=== PATIENT | male | born 2000 | race Caucasian/White ===

== ENCOUNTER 2024-05-23 09:43 | Inpatient (IN) | payer BC, MEDICAID, SELFPAY ==
--- NOTE | 2024-05-23 | ECG_ITS ---
Test Reason : prolonged qt? Blood Pressure : / mmHG Vent. Rate : 095 BPM Atrial Rate : 095 BPM P-R Int : 156 ms QRS Dur : 098 ms QT Int : 338 ms P-R-T Axes : 069 070 060 degrees QTc Int : 424 ms Normal sinus rhythm Normal ECG No previous ECGs available Referred By: Generic ED Physician Electronically Signed By:LISA GARRIDO
--- NOTE | ~2024-05-23 | MR_ITS ---
EXAMINATION: MR BRAIN WITHOUT AND WITH CONTRAST CLINICAL INFORMATION: neur Sx and psychosis COMPARISON: None TECHNIQUE: Multiplanar multisequence MR imaging of the brain was obtained without and following the administration of 9 mL Gadavist intravenous contrast. FINDINGS: There is no acute infarct on diffusion-weighted imaging. There is no intracranial hemorrhage on iron-sensitive imaging. No extra-axial collection or mass effect/herniation. Normal parenchymal signal characteristics. No hydrocephalus. The ventricles are normal in morphology and size. No abnormal parenchymal or extra-axial enhancement. The major flow voids at the skull base are preserved. The midline structures are normal. The cerebellar tonsils are normally positioned. The craniocervical junction is normal. Marrow signal is within normal limits. The visualized soft tissues are without significant abnormality. Mild paranasal sinus mucosal thickening. Small retention cysts in the right frontal and posterior right ethmoid sinuses. MR/MR head/brain wo/w con IMPRESSION: Unremarkable contrast enhanced MRI of the brain. Electronically signed by: Misha Spears MD 05/29/2024 12:43 PM EDT
--- NOTE | ~2024-05-23 | XR_ITS ---
EXAMINATION: CHEST 2 VIEWS CLINICAL INFORMATION: SOB. COMPARISON: No recent pertinent prior studies are available for comparison. TECHNIQUE: PA and lateral views of the chest obtained. FINDINGS: The lungs are well expanded. No focal infiltrate, effusion, edema, or pneumothorax. Cardiac and mediastinal silhouettes are within normal limits for technique. No acute bony abnormality seen XR/XR chest 2V IMPRESSION: No evidence of acute disease Electronically signed by: Cholo Lopez MD 05/24/2024 04:32 PM EDT
[2024-05-23 09:52] VITALS: BP 149/95; PULSE 94; RESP 16; TEMP 36; O2SAT 99; BMI 25.6
[2024-05-23 10:12] LABS: MANUAL DIFF FLAG NO
[2024-05-23 10:16] LABS: Appearance Urine Clear; Basophils Percent Auto 0.2 % (0-2); Color Urine Yellow; Eosinophils Percent Auto 0.3 % (0-4); Glucose Urine UA Negative (Negative); Hematocrit 47.1 % (42.0-52.0); Imm Gran Abs Auto 0.04 X10*3/uL (0.00-0.03); Imm Gran Pct Auto 0.4 % (0.0-0.4); Leukocyte Esterase Urine Negative (Negative); Lymphocytes Absolute Auto 0.9 X10*3/uL (1.2-4.9); Lymphocytes Percent Auto 9.3 % (20-40); Mean Corpuscular Hemoglobin 28.5 pg (27.0-33.0); Mean Platelet Volume 8.2 fL (9.4-12.4); Monocytes Absolute Auto 0.6 X10*3/uL (0.1-1.2); Monocytes Percent Auto 6.6 % (2-11); Neutrophils Absolute Auto 7.7 x10*3/uL (2.0-8.3); Neutrophils Percent Auto 83.2 % (45-73); Nitrite Urine Negative (Negative); Platelet Count 258 X10*3/uL (160-400); Red Blood Count 5.61 X10*6/uL (4.60-5.80); Red Cell Distribution Width 13.2 % (11.0-16.0); Specific Gravity - Urine >= 1.030 (1.005-1.025); Urine Blood Negative (Negative); Urine Ketones Negative (Negative); Urine Protein Negative (Neg-Trace); White Blood Count 9.3 X10*3/uL (4.8-10.8)
[2024-05-23 10:25] LABS: Amphetamine Screen Urine Not Detected (Not Detect); Barbiturates, Urine Not Detected (Not Detect); Benzodiazepines Screen Urine Not Detected (Not Detect); Buprenorphine Scr Not Detected (Not Detect); Cannabinoid Screen Urine Not Detected (Not Detect); Cocaine Screen Urine Not Detected (Not Detect); Fentanyl, urine Not Detected (Not Detect); Methadone Screen, Urine Not Detected (Not Detect); Opiate Screen Urine Not Detected (Not Detect); Oxycodone Screen Urine Not Detected (Not Detect); Phencyclidine Screen Urine Not Detected (Not Detect)
[2024-05-23 10:26] LABS: Alanine Aminotransferase 26 U/L (0-40); Albumin Level 4.8 g/dL (3.5-5.0); Alkaline Phosphatase 39 U/L (39-117); Anion Gap 14 (12-20); Aspartate Amino Transferase 20 U/L (5-37); Bilirubin Total 0.8 mg/dL (0.0-1.0); Blood Urea Nitrogen 15 mg/dL (9-16); Calcium 10.1 mg/dL (8.4-10.2); Carbon Dioxide 24 mmol/L (22-29); Chloride 106 mmol/L (96-108); Creatinine Clr Calc Pharmacy 128.2; Estimated Glomerular Filt Rate > 60; Glucose Random 126 mg/dL (60-115); Sodium 140 mmol/L (135-145); Total Protein 8.4 g/dL (6.5-8.0)
[2024-05-23 10:32] VITALS: RESP 16
--- NOTE | 2024-05-23 10:41 | PC.NURSE ---
Pt is calm and cooperative, endorsing HI thoughts without a specific plan. He reports that he has been having these intrusive HI thoughts for a few months now. Was recently admitted to [facility] but felt his stay there was not helpful. he states that he spent the majority of his stay in his room, not benefitting from treatment, mom is at the bedside and agrees the stay there was non-beneficial. per mom, patient was recently homeless and they got him back home about 1 month ago where he went to respite but left early. Patient denies SI at this time, is calm and cooperative, alert and oriented x4, no apparent distress at this time
--- NOTE | 2024-05-23 11:12 | ED.GENADULT ---
HPI - General Adult General Chief complaint: Psychiatric Symptoms Stated complaint: behavioral and medical issues Time Seen by Provider: 05/23/24 11:12 Source: patient Mode of arrival: ambulatory Limitations: no limitations History of Present Illness ED Provider: Berna Godinez PA-C HPI narrative: Patient is a 23 year old assigned male at with a history of headaches presenting to the emergency department today with a right sided headache and intrusive thoughts to hurt people. Patient states that these thoughts have been going on for months and he has tried multiple medications and multiple facilities but has not been able to get them under control. Patient states that he was also recently seen for these right sided headaches, had a CT / CTA done, that did not show anything acute. States that he has an appointment scheduled with a neurologist this upcoming Saturday for these headaches. Patient denies any dizziness, lightheadedness, abdominal pain, nausea, vomiting, fever, chills, blurry vision, double vision, loss of vision, chest pain, difficulty breathing, shortness of breath, back pain, night sweats, pain with urination, increased urinary frequency, increased urinary urgency, blood in his urine or stool, syncope or a near syncopal episode, recent trauma or falls, bowel incontinence, bladder incontinence, or any other complaints at this time. Relieving factors: none Exacerbating factors: none Associated symptoms: denies other symptoms Related Data Home Medications ?Medication ?Instructions ?Recorded ?Confirmed clonidine HCl 0.1 mg tablet 0.1 mg PO QID 05/23/24 05/23/24 escitalopram oxalate 5 mg tablet 5 mg PO DAILY 05/23/24 05/23/24 nicotine 21 mg/24 hr daily 1 patch topical DAILY 05/23/24 05/23/24 transdermal patch olanzapine 20 mg tablet 20 mg PO BEDTIME 05/23/24 05/23/24 Allergies Allergy/AdvReac Type Severity Reaction Status Date / Time morphine Allergy Rash Verified 05/23/24 09:54 oxycodone Allergy Rash Verified 05/23/24 09:54 Review of Systems Constitutional: Constitutional: Reports no additional constitutional complaints, Denies chills, Denies fever(s), Reports headache(s) and Denies night sweats Eyes: Eyes: Reports no additional eye complaints, Denies blurry vision, Denies change in vision, Denies diplopia, Denies eye discharge, Denies loss of vision and Denies eye pain ENT: Denies dizziness and Reports headache(s) Cardiovascular: Cardiovascular: Reports no additional cardiovascular complaints, Denies chest pain, Denies lightheadedness, Denies Loss of Consciousness and Denies dyspnea Respiratory: Respiratory: Reports no additional respiratory complaints and Denies dyspnea Gastrointestinal: Gastrointestinal: Reports no additional gastrointestinal complaints, Denies abdominal pain, Denies melena, Denies hematochezia, Denies change in bowel habits and Denies change in stool character Genitourinary: Genitourinary: Reports no additional male genitourinary complaints, Denies hematuria, Denies oliguria, Denies difficulty urinating, Denies dysuria, Denies urinary frequency, Denies urinary hesitancy, Denies urinary incontinence and Denies urinary urgency Musculoskeletal: Musculoskeletal: Reports no additional musculoskeletal complaints, Denies numbness and Denies tingling Neurologic: Denies dizziness, Reports headache(s), Denies loss of vision, Denies numbness and Denies tingling Psychiatric: Psychiatric: Reports homicidal ideation Endocrine: Endocrine: Reports no additional endocrine complaints Hematologic/Lymphatic: Hematologic/Lymphatic: Reports no additional hematologic/lymphatic complaints Allergic/Immunologic: Allergic/Immunologic: Reports no additional allergic/immunologic complaints PMFSH Past Medical History Attestation statement: The following information was validated with the patient. Source: old records reviewed and nursing notes reviewed Social History Social History Smoked in Last 30 Days: Yes Use of substances other than those prescribed or required for medical reasons: No Advance Directives: No Do you have a plan to hurt others: No Plan Physical Exam ED Vital Signs: Vital Signs - 24 hr 05/23/24 09:52 05/23/24 10:32 05/23/24 13:34 Temperature 96.8 F Pulse Rate 94 Respiratory Rate 16 16 14 Blood Pressure 149/95 H Pulse Oximetry 99 Oxygen Delivery Method Room Air 05/23/24 19:49 05/23/24 19:53 05/24/24 06:18 Temperature 98.2 F 98.2 F Pulse Rate 110 H 82 Respiratory Rate 18 17 Blood Pressure 125/74 125/74 112/67 Pulse Oximetry 96 99 Oxygen Delivery Method Room Air Room Air BMI result Body Mass Index 25.6 Const General: cooperative, no acute distress, alert and awake Nutritional Appearance: well nourished Orientation/consciousness: patient oriented x3 Limitations: no limitations HENMT Head: Yes normal to inspection and Yes atraumatic Ears: hearing grossly normal bilaterally and external ears normal General nose exam: Normal external nose present, no nasal discharge noted and no epistaxis Face and sinus: Yes normal facial exam, No abrasion and No laceration Mouth: Normal oral and palatal mucosa present, no drooling and no muffled voice Eyes General: appearance normal, both eyes and all related structures Periorbital: periorbital findings normal Eyelids: Yes eyelids normal Conjunctivae: conjunctivae normal Pupils: Equal, round and reactive pupils present EOM: EOMs intact bilaterally Neck Neck: Yes normal visual inspection, Yes full ROM and Yes no lymphadenopathy Chest Chest palpation & inspection: normal inspection of the chest Resp Effort & Inspection: normal respiratory effort and able to speak in complete sentences GI Inspection: Yes normal to inspection Neuro General: patient oriented x3 and moves all extremities Cranial nerves: Yes Equal, round and reactive pupils present Cognition (Neuro): normal cognition Extrem General: Yes normal to inspection, Yes full ROM and Yes capillary refill normal Psych Appearance: grossly normal Mental Status: mental status grossly normal Affect: normal affect Attitude: cooperative Thought process: Normal thought process present Thought content: Normal thought content present Insight: Good insight present (Psych) Medications Administered Generic Name Dose Route Start Last Admin Trade Name Freq PRN Reason Stop Dose Admin Clonidine HCl 0.1 mg 05/23/24 21:00 05/23/24 19:53 Clonidine Hcl 0.1 Mg Tablet PO 0.1 mg QID RAVEN Administration Protocol Olanzapine 20 mg 05/23/24 21:00 05/23/24 19:53 Olanzapine 10 Mg Tablet PO 20 mg BEDTIME RAVEN Administration Discontinued Medications Generic Name Dose Route Start Last Admin Trade Name Freq PRN Reason Stop Dose Admin Acetaminophen/Butalbital/Caffeine 1 tab 05/23/24 12:49 05/23/24 13:19 Butalb/Acetamin/Caff 50/325/40 Tablet PO 05/23/24 12:50 1 tab ONCE ONE Administration Lorazepam 2 mg 05/23/24 11:15 05/23/24 11:30 Lorazepam 1 Mg Tablet PO 05/23/24 11:16 2 mg ONCE ONE Administration Medical Decision Making Medical Decision Making MDM Narrative: Patient is a 23 year old assigned male at with a history of headaches presenting to the emergency department today with a headache and intrusive thoughts to hurt others. Patient's physical exam was unremarkable. Patient's blood work was unremarkable. Patient's urine showed no acute process. I explained my physical exam findings as well as all test results to the patient. I answered all questions asked by the patient. Patient's disposition will be determined after CARE team evaluation. 05/24/2024 at 06:52 hours, insert name's note Continue physician observation Patient was been in the emergency department for 21 hours and 8 minutes. Patient has been evaluated by the care team and is a section 12 and is in in-patient bed search for passive homicidal ideation. There were no reported incidents on this patient by the overnight nursing staff.Patient will remain in the emergency department Behavioral Health Unit until disposition can be determined or until patient's symptoms improve over time. Differential Diagnosis Differential Diagnoses: The differential diagnosis associated with the presentation includes Intrusive thoughts Tension headaches Cluster headaches Trigeminal neuralgia Migraine Admission/Observation Consideration of admission/observation: Escalation of care including admission/observation considered Patient's disposition will be determined after CARE team evaluation. Lab Data [facility] Lab Attestation statement: I reviewed the patient's lab results. My interpretation of these results are in the MDM Rationale portion of this note. 05/23/24 10:07 05/23/24 10:07 Labs: Lab Results 05/23/24 05/23/24 Range/Units 10:07 13:10 WBC 9.3 (4.8-10.8) X10*3/uL RBC 5.61 (4.60-5.80) X10*6/uL Hgb 16.0 (14.0-18.0) g/dl Hct 47.1 (42.0-52.0) % MCV 84.0 (80.0-98.0) fL MCH 28.5 (27.0-33.0) pg MCHC 34.0 (31.0-36.0) g/dl RDW 13.2 (11.0-16.0) % Plt Count 258 (160-400) X10*3/uL MPV 8.2 L (9.4-12.4) fL Immature Gran % (Auto) 0.4 (0.0-0.4) % Neut % (Auto) 83.2 H (45-73) % Lymph % (Auto) 9.3 L (20-40) % Villalba % (Auto) 6.6 (2-11) % Eos % (Auto) 0.3 (0-4) % Baso % (Auto) 0.2 (0-2) % Lymph # (Auto) 0.9 L (1.2-4.9) X10*3/uL Villalba # (Auto) 0.6 (0.1-1.2) X10*3/uL Eos # (Auto) 0.0 (0.0-0.4) X10*3/uL Baso # (Auto) 0.0 (0.0-0.2) X10*3/uL Abs Immat Gran (auto) 0.04 H (0.00-0.03) X10*3/uL Absolute Neuts (auto) 7.7 (2.0-8.3) x10*3/uL Absolute Nucleated RBC 0.000 (0.0-0.012) X10*3/uL Nucleated RBC % (auto) 0.0 (0.0-0.2) /100WBC Sodium 140 (135-145) mmol/L Potassium 4.0 (3.3-5.1) mmol/L Chloride 106 (96-108) mmol/L Carbon Dioxide 24 (22-29) mmol/L Anion Gap 14 (12-20) BUN 15 (9-16) mg/dL Creatinine 1.03 (0.5-1.4) mg/dL Estim Creat Clear Calc 128.2 Estimated GFR > 60 Random Glucose 126 H (60-115) mg/dL Calcium 10.1 (8.4-10.2) mg/dL Total Bilirubin 0.8 (0.0-1.0) mg/dL AST 20 (5-37) U/L ALT 26 (0-40) U/L Alkaline Phosphatase 39 (39-117) U/L Total Protein 8.4 H (6.5-8.0) g/dL Albumin 4.8 (3.5-5.0) g/dL Urine Color Yellow Urine Appearance Clear Urine pH 7.0 (5.0-9.0) Ur Specific Ulmer >= 1.030 H (1.005-1.025) Urine Protein Negative (Neg-Trace) mg/dL Urine Glucose (UA) Negative (Negative) mg/dL Urine Ketones Negative (Negative) mg/dL Urine Blood Negative (Negative) Urine Nitrite Negative (Negative) Ur Leukocyte Esterase Negative (Negative) Urine Opiates Screen Not Detected (Not Detect) Ur Buprenorphine Scrn Not Detected (Not Detect) ng/mL Ur Oxycodone Screen Not Detected (Not Detect) ng/mL Urine Methadone Screen Not Detected (Not Detect) ng/mL Urine Fentanyl Screen Not Detected (Not Detect) Ur Barbiturates Screen Not Detected (Not Detect) Ur Phencyclidine Scrn Not Detected (Not Detect) Ur Amphetamines Screen Not Detected (Not Detect) U Benzodiazepines Scrn Not Detected (Not Detect) Urine Cocaine Screen Not Detected (Not Detect) U Marijuana (THC) Screen Not Detected (Not Detect) T.pallidum Ab (EIA) Nonreactive (Nonreactive) Critical Care Time Critical Care Time Critical Care Time: Yes Total Critical Care Time: 42 Attestation: I spent 42 minutes of Critical Care Time with this patient. This does not include time spent on separately reported billable procedures. Discharge Plan Discharge Clinical Impression: Homicidal ideation, Headache Patient Disposition: Still a Patient Prescriptions: No Action clonidine HCl 0.1 mg tablet 0.1 mg PO QID nicotine 21 mg/24 hr patch 24 hour 1 patch topical DAILY olanzapine 20 mg tablet 20 mg PO BEDTIME escitalopram oxalate 5 mg tablet 5 mg PO DAILY Interventions: Finley-Suicide Risk Severity Scale Last Done: 05/23/24 10:31 Print Language: [place]ese
[2024-05-23] MEDS: LORazepam 1 MG TABLET 2 MG PO (11:30)
--- NOTE | 2024-05-23 13:07 | PC.NURSE ---
pt reports feeling like his head is burning (approximately 30 minutes after taking Ativan PO). RAJEEV stephenson, saw patient at bedside
[2024-05-23] MEDS: Butalb/Acetamin/Caff 50/325/40 TABLET 1 TAB PO (13:19)
[2024-05-23 13:34] VITALS: RESP 14
[2024-05-23 13:51] LABS: Syphilis Screen Nonreactive (Nonreactive)
--- NOTE | 2024-05-23 17:02 | PHA.MEDREC ---
Pharmacy Consult ? Medication Reconciliation Pharmacy has reviewed the medication reconciliation.
--- NOTE | 2024-05-23 19:18 | PC.NURSE ---
patient appears to remain at rest presently respirations are even and unlabored patient appears in no distress.
[2024-05-23 19:49] VITALS: BP 125/74; PULSE 110; RESP 18; TEMP 36.8; O2SAT 96
[2024-05-23 19:53] VITALS: BP 125/74
[2024-05-23] MEDS: cloNIDine HCL 0.1 MG TABLET PO (19:53)
[2024-05-23] MEDS: OLANZapine 10 MG TABLET 20 MG PO (19:53)
[2024-05-24 06:18] VITALS: BP 112/67; PULSE 82; RESP 17; TEMP 36.8; O2SAT 99
--- NOTE | 2024-05-24 06:58 | PC.NURSE ---
Assumed care of patient at 0645, patient appears to be sleeping, respirations even and unlabored, no apparent distress noted. Continue plan of care for inpatient bedsearch on section 12a
[2024-05-24] MEDS: Nicotine 21 MG PATCH.TD24 TRANSDERMA (08:38)
[2024-05-24] MEDS: Escitalopram Oxalate 5 MG TABLET PO (08:38)
[2024-05-24] MEDS: Butalb/Acetamin/Caff 50/325/40 TABLET 1 TAB PO (11:19)
--- NOTE | 2024-05-24 11:52 | PC.NURSE ---
Pts aunt stopped by, left phone number so patient can call if he wants someone to talk to or hang out with. Lise (Aunt): [phone]
[2024-05-24 14:00] VITALS: PULSE 97; RESP 16; TEMP 36.6; O2SAT 97
[2024-05-24] MEDS: LORazepam 1 MG TABLET PO (15:02)
--- NOTE | 2024-05-24 15:07 | PC.NURSE ---
Pt reporting some mild dif breathing with inspiration. All lung sounds clear at this time. He is also reporting feeling run down an feverish, pt found to have low grade temp of 100.1. Plan for covid swab, Dr. Srikanth modi texted to determine next steps at this time
[2024-05-24 15:08] VITALS: TEMP 37.8
[2024-05-24 16:04] LABS: Influenza A PCR NEGATIVE (Negative); Influenza B PCR NEGATIVE (Negative); Resp Syncy Virus RNA Qual PCR NEGATIVE (Negative); SARS COV2 PCR INHOUSE NEGATIVE (Negative)
--- NOTE | 2024-05-24 19:02 | PC.NURSE ---
patient appears to remain at rest presently respirations are even and unlabored patient appears in no distress
[2024-05-24] MEDS: cloNIDine HCL 0.1 MG TABLET PO (22:02)
[2024-05-24] MEDS: OLANZapine 10 MG TABLET 20 MG PO (23:09)
[2024-05-24 23:12] VITALS: BP 112/66; PULSE 125; RESP 16; TEMP 36.7; O2SAT 96
--- NOTE | 2024-05-25 | ECG_ITS ---
Test Reason : CHEST PAIN Blood Pressure : / mmHG Vent. Rate : 090 BPM Atrial Rate : 090 BPM P-R Int : 148 ms QRS Dur : 096 ms QT Int : 336 ms P-R-T Axes : 064 075 062 degrees QTc Int : 411 ms Normal sinus rhythm Normal ECG When compared with ECG of 23-MAY-2024 09:56, No significant change was found Referred By: Generic ED Physician Electronically Signed By:LISA GARRIDO
[2024-05-25 06:03] VITALS: BP 130/78; PULSE 67; RESP 16; TEMP 36.3; O2SAT 97
[2024-05-25] MEDS: Nicotine 21 MG PATCH.TD24 TRANSDERMA (08:20)
[2024-05-25 10:10] VITALS: BP 142/83; PULSE 98; RESP 18; TEMP 36.5; O2SAT 99
[2024-05-25 10:16] LABS: Glucose, Whole Blood 110 mg/dL (60-115)
[2024-05-25] MEDS: LORazepam 1 MG TABLET PO (11:36)
[2024-05-25 18:04] LABS: Lyme Abs Screen <0.90 index
[2024-05-25 18:19] LABS: A. Phagocytphilium DNA,RT-PCR NOT DETECTED (NOT DETECTED); Babesia Microti DNA, RT-PCR NOT DETECTED (NOT DETECTED); Borrelia Miyamotoi,DNA RT-PCR NOT DETECTED (NOT DETECTED); E.Chaffeensis DNA RT-PCR NOT DETECTED (NOT DETECTED); Lyme(Borrelia ssp)DNA RT-PCR NOT DETECTED (NOT DETECTED)
--- NOTE | 2024-05-25 20:48 | PC.NURSE ---
patient appears to continue to remain at rest, respirations are even and unlabored patient appears in no distress.
[2024-05-25] MEDS: OLANZapine 10 MG TABLET 20 MG PO (21:15)
[2024-05-25 21:16] VITALS: BP 135/75; PULSE 105; RESP 18; TEMP 36.3; O2SAT 97
[2024-05-26] MEDS: Nicotine 21 MG PATCH.TD24 TRANSDERMA (08:06)
--- NOTE | 2024-05-26 14:08 | PC.NURSE ---
Patient is eating a pudding at this time.
[2024-05-26] MEDS: Acetaminophen 325 MG TABLET 650 MG PO (14:18)
[2024-05-26 15:40] VITALS: BP 137/85; PULSE 109; RESP 22; TEMP 36.7; O2SAT 98
[2024-05-26] MEDS: LORazepam 1 MG TABLET 2 MG PO (16:20)
[2024-05-26 17:42] VITALS: PULSE 98; RESP 18; O2SAT 99
[2024-05-26 17:43] VITALS: BMI 25.7
--- NOTE | 2024-05-26 19:04 | PC.ADMIT ---
Gail is a 23 y/o male that was admitted to at 1535 from? the pod on CV for treatment of psychosis and HI. Pt presented to the ED after his mother encouraged him d/t increasing intrusive thoughts and command AH telling him to harm others. Pt was recently d/c?d on 05/21/24 from [facility]. Pt has been refusing to take his Lexapro because he ?doesn't like the way it makes me feel?. Recently pt has stopped attending to his ADLs. Pt reported ?I just don?t feel right. I feel like my head is not clear. There is something wrong with me.? Pt was cooperative with some of the admission process then showered and slept.? Pt was slightly slow to respond and offered limited responses. A&O x4. Mood is anxious. Affect is flat. Speech clear, tone was flat.? Pt reported having AH that are command in nature. The AH are telling him to harm others. Mother reported that he has a hx of trauma but did not elaborate. Pt recently impulsively moved to [place] where he rented a car and refused to return in, then moved to [place] where he was homeless and has recently moved back home.? Pt denied SI at this time but did endorse intrusive HI thoughts. Thoughts include killing his dog and harming his grandmother. Pt is paranoid and believes that people are reading and hearing his thoughts. Pt reported poor appetite and sleep. Pt eye contact was intense. Tox Screen was negative. Hx of medication non compliance.? Pt reported that he uses a vape frequently and occasionally smokes marijuana and drinks alcohol. Pt is unemployed and currently lives with his grandmother. Pt was compliant with skin check, acne scarring throughout back. Pt was placed on 15 min checks for safety. Tox screen was negative.?
[2024-05-26] MEDS: OLANZapine 10 MG TABLET 30 MG PO (19:53)
[2024-05-26 20:00] VITALS: BP 127/74; PULSE 95; RESP 18; TEMP 36.4; O2SAT 97
[2024-05-26] MEDS: cloNIDine HCL 0.1 MG TABLET PO (20:07)
[2024-05-27 07:48] VITALS: BP 112/57; PULSE 81; RESP 20; TEMP 37; O2SAT 98
[2024-05-27] MEDS: Nicotine 21 MG PATCH.TD24 TRANSDERMA (08:38)
--- NOTE | 2024-05-27 10:30 | P.HPPS_ITS ---
HPI Date of Service: 05/27/24 Chief Complaint: HI/psychosis Sources of Information: patient interviewed, chart reviewed and crisis/core team assessment reviewed HPI Subjective Notes: Craft Warning and Conditional Voluntary Narrative: 23 yo male, to ER with mother due to increasing sx of intrusive thoughts to kill his dog, CAH telling him to harm others, HI toward grandmother whom he lives with, difficulty with ADL's (mom reports no shower~3 days), paranoia, decrease in focus, and feeling others are watching him, listening to him and reading his thoughts. Reports CAH telling him to act on intrusive homicidal thoughts. Reports poor sleep, appetite. Pt tells team he wants help. Mother reports pt went to [place] impulsively to live with a friend, returning 1.5 months ago. While there, he rented a vehicle, refused to return it, tinted the windows and attempted to keep it. He was asked to leave friends apartment, so he went to [place] and lived on the streets. Met with pt today who reports he does think that others are watching him, listening to him, saying critical things about him and he is having intrusive thoughts to harm his family. Reports these sx have been present for a few months, and the intrusive thoughts have just started. Reports symptoms of memory loss, concentration decrease, decrease in social skills, I feel like I am losing myself to psychosis. I think I will need to stay a long while. Past Psychiatric History: IP: 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 Next appt 06/08/24 Fuad Estrada [phone] EMDR- scheduled for 05/27/24 to begin PHP: Hx Trials: Lexapro- makes me feel wierd , causes pressure headache, Sertraline, Lamictal, Vyvanse, Olanzapine- I think it should increase Medical Evaluation Reviewed: Yes [facility] Medical History (Updated 05/27/24 @ 15:45 by Balbina Martínez, EQUITY RESEARCH ANALYST) Psychosis Narrative: Neuro appt scheduled 05/27/24 for pressure,pain in his head --CAT Scan x 2 with [facility] Denies seizure, denies migraine hx SOB- it can be hard to breathe when I talk Family History: Denies Social History: Born in [place] Raised by his mother No siblings Graduated high school, did one semester of college Lives with grandmother and her partner 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 Enjoys driving, but my car broke down Denies Legal issues Substance History: hx of attempts to manage sx with alcohol cannabis nicotine vaping Trauma History: Affirms Diagnostics Vital Signs (24Hr): Vital Signs - 24 hr 05/26/24 15:40 05/26/24 17:42 05/26/24 20:00 Temperature 98.1 F 97.6 F Pulse Rate 109 H 98 95 Respiratory Rate 22 H 18 18 Blood Pressure 137/85 127/74 Pulse Oximetry 98 99 97 Oxygen Delivery Method Room Air Room Air Room Air 05/27/24 07:48 Temperature 98.6 F Pulse Rate 81 Respiratory Rate 20 Blood Pressure 112/57 L Pulse Oximetry 98 Oxygen Delivery Method Room Air BMI result Body Mass Index 25.7 Labs 05/23/24 10:07 05/23/24 10:07 Labs: Laboratory Results - last 48 hr 05/23/24 13:10 A.phagocytophil DNA PCR NOT DETECTED Babesia microti DNA PCR NOT DETECTED Borrelia sp DNA (PCR) NOT DETECTED Lyme Screen IgG & IgM <0.90 Lyme Progressive Test TNP Borrelia miyamotoi (PCR) NOT DETECTED E.chaffeensis DNA (PCR) NOT DETECTED Tick-borne Disease PCR SEE NOTE EKG EKG Comment: Rate 90, QTc 411, NSR Imaging Radiology Impressions: ITS Impressions Chest X-Ray 05/24/24 16:15 IMPRESSION: No evidence of acute disease Electronically signed by: Cholo Lopez MD 05/24/2024 04:32 PM EDT Meds/Allergies Meds Home Medications ?Medication ?Instructions ?Recorded ?Confirmed ?Type clonidine HCl 0.1 mg tablet 0.1 mg PO QID 05/23/24 05/23/24 History escitalopram oxalate 5 mg tablet 5 mg PO DAILY 09/07/24 09/07/24 History nicotine 21 mg/24 hr daily 1 patch topical DAILY 05/23/24 05/23/24 History transdermal patch olanzapine 20 mg tablet 20 mg PO BEDTIME 05/23/24 05/23/24 History fluticasone propionate 50 2 spray intranasal BID 05/24/24 05/24/24 History mcg/actuation nasal spray,suspension Allergies Allergies Allergy/AdvReac Type Severity Reaction Status Date / Time morphine Allergy Rash Verified 05/23/24 09:54 oxycodone Allergy Rash Verified 05/23/24 09:54 Mental Status Exam Mental Status Exam Patient Appearance: Appropriate Patient Orientation: Person, Place, Time and Situation Level of Consciousness: Restless and Alert Patient Behavior: Talkative, Suspicious, Anxious, Distractible and Good Eye Contact Mood Description: Anxious and Apprehensive Affect Description: Anxious and Apprehensive Patient Cognition Impaired: No Ability to Follow Directions: Good Speech Pattern: Spontaneous Speech Memory Description: Intact Hallucinations: Auditory Delusions: Paranoid Ideation and Present Perceptual Disturbances: Depersonalization and Derealization Thought Process: Distracted and Goal Oriented Thought Content: positive for Circumstantial, positive for Goal Oriented, positive for Perseveration, positive for Preoccupation and positive for Homicidal Ideation (CAH) Depressive Symptoms: Increased Anxiety, Insomnia, Difficulty Sleeping, Changes in Appetite and Difficulty Concentrating Judgement: Poor Assessment & Plan Assessment & Plan (1) Psychosis: Status: Acute Code(s): F29 - Unspecified psychosis not due to a substance or known physiological condition Plan Psychosis. Plan: Admit to M3, conditional voluntary, 15 minute checks TSH, B12, Folate, A1C, Lipid Panel Continue Clonidine, Lorazepam prn, Trazodone prn, recent Olanzapine increase Haldol 5 mg bid to target psychotic thought process Patient educated on: medication risk/benefits and therapeutic strategies Reason for continued inpatient stay Substantial Risk for: rapid decompensation Statement Statement: I have reviewed the history and physical and performed a pertinent examination on my patient. No changes have occurred unless specified. If the History and Physical was not performed prior to admission, the Hospitalist's service will be consulted for completing the admission physical. Time Spent With Patient Time: Total time managing care of this patient today ____ minutes.
[2024-05-27 16:40] VITALS: BP 142/80; PULSE 70
[2024-05-27 20:00] VITALS: BP 121/67; PULSE 99; RESP 16; TEMP 36.8; O2SAT 98
[2024-05-27] MEDS: Benztropine Mesylate 0.5 MG TABLET PO (20:18)
[2024-05-27] MEDS: HaloperidoL 1 MG TABLET 2 MG PO (20:18)
[2024-05-27] MEDS: OLANZapine 10 MG TABLET 30 MG PO (20:18)
[2024-05-27] MEDS: cloNIDine HCL 0.1 MG TABLET PO (20:19)
[2024-05-28 08:00] VITALS: BP 142/77; PULSE 83; RESP 16; TEMP 36.8; O2SAT 98
[2024-05-28] MEDS: Nicotine 21 MG PATCH.TD24 TRANSDERMA (08:58)
[2024-05-28 09:30] VITALS: BP 138/74; PULSE 63; RESP 18; TEMP 37.3; O2SAT 99
[2024-05-28] MEDS: Divalproex Sodium 500 MG TABLET.DR PO (12:32)
--- NOTE | 2024-05-28 13:47 | P.CNNE_ITS ---
History of Present Illness Data of Consult Service Date: 05/28/24 Primary Care Provider: Randall Hicks DNP HPI Reason for consult: Headache and psychosis 23 years old man who was admitted in hospital apparently for 1st episode of psychosis. He also reported that for last 5-6 months he was having right-sided head pressure and pain. He also said that he had been to emergency room and head CT scan done that was okay. He was going to see a neurologist as an outpatient and was considering having an MRI. There was no history of any seizure disorder. He did not volunteer any problem of weakness but stated that walking was difficult. Head pressure pain was going on every day all day. Review of Systems 2 Review of Systems: No recent trauma or seizure-like episode PMFSH Past Medical History Medical History (Updated 05/28/24 @ 13:50 by Senait Garcia MD) Psychosis Social History Social History Household Members: Family Housing: House Do you presently have visiting nurse or other home services: No Patient Tobacco Use Status: Current everyday Tobacco user Smoked in Last 30 Days: Yes e-Cigarette/Vaping Use: Currently Using Frequency of e-Cigarette/Vaping Use: everyday Patient Interested in Nicotine Replacement: Yes Patient Given Instructions on How to Stop Smoking: Yes Date Education Initiated: 05/26/24 Second Hand Smoke Exposure: No Use of substances other than those prescribed or required for medical reasons: Yes Substance Use Type: Marijuana Substance Use Frequency: Occasionally Last Used Substance: Unknown Currently Displaying Signs/Symptoms of Drug Intoxication Withdrawal: No Any prior treatment program specific to substance use: No Have you been hit, kicked, punched, or otherwise hurt by someone within the past year? If so, by whom?: No Do you feel safe in your current relationship?: No Current Relationship Is there a partner from a previous relationship who is making you feel unsafe now?: No Are you made to feel afraid or neglected: No Advance Directives: No Advance Directives Information Provided: No (Declined) Do you have thoughts of harming others: None Do you have a plan to hurt others: No Plan Recently lost weight without trying: No How much weight loss: Not applicable Eating poorly because of decreased appetite: No Nutrition screen score: 0 Nutrition Risks: No Nutritional Risk Poor oral hygiene: Yes (recently has stopped tending to ADLs) service: No Sexual orientation: Don't Know Meds Allergies Allergy/AdvReac Type Severity Reaction Status Date / Time morphine Allergy Rash Verified 05/23/24 09:54 oxycodone Allergy Rash Verified 05/23/24 09:54 Active Medications: Current Medications Acetaminophen (Acetaminophen 325 Mg Tablet) 650 mg PO Q6H PRN PRN Reason: Headache/Pain Mild Scale (1-3) Al Hydroxide/Mg Hydroxide (Magnesium Hydrox/Alum Hydrox 30 Ml Oral.Susp) 30 ml PO Q6H PRN PRN Reason: Heartburn/Nausea Benztropine Mesylate (Benztropine Mesylate 0.5 Mg Tablet) 0.5 mg PO BID [facility] Last Admin: 05/28/24 09:04 Dose: Not Given Clonidine HCl (Clonidine Hcl 0.1 Mg Tablet) 0.1 mg PO QID [facility]; Protocol Last Admin: 05/28/24 12:46 Dose: Not Given Divalproex Sodium (Divalproex Sodium Er 500 Mg Tab.Er.24h) 1,000 mg PO ONCE ONE Stop: 05/28/24 21:01 Divalproex Sodium (Divalproex Sodium Er 500 Mg Tab.Er.24h) 1,500 mg PO BEDTIME [facility] Hydroxyzine HCl (Hydroxyzine Hcl 25 Mg Tablet) 25 mg PO Q6H PRN PRN Reason: Anxiety Lorazepam (Lorazepam 1 Mg Tablet) 1 mg PO Q6H PRN PRN Reason: severe anxiety Magnesium Hydroxide (Milk Of Magnesia 30 Ml Oral.Susp) 30 ml PO DAILY PRN PRN Reason: Constipation Nicotine (Nicotine 21 Mg Patch.Td24) 21 mg TRANSDERMA DAILY [facility] Last Admin: 05/28/24 08:58 Dose: 21 mg Nicotine Polacrilex (Nicotine Polacrilex 2 Mg Gum) 4 mg BUCCAL Q2H PRN PRN Reason: Nicotine Cravings Olanzapine (Olanzapine 10 Mg Tablet) 30 mg PO BEDTIME [facility] Last Admin: 05/27/24 20:18 Dose: 30 mg Olanzapine (Olanzapine 5 Mg Tablet) 5 mg PO Q6H PRN PRN Reason: severe anxiety Trazodone HCl (Trazodone Hcl 50 Mg Tablet) 50 mg PO BEDTIME MRX1 PRN PRN Reason: Insomnia Home Medications ?Medication ?Instructions ?Recorded ?Confirmed ?Last Taken ?Type clonidine HCl 0.1 mg tablet 0.1 mg PO QID 05/23/24 05/23/24 Unknown History escitalopram oxalate 5 mg tablet 5 mg PO DAILY 05/23/24 05/23/24 Unknown History nicotine 21 mg/24 hr daily 1 patch topical DAILY 05/23/24 05/23/24 Unknown History transdermal patch olanzapine 20 mg tablet 20 mg PO BEDTIME 05/23/24 05/23/24 Unknown History fluticasone propionate 50 2 spray intranasal BID 05/24/24 05/24/24 05/22/24 History mcg/actuation nasal spray,suspension Physical Exam 2 Vital Signs: Vital Signs: Last Vital Signs Temp 98.3 F 05/28/24 08:00 Pulse 83 05/28/24 08:00 Resp 16 05/28/24 08:00 BP 142/77 H 05/28/24 08:00 Pulse Ox 98 05/28/24 08:00 O2 Del Method Room Air 05/28/24 08:00 BMI result Body Mass Index 25.7 Neuro: Other: He is alert and awake with normal spontaneity of speech fluency comprehension and anxious affect. Face is symmetrical. Visual spain are full. There is minimal right-sided pronator drift. Deep tendon reflexes are trace to 1+ in arms brisker in legs with equivocal plantars. He is able to get up and walk around without difficulty. Speech is normal. Results Labs 05/23/24 10:07 05/23/24 10:07 Assessment and Plan (1) Encephalopathy: Qualifiers: Encephalopathy type: unspecified encephalopathy Qualified Code(s): G 93.40 - Encephalopathy, unspecified Status: Acute 23 years old man who reported right-sided headache for last few months. He was admitted with 1st episode of psychosis but he also reported that he had been to emergency room and had CT scan of brain done. Apparently that did not reveal any significant abnormality. If his history is correct, an MRI of brain with and without contrast is warranted. Procedures Date of Service Date of Service: 05/28/24
--- NOTE | 2024-05-28 15:46 | P.PNPSI_ITS ---
Subjective Subjective Date of Service: 05/28/24 Reason For Visit: HI/psychosis Interim History: appears calm. cooperative. c/o severe anxiety. c/o right-sided head pressure, FERRIS, burning sensation. also c/o dizziness. fell over on his bed twice today, per his report. also c/o chest tightness, like an asthma or panic attack. reports anti-psychotics do not seem to be helping him. agreeable to trial of mood stabilizer VPA. per staff, +RIS. refusing clonidine days. head is all cloudy. isolative. taking meds aside from this morning. slept 8 hours. Mental Status Exam Mental Status Exam Narrative: adequately dressed and groomed. cooperative. no PMA/PMR. speech nml rate, amount, loudness, latency. flattened tone. thoughts linear and logical. affect flat. mood anxious. no SI/HI/AVH expressed. Diagnostics Vital Signs (24Hr): Vital Signs - 24 hr 05/27/24 16:40 05/27/24 20:00 05/28/24 08:00 Temperature 98.2 F 98.3 F Pulse Rate 70 99 83 Respiratory Rate 16 16 Blood Pressure 142/80 H 121/67 142/77 H Pulse Oximetry 98 98 Oxygen Delivery Method Room Air Room Air BMI result Body Mass Index 25.7 Labs 05/23/24 10:07 05/23/24 10:07 Imaging Radiology Impressions: ITS Impressions Chest X-Ray 05/24/24 16:15 IMPRESSION: No evidence of acute disease Electronically signed by: Cholo Lopez MD 05/24/2024 04:32 PM EDT Medications Medications Current Medications Acetaminophen (Acetaminophen 325 Mg Tablet) 650 mg PO Q6H PRN PRN Reason: Headache/Pain Mild Scale (1-3) Al Hydroxide/Mg Hydroxide (Magnesium Hydrox/Alum Hydrox 30 Ml Oral.Susp) 30 ml PO Q6H PRN PRN Reason: Heartburn/Nausea Benztropine Mesylate (Benztropine Mesylate 0.5 Mg Tablet) 0.5 mg PO BID [facility] Last Admin: 05/28/24 09:04 Dose: Not Given Clonidine HCl (Clonidine Hcl 0.1 Mg Tablet) 0.1 mg PO QID [facility]; Protocol Last Admin: 05/28/24 12:46 Dose: Not Given Divalproex Sodium (Divalproex Sodium Er 500 Mg Tab.Er.24h) 1,000 mg PO ONCE ONE Stop: 05/28/24 21:01 Divalproex Sodium (Divalproex Sodium Er 500 Mg Tab.Er.24h) 1,500 mg PO BEDTIME [facility] Hydroxyzine HCl (Hydroxyzine Hcl 25 Mg Tablet) 25 mg PO Q6H PRN PRN Reason: Anxiety Lorazepam (Lorazepam 1 Mg Tablet) 1 mg PO Q6H PRN PRN Reason: severe anxiety Magnesium Hydroxide (Milk Of Magnesia 30 Ml Oral.Susp) 30 ml PO DAILY PRN PRN Reason: Constipation Nicotine (Nicotine 21 Mg Patch.Td24) 21 mg TRANSDERMA DAILY [facility] Last Admin: 05/28/24 08:58 Dose: 21 mg Nicotine Polacrilex (Nicotine Polacrilex 2 Mg Gum) 4 mg BUCCAL Q2H PRN PRN Reason: Nicotine Cravings Olanzapine (Olanzapine 10 Mg Tablet) 30 mg PO BEDTIME [facility] Last Admin: 05/27/24 20:18 Dose: 30 mg Olanzapine (Olanzapine 5 Mg Tablet) 5 mg PO Q6H PRN PRN Reason: severe anxiety Trazodone HCl (Trazodone Hcl 50 Mg Tablet) 50 mg PO BEDTIME MRX1 PRN PRN Reason: Insomnia Allergies Allergies Allergy/AdvReac Type Severity Reaction Status Date / Time morphine Allergy Rash Verified 05/23/24 09:54 oxycodone Allergy Rash Verified 05/23/24 09:54 Assessment & Plan Assessment & Plan (1) Encephalopathy: Qualifiers: Encephalopathy type: unspecified encephalopathy Qualified Code(s): G 93.40 - Encephalopathy, unspecified Status: Acute Code(s): G93.40 - Encephalopathy, unspecified Assessment and Plan: 23 years old man who reported right-sided headache for last few months. He was admitted with 1st episode of psychosis but he also reported that he had been to emergency room and had CT scan of brain done. Apparently that did not reveal any significant abnormality. If his history is correct, an MRI of brain with and without contrast is warranted. (2) Psychosis: Status: Acute Code(s): F29 - Unspecified psychosis not due to a substance or known physiological condition Plan Admit to M3, conditional voluntary, 15 minute checks TSH, B12, Folate, A1C, Lipid Panel Continue Clonidine, Lorazepam prn, Trazodone prn, recent Olanzapine increase Haldol 5 mg bid to target psychotic thought process 05/28: pt refusing haldol. order DCed. reports only feels worse with zyprexa dosing increase. very anxious and tense. agrees to mood stabilizer trial, VPA. also c/o right FERRIS/burning sensation for months, seen by neuro, who recommended MRI. so ordered. Reason for continued inpatient stay Substantial Risk for: harm to self, harm to others and inability to function Time Spent With Patient Time: Total time managing care of this patient today __35__ minutes.
[2024-05-28] MEDS: LORazepam 1 MG TABLET PO (16:30)
[2024-05-28 20:38] VITALS: BP 116/63; PULSE 67; RESP 14; TEMP 36.7; O2SAT 97
[2024-05-28] MEDS: Divalproex Sodium ER 500 MG TAB.ER.24H 1000 MG PO (20:46)
[2024-05-28] MEDS: Benztropine Mesylate 0.5 MG TABLET PO (20:47)
[2024-05-28] MEDS: OLANZapine 10 MG TABLET 30 MG PO (20:47)
[2024-05-28] MEDS: cloNIDine HCL 0.1 MG TABLET PO (20:47)
[2024-05-29 07:41] VITALS: BP 114/63; PULSE 72; RESP 16; TEMP 37.1; O2SAT 98
[2024-05-29] MEDS: Nicotine 21 MG PATCH.TD24 TRANSDERMA ×2 (08:52→12:53)
[2024-05-29 09:56] VITALS: BP 146/82; PULSE 77; RESP 18; O2SAT 98
[2024-05-29] MEDS: gadobutroL 10 ML VIAL IVPUSH (11:45)
--- NOTE | 2024-05-29 16:45 | HO.PSYCHPN ---
Subjective Subjective Date of Service: 05/29/24 Reason For Visit: HI/psychosis Interim History: calm, but appearing very stiff. c/o severe anxiety and unease. reports some improvement this morning, however. continues vague, unable to explain himself. agreeable to continue present mgmt of VPA over the weekend. spoke with pt's mother for 30 minutes re Dx, Tx plan. per staff, feeling out of it. energy up and down. c/o panic attack. taking meds. no FERRSI eves. slept 8 hours. Mental Status Exam Mental Status Exam Narrative: adequately dressed and groomed. cooperative. no PMA/PMR. speech nml rate, amount, loudness, latency. flattened tone. thoughts linear and logical. affect flat. mood anxious. no SI/HI/AVH expressed. Diagnostics Vital Signs (24Hr): Vital Signs - 24 hr 05/28/24 20:38 05/29/24 07:41 05/29/24 09:56 Temperature 98.1 F 98.8 F Pulse Rate 67 72 77 Respiratory Rate 14 16 18 Blood Pressure 116/63 114/63 146/82 H Pulse Oximetry 97 98 98 Oxygen Delivery Method Room Air Room Air Room Air BMI result Body Mass Index 25.7 Labs 05/23/24 10:07 05/23/24 10:07 Imaging Radiology Impressions: ITS Impressions Chest X-Ray 05/24/24 16:15 IMPRESSION: No evidence of acute disease Electronically signed by: Cholo Lopez MD 05/24/2024 04:32 PM EDT Brain MRI 05/29/24 11:29 IMPRESSION: Unremarkable contrast enhanced MRI of the brain. Electronically signed by: Misha Spears MD 05/29/2024 12:43 PM EDT RP Medications Medications Current Medications Acetaminophen (Acetaminophen 325 Mg Tablet) 650 mg PO Q6H PRN PRN Reason: Headache/Pain Mild Scale (1-3) Al Hydroxide/Mg Hydroxide (Magnesium Hydrox/Alum Hydrox 30 Ml Oral.Susp) 30 ml PO Q6H PRN PRN Reason: Heartburn/Nausea Benztropine Mesylate (Benztropine Mesylate 0.5 Mg Tablet) 0.5 mg PO BID [facility] Last Admin: 05/29/24 08:54 Dose: Not Given Clonidine HCl (Clonidine Hcl 0.1 Mg Tablet) 0.1 mg PO QID [facility]; Protocol Last Admin: 05/29/24 12:54 Dose: Not Given Divalproex Sodium (Divalproex Sodium Er 500 Mg Tab.Er.24h) 1,500 mg PO BEDTIME [facility] Hydroxyzine HCl (Hydroxyzine Hcl 25 Mg Tablet) 25 mg PO Q6H PRN PRN Reason: Anxiety Lorazepam (Lorazepam 1 Mg Tablet) 1 mg PO Q4H PRN PRN Reason: severe anxiety Magnesium Hydroxide (Milk Of Magnesia 30 Ml Oral.Susp) 30 ml PO DAILY PRN PRN Reason: Constipation Nicotine (Nicotine 21 Mg Patch.Td24) 21 mg TRANSDERMA DAILY [facility] Last Admin: 05/29/24 08:52 Dose: 21 mg Nicotine Polacrilex (Nicotine Polacrilex 2 Mg Gum) 4 mg BUCCAL Q2H PRN PRN Reason: Nicotine Cravings Olanzapine (Olanzapine 10 Mg Tablet) 30 mg PO BEDTIME [facility] Last Admin: 05/28/24 20:47 Dose: 30 mg Olanzapine (Olanzapine 5 Mg Tablet) 5 mg PO Q6H PRN PRN Reason: severe anxiety Trazodone HCl (Trazodone Hcl 50 Mg Tablet) 50 mg PO BEDTIME MRX1 PRN PRN Reason: Insomnia Allergies Allergies Allergy/AdvReac Type Severity Reaction Status Date / Time morphine Allergy Rash Verified 05/23/24 09:54 oxycodone Allergy Rash Verified 05/23/24 09:54 Assessment & Plan Assessment & Plan (1) Encephalopathy: Qualifiers: Encephalopathy type: unspecified encephalopathy Qualified Code(s): G93.40 - Encephalopathy, unspecified Status: Acute Code(s): G93.40 - Encephalopathy, unspecified Assessment and Plan: 23 years old man who reported right-sided headache for last few months. He was admitted with 1st episode of psychosis but he also reported that he had been to emergency room and had CT scan of brain done. Apparently that did not reveal any significant abnormality. If his history is correct, an MRI of brain with and without contrast is warranted. (2) Psychosis: Status: Acute Code(s): F29 - Unspecified psychosis not due to a substance or known physiological condition Plan Admit to M3, conditional voluntary, 15 minute checks TSH, B12, Folate, A1C, Lipid Panel Continue Clonidine, Lorazepam prn, Trazodone prn, recent Olanzapine increase Haldol 5 mg bid to target psychotic thought process 05/28: pt refusing haldol. order DCed. reports only feels worse with zyprexa dosing increase. very anxious and tense. agrees to mood stabilizer trial, VPA. also c/o right FERRIS/burning sensation for months, seen by neuro, who recommended MRI. so ordered. 05/29: MRI WNL. slight improvement in anxiety this morning. continue VPA trial. discussed mgmt with pt's mother. Reason for continued inpatient stay Substantial Risk for: harm to self, harm to others and inability to function Time Spent With Patient Time: Total time managing care of this patient today _45___ minutes.
[2024-05-29 20:15] VITALS: BP 120/63; PULSE 75; TEMP 36.4; O2SAT 97
[2024-05-29] MEDS: OLANZapine 10 MG TABLET 30 MG PO (21:09)
[2024-05-29] MEDS: Divalproex Sodium ER 500 MG TAB.ER.24H 1500 MG PO (21:10)
[2024-05-30 07:44] VITALS: BP 130/68; PULSE 74; RESP 14; TEMP 36.8; O2SAT 98
[2024-05-30] MEDS: Nicotine 21 MG PATCH.TD24 TRANSDERMA (08:33)
--- NOTE | 2024-05-30 10:06 | P.PNPSI_ITS ---
Subjective Subjective Date of Service: 05/30/24 Reason For Visit: HI/psychosis Subjective Notes: Conditional Voluntary Interim History: Pt reports congestion and chest tightness. He was started on antihistamine and flonase. He later reported chest pain- ekg normal. He appears somewhat somatically preoccupied. O2sat>98% on room air, no signs of respiratory distress. He denies SI/HI. No behavioral concerns. Review of Systems Review of Systems No recent trauma or seizure-like episode Constitutional: Reports no additional constitutional complaints, Denies chills, Denies fever(s), Reports headache(s) and Denies night sweats Eyes: Reports no additional eye complaints, Denies blurry vision, Denies change in vision, Denies diplopia, Denies eye discharge, Denies loss of vision and Denies eye pain Denies dizziness and Reports headache(s) Cardiovascular: Reports no additional cardiovascular complaints, Denies chest pain, Denies lightheadedness, Denies Loss of Consciousness and Denies dyspnea Respiratory: Reports no additional respiratory complaints and Denies dyspnea Gastrointestinal: Reports no additional gastrointestinal complaints, Denies abdominal pain, Denies melena, Denies hematochezia, Denies change in bowel habits and Denies change in stool character Genitourinary: Reports no additional male genitourinary complaints, Denies hematuria, Denies oliguria, Denies difficulty urinating, Denies dysuria, Denies urinary frequency, Denies urinary hesitancy, Denies urinary incontinence and Denies urinary urgency Musculoskeletal: Reports no additional musculoskeletal complaints, Denies numbness and Denies tingling Denies dizziness, Reports headache(s), Denies loss of vision, Denies numbness and Denies tingling Psychiatric: Reports homicidal ideation Endocrine: Reports no additional endocrine complaints Hematologic/Lymphatic: Reports no additional hematologic/lymphatic complaints Allergic/Immunologic: Reports no additional allergic/immunologic complaints Mental Status Exam Mental Status Exam Patient Appearance: Appropriate Patient Orientation: Person, Place, Time and Situation Level of Consciousness: Restless and Alert Patient Behavior: Talkative, Suspicious, Anxious, Distractible and Good Eye Contact Mood Description: Anxious and Apprehensive Affect Description: Anxious and Apprehensive Patient Cognition Impaired: No Ability to Follow Directions: Good Speech Pattern: Spontaneous Speech Memory Description: Intact Diagnostics Vital Signs (24Hr): Vital Signs - 24 hr 05/29/24 20:15 05/30/24 07:44 Temperature 97.5 F 98.2 F Pulse Rate 75 74 Respiratory Rate 14 Blood Pressure 120/63 130/68 Pulse Oximetry 97 98 Oxygen Delivery Method Room Air Room Air BMI result Body Mass Index 25.7 Labs 05/23/24 10:07 05/23/24 10:07 Imaging Radiology Impressions: ITS Impressions Chest X-Ray 05/24/24 16:15 IMPRESSION: No evidence of acute disease Electronically signed by: Cholo Lopez MD 05/24/2024 04:32 PM EDT RP Brain MRI 05/29/24 11:29 IMPRESSION: Unremarkable contrast enhanced MRI of the brain. Electronically signed by: Misha Spears MD 05/29/2024 12:43 PM EDT RP Medications Medications Current Medications Acetaminophen (Acetaminophen 325 Mg Tablet) 650 mg PO Q6H PRN PRN Reason: Headache/Pain Mild Scale (1-3) Al Hydroxide/Mg Hydroxide (Magnesium Hydrox/Alum Hydrox 30 Ml Oral.Susp) 30 ml PO Q6H PRN PRN Reason: Heartburn/Nausea Albuterol Sulfate (Albuterol Sulfate 90 Mcg 8 Gm Inhaler) 2 puff INHALE RQ4H PRN PRN Reason: Shortness of Breath Benztropine Mesylate (Benztropine Mesylate 0.5 Mg Tablet) 0.5 mg PO BID COUNT [facility]CLUDES [facility] Last Admin: 05/30/24 08:34 Dose: Not Given Clonidine HCl (Clonidine Hcl 0.1 Mg Tablet) 0.1 mg PO QID [facility]; Protocol Last Admin: 05/30/24 08:34 Dose: Not Given Divalproex Sodium (Divalproex Sodium Er 500 Mg Tab.Er.24h) 1,500 mg PO BEDTIME [facility]CLUD[facility] Last Admin: 05/29/24 21:10 Dose: 1,500 mg Hydroxyzine HCl (Hydroxyzine Hcl 25 Mg Tablet) 25 mg PO Q6H PRN PRN Reason: Anxiety Lorazepam (Lorazepam 1 Mg Tablet) 1 mg PO Q4H PRN PRN Reason: severe anxiety Magnesium Hydroxide (Milk Of Magnesia 30 Ml Oral.Susp) 30 ml PO DAILY PRN PRN Reason: Constipation Nicotine (Nicotine 21 Mg Patch.Td24) 21 mg TRANSDERMA DAILY COUNT [facility]CLUDES [facility] Last Admin: 05/30/24 08:33 Dose: 21 mg Nicotine Polacrilex (Nicotine Polacrilex 2 Mg Gum) 4 mg BUCCAL Q2H PRN PRN Reason: Nicotine Cravings Olanzapine (Olanzapine 10 Mg Tablet) 30 mg PO BEDTIME [facility] Last Admin: 05/29/24 21:09 Dose: 30 mg Olanzapine (Olanzapine 5 Mg Tablet) 5 mg PO Q6H PRN PRN Reason: severe anxiety Trazodone HCl (Trazodone Hcl 50 Mg Tablet) 50 mg PO BEDTIME MRX1 PRN PRN Reason: Insomnia Allergies Allergies Allergy/AdvReac Type Severity Reaction Status Date / Time morphine Allergy Rash Verified 05/23/24 09:54 oxycodone Allergy Rash Verified 05/23/24 09:54 Assessment & Plan Assessment & Plan (1) Encephalopathy: Qualifiers: Encephalopathy type: unspecified encephalopathy Qualified Code(s): G 93.40 - Encephalopathy, unspecified Status: Acute Code(s): G93.40 - Encephalopathy, unspecified Assessment and Plan: 23 years old man who reported right-sided headache for last few months. He was admitted with 1st episode of psychosis but he also reported that he had been to emergency room and had CT scan of brain done. Apparently that did not reveal any significant abnormality. If his history is correct, an MRI of brain with and without contrast is warranted. (2) Psychosis: Status: Acute Code(s): F29 - Unspecified psychosis not due to a substance or known physiological condition Plan Admit to M3, conditional voluntary, 15 minute checks TSH, B12, Folate, A1C, Lipid Panel Continue Clonidine, Lorazepam prn, Trazodone prn, recent Olanzapine increase Haldol 5 mg bid to target psychotic thought process 05/28: pt refusing haldol. order DCed. reports only feels worse with zyprexa dosing increase. very anxious and tense. agrees to mood stabilizer trial, VPA. also c/o right FERRIS/burning sensation for months, seen by neuro, who recommended MRI. so ordered. 05/29: MRI WNL. slight improvement in anxiety this morning. continue VPA trial. discussed mgmt with pt's mother. 05/30 continue tx. Reason for continued inpatient stay Substantial Risk for: inability to function Time Spent With Patient Time: Total time managing care of this patient today ____ minutes.
[2024-05-30] MEDS: Loratadine 10 MG TABLET PO (12:50)
[2024-05-30] MEDS: Fluticasone Propionate Nasal 16 GM SPRAY 1 SPRAY NOSTRIL-B (13:44)
[2024-05-30 15:30] VITALS: BP 131/71; PULSE 88; RESP 16; TEMP 36.9; O2SAT 99
--- NOTE | 2024-05-30 15:47 | ECG_ITS ---
Test Reason : c/o mid chest pain Blood Pressure : / mmHG Vent. Rate : 081 BPM Atrial Rate : 081 BPM P-R Int : 162 ms QRS Dur : 100 ms QT Int : 360 ms P-R-T Axes : 044 056 026 degrees QTc Int : 418 ms Normal sinus rhythm Normal ECG When compared with ECG of 25-MAY-2024 10:12, No significant change was found Referred By: Karin Calzada Electronically Signed By:LISA GARRIDO
[2024-05-30] MEDS: Simethicone 80 MG TAB.CHEW PO (17:01)
[2024-05-30 21:20] VITALS: RESP 18
[2024-05-30] MEDS: Divalproex Sodium ER 500 MG TAB.ER.24H 1500 MG PO (21:22)
[2024-05-30] MEDS: OLANZapine 10 MG TABLET 30 MG PO (21:22)
[2024-05-31 08:28] VITALS: BP 133/67; PULSE 77; RESP 18; TEMP 36.8; O2SAT 98
[2024-05-31] MEDS: Nicotine 21 MG PATCH.TD24 TRANSDERMA (08:32)
[2024-05-31] MEDS: Loratadine 10 MG TABLET PO (08:33)
[2024-05-31] MEDS: Simethicone 80 MG TAB.CHEW PO (10:34)
[2024-05-31] MEDS: Albuterol Sulfate 90 MCG 8 GM INHALER 2 PUFF INHALE (10:47)
[2024-05-31] MEDS: OLANZapine 5 MG TABLET PO (10:58)
--- NOTE | 2024-05-31 12:03 | HO.PSYCHPN ---
Subjective Subjective Date of Service: 05/31/24 Reason For Visit: HI/psychosis Interim History: Pt reports congestion and chest tightness. He was started on antihistamine and flonase. He later reported chest pain- ekg normal. He appears somewhat somatically preoccupied. O2sat>98% on room air, no signs of respiratory distress. He denies SI/HI. No behavioral concerns. Review of Systems Review of Systems No recent trauma or seizure-like episode Constitutional: Reports no additional constitutional complaints, Denies chills, Denies fever(s), Reports headache(s) and Denies night sweats Eyes: Reports no additional eye complaints, Denies blurry vision, Denies change in vision, Denies diplopia, Denies eye discharge, Denies loss of vision and Denies eye pain Denies dizziness and Reports headache(s) Cardiovascular: Reports no additional cardiovascular complaints, Denies chest pain, Denies lightheadedness, Denies Loss of Consciousness and Denies dyspnea Respiratory: Reports no additional respiratory complaints and Denies dyspnea Gastrointestinal: Reports no additional gastrointestinal complaints, Denies abdominal pain, Denies melena, Denies hematochezia, Denies change in bowel habits and Denies change in stool character Genitourinary: Reports no additional male genitourinary complaints, Denies hematuria, Denies oliguria, Denies difficulty urinating, Denies dysuria, Denies urinary frequency, Denies urinary hesitancy, Denies urinary incontinence and Denies urinary urgency Musculoskeletal: Reports no additional musculoskeletal complaints, Denies numbness and Denies tingling Denies dizziness, Reports headache(s), Denies loss of vision, Denies numbness and Denies tingling Psychiatric: Reports homicidal ideation Endocrine: Reports no additional endocrine complaints Hematologic/Lymphatic: Reports no additional hematologic/lymphatic complaints Allergic/Immunologic: Reports no additional allergic/immunologic complaints Mental Status Exam Mental Status Exam Patient Appearance: Appropriate Patient Orientation: Person, Place, Time and Situation Level of Consciousness: Restless and Alert Patient Behavior: Talkative, Suspicious, Anxious, Distractible and Good Eye Contact Mood Description: Anxious and Apprehensive Affect Description: Anxious and Apprehensive Patient Cognition Impaired: No Ability to Follow Directions: Good Speech Pattern: Spontaneous Speech Memory Description: Intact Diagnostics Vital Signs (24Hr): Vital Signs - 24 hr 05/30/24 15:30 05/30/24 21:20 05/31/24 08:28 Temperature 98.4 F 98.2 F Pulse Rate 88 77 Respiratory Rate 16 18 18 Blood Pressure 131/71 133/67 Pulse Oximetry 99 98 Oxygen Delivery Method Room Air Nasal Cannula with ETCO2 Room Air BMI result Body Mass Index 25.7 Labs 05/23/24 10:07 05/23/24 10:07 Imaging Radiology Impressions: ITS Impressions Chest X-Ray 05/24/24 16:15 IMPRESSION: No evidence of acute disease Electronically signed by: Cholo Lopez MD 05/24/2024 04:32 PM EDT RP Brain MRI 05/29/24 11:29 IMPRESSION: Unremarkable contrast enhanced MRI of the brain. Electronically signed by: Misha Spears MD 05/29/2024 12:43 PM EDT RP Medications Medications Current Medications Acetaminophen (Acetaminophen 325 Mg Tablet) 650 mg PO Q6H PRN PRN Reason: Headache/Pain Mild Scale (1-3) Al Hydroxide/Mg Hydroxide (Magnesium Hydrox/Alum Hydrox 30 Ml Oral.Susp) 30 ml PO Q6H PRN PRN Reason: Heartburn/Nausea Albuterol Sulfate (Albuterol Sulfate 90 Mcg 8 Gm Inhaler) 2 puff INHALE RQ4H PRN PRN Reason: Shortness of Breath Last Admin: 05/31/24 10:47 Dose: 2 puff Benztropine Mesylate (Benztropine Mesylate 0.5 Mg Tablet) 0.5 mg PO BID [facility] Last Admin: 05/31/24 08:35 Dose: Not Given Clonidine HCl (Clonidine Hcl 0.1 Mg Tablet) 0.1 mg PO QID [facility]; Protocol Last Admin: 05/31/24 08:36 Dose: Not Given Divalproex Sodium (Divalproex Sodium Er 500 Mg Tab.Er.24h) 1,500 mg PO BEDTIME [facility] Last Admin: 05/30/24 21:22 Dose: 1,500 mg Fluticasone Propionate (Fluticasone Propionate Nasal 16 Gm [place]) 1 spray NOSTRIL-B DAILY [facility] Last Admin: 05/31/24 08:36 Dose: Not Given Hydroxyzine HCl (Hydroxyzine Hcl 25 Mg Tablet) 25 mg PO Q6H PRN PRN Reason: Anxiety Loratadine (Loratadine 10 Mg Tablet) 10 mg PO DAILY [facility] Last Admin: 05/31/24 08:33 Dose: 10 mg Lorazepam (Lorazepam 1 Mg Tablet) 1 mg PO Q4H PRN PRN Reason: severe anxiety Magnesium Hydroxide (Milk Of Magnesia 30 Ml Oral.Susp) 30 ml PO DAILY PRN PRN Reason: Constipation Nicotine (Nicotine 21 Mg Patch.Td24) 21 mg TRANSDERMA DAILY [facility] Last Admin: 05/31/24 08:32 Dose: 21 mg Nicotine Polacrilex (Nicotine Polacrilex 2 Mg Gum) 4 mg BUCCAL Q2H PRN PRN Reason: Nicotine Cravings Olanzapine (Olanzapine 10 Mg Tablet) 30 mg PO BEDTIME [facility] Last Admin: 05/30/24 21:22 Dose: 30 mg Olanzapine (Olanzapine 5 Mg Tablet) 5 mg PO Q6H PRN PRN Reason: severe anxiety Last Admin: 05/31/24 10:58 Dose: 5 mg Simethicone (Simethicone 80 Mg Tab.Chew) 80 mg PO QIDWMHS PRN PRN Reason: Gas Last Admin: 05/31/24 10:34 Dose: 80 mg Trazodone HCl (Trazodone Hcl 50 Mg Tablet) 50 mg PO BEDTIME MRX1 PRN PRN Reason: Insomnia Allergies Allergies Allergy/AdvReac Type Severity Reaction Status Date / Time morphine Allergy Rash Verified 05/23/24 09:54 oxycodone Allergy Rash Verified 05/23/24 09:54 Assessment & Plan Assessment & Plan (1) Encephalopathy: Qualifiers: Encephalopathy type: unspecified encephalopathy Qualified Code(s): G93.40 - Encephalopathy, unspecified Status: Acute Code(s): G93.40 - Encephalopathy, unspecified Assessment and Plan: 23 years old man who reported right-sided headache for last few months. He was admitted with 1st episode of psychosis but he also reported that he had been to emergency room and had CT scan of brain done. Apparently that did not reveal any significant abnormality. If his history is correct, an MRI of brain with and without contrast is warranted. (2) Psychosis: Status: Acute Code(s): F29 - Unspecified psychosis not due to a substance or known physiological condition Plan Admit to M3, conditional voluntary, 15 minute checks TSH, B12, Folate, A1C, Lipid Panel Continue Clonidine, Lorazepam prn, Trazodone prn, recent Olanzapine increase Haldol 5 mg bid to target psychotic thought process 05/28: pt refusing haldol. order DCed. reports only feels worse with zyprexa dosing increase. very anxious and tense. agrees to mood stabilizer trial, VPA. also c/o right FERRIS/burning sensation for months, seen by neuro, who recommended MRI. so ordered. 05/29: MRI WNL. slight improvement in anxiety this morning. continue VPA trial. discussed mgmt with pt's mother. 05/30 continue tx. 05/31 continue tx. Reason for continued inpatient stay Substantial Risk for: inability to function Time Spent With Patient Time: Total time managing care of this patient today ____ minutes.
[2024-05-31 19:40] VITALS: BP 127/77; PULSE 94; RESP 18; TEMP 36.2; O2SAT 97
[2024-05-31] MEDS: LORazepam 1 MG TABLET PO (19:53)
[2024-05-31] MEDS: Divalproex Sodium ER 500 MG TAB.ER.24H 1500 MG PO (19:53)
[2024-05-31] MEDS: OLANZapine 10 MG TABLET 30 MG PO (19:53)
[2024-06-01] MEDS: Nicotine 21 MG PATCH.TD24 TRANSDERMA (08:37)
[2024-06-01] MEDS: Albuterol Sulfate 90 MCG 8 GM INHALER 2 PUFF INHALE (08:38)
[2024-06-01 08:43] VITALS: RESP 16
[2024-06-01 10:29] VITALS: BP 120/69; PULSE 94; RESP 16; TEMP 36.9; O2SAT 98
--- NOTE | 2024-06-01 14:32 | P.PNPSI_ITS ---
Subjective Subjective Date of Service: 06/01/24 Reason For Visit: HI/psychosis Interim History: calm, cooperative. divulges he hears voices that tell him they are telepathically speaking to him, but he does not believe them. also reports experiencing non-stop imagery in his head throughout the day. discuss mood stabilizer versus antipsychotic. acknowledge zyprexa does not appear to be doing adequately. pt would like to re-try seroquel. will cross-taper. per staff, withdrawn, guarded. refusing cogentin, clonidine. c/o chest tightness. disorganized thoughts. slept about 7 hours. Mental Status Exam Mental Status Exam Narrative: adequately dressed and groomed. cooperative. no PMA/PMR. speech nml rate, amount, loudness, latency. flattened tone. thoughts linear and logical. affect flat. mood anxious. no SI/HI/VH expressed. +AH. Diagnostics Vital Signs (24Hr): Vital Signs - 24 hr 05/31/24 19:40 06/01/24 08:43 06/01/24 10:29 Temperature 97.2 F 98.4 F Pulse Rate 94 94 Respiratory Rate 18 16 16 Blood Pressure 127/77 120/69 Pulse Oximetry 97 98 Oxygen Delivery Method Room Air Room Air BMI result Body Mass Index 25.7 Labs 05/23/24 10:07 05/23/24 10:07 Imaging Radiology Impressions: ITS Impressions Chest X-Ray 05/24/24 16:15 IMPRESSION: No evidence of acute disease Electronically signed by: Cholo Lopez MD 05/24/2024 04:32 PM EDT RP Brain MRI 05/29/24 11:29 IMPRESSION: Unremarkable contrast enhanced MRI of the brain. Electronically signed by: Misha Spears MD 05/29/2024 12:43 PM EDT RP Medications Medications Current Medications Acetaminophen (Acetaminophen 325 Mg Tablet) 650 mg PO Q6H PRN PRN Reason: Headache/Pain Mild Scale (1-3) Al Hydroxide/Mg Hydroxide (Magnesium Hydrox/Alum Hydrox 30 Ml Oral.Susp) 30 ml PO Q6H PRN PRN Reason: Heartburn/Nausea Albuterol Sulfate (Albuterol Sulfate 90 Mcg 8 Gm Inhaler) 2 puff INHALE RQ4H PRN PRN Reason: Shortness of Breath Last Admin: 06/01/24 08:38 Dose: 2 puff Benztropine Mesylate (Benztropine Mesylate 0.5 Mg Tablet) 0.5 mg PO BID [facility] Last Admin: 06/01/24 08:41 Dose: Not Given Clonidine HCl (Clonidine Hcl 0.1 Mg Tablet) 0.1 mg PO QID [facility]; Protocol Last Admin: 06/01/24 13:00 Dose: Not Given Divalproex Sodium (Divalproex Sodium Er 500 Mg Tab.Er.24h) 1,500 mg PO BEDTIME [facility] Last Admin: 05/31/24 19:53 Dose: 1,500 mg Fluticasone Propionate (Fluticasone Propionate Nasal 16 Gm [place]) 1 spray NOSTRIL-B DAILY [facility] Last Admin: 06/01/24 08:42 Dose: Not Given Hydroxyzine HCl (Hydroxyzine Hcl 25 Mg Tablet) 25 mg PO Q6H PRN PRN Reason: Anxiety Loratadine (Loratadine 10 Mg Tablet) 10 mg PO DAILY [facility] Last Admin: 06/01/24 08:42 Dose: Not Given Lorazepam (Lorazepam 1 Mg Tablet) 1 mg PO Q4H PRN PRN Reason: severe anxiety Last Admin: 05/31/24 19:53 Dose: 1 mg Magnesium Hydroxide (Milk Of Magnesia 30 Ml Oral.Susp) 30 ml PO DAILY PRN PRN Reason: Constipation Nicotine (Nicotine 21 Mg Patch.Td24) 21 mg TRANSDERMA DAILY [facility] Last Admin: 06/01/24 08:37 Dose: 21 mg Nicotine Polacrilex (Nicotine Polacrilex 2 Mg Gum) 4 mg BUCCAL Q2H PRN PRN Reason: Nicotine Cravings Olanzapine (Olanzapine 5 Mg Tablet) 5 mg PO Q6H PRN PRN Reason: severe anxiety Last Admin: 05/31/24 10:58 Dose: 5 mg Olanzapine (Olanzapine 7.5 Mg Tablet) 15 mg PO BEDTIME [facility] Quetiapine Fumarate (Quetiapine Fumarate 300 Mg Tablet) 300 mg PO BEDTIME [facility] Simethicone (Simethicone 80 Mg Tab.Chew) 80 mg PO QIDWMHS PRN PRN Reason: Gas Last Admin: 05/31/24 10:34 Dose: 80 mg Trazodone HCl (Trazodone Hcl 50 Mg Tablet) 50 mg PO BEDTIME MRX1 PRN PRN Reason: Insomnia Allergies Allergies Allergy/AdvReac Type Severity Reaction Status Date / Time morphine Allergy Rash Verified 05/23/24 09:54 oxycodone Allergy Rash Verified 05/23/24 09:54 Assessment & Plan Assessment & Plan (1) Encephalopathy: Qualifiers: Encephalopathy type: unspecified encephalopathy Qualified Code(s): G 93.40 - Encephalopathy, unspecified Status: Acute Code(s): G93.40 - Encephalopathy, unspecified Assessment and Plan: 23 years old man who reported right-sided headache for last few months. He was admitted with 1st episode of psychosis but he also reported that he had been to emergency room and had CT scan of brain done. Apparently that did not reveal any significant abnormality. If his history is correct, an MRI of brain with and without contrast is warranted. (2) Psychosis: Status: Acute Code(s): F29 - Unspecified psychosis not due to a substance or known physiological condition Plan Admit to M3, conditional voluntary, 15 minute checks TSH, B12, Folate, A1C, Lipid Panel Continue Clonidine, Lorazepam prn, Trazodone prn, recent Olanzapine increase Haldol 5 mg bid to target psychotic thought process 05/28: pt refusing haldol. order DCed. reports only feels worse with zyprexa dosing increase. very anxious and tense. agrees to mood stabilizer trial, VPA. also c/o right FERRIS/burning sensation for months, seen by neuro, who recommended MRI. so ordered. 05/29: MRI WNL. slight improvement in anxiety this morning. continue VPA trial. discussed mgmt with pt's mother. 05/30 continue tx. 05/31 continue tx. 06/01: taper zyprexa, titrate seroquel per pt preference. zyprexa to 15 mg tonight, start seroquel at 300 QHS tonight. labs weds ford - VPA. reporting hearing voices telling him they are telepathically communicating with him, but he does not believe it. also reporting non-stop imagery in his head all day. Reason for continued inpatient stay Substantial Risk for: harm to self and inability to function Time Spent With Patient Time: Total time managing care of this patient today __35__ minutes.
[2024-06-01 20:00] VITALS: BP 132/71; PULSE 100; RESP 16; TEMP 37.2; O2SAT 97
[2024-06-01] MEDS: Divalproex Sodium ER 500 MG TAB.ER.24H 1500 MG PO (20:23)
[2024-06-01] MEDS: OLANZapine 7.5 MG TABLET 15 MG PO (20:23)
[2024-06-01] MEDS: QUEtiapine Fumarate 300 MG TABLET PO (20:23)
[2024-06-02 08:00] VITALS: BP 132/73; PULSE 83; RESP 16; TEMP 36.9; O2SAT 96
[2024-06-02] MEDS: Loratadine 10 MG TABLET PO (08:28)
[2024-06-02] MEDS: Nicotine 21 MG PATCH.TD24 TRANSDERMA (08:29)
[2024-06-02] MEDS: Albuterol Sulfate 90 MCG 8 GM INHALER 2 PUFF INHALE (08:30)
[2024-06-02] MEDS: Lithium Carbonate ER 300 MG TABLET.ER 600 MG PO ×2 (11:13→20:12)
[2024-06-02] MEDS: LORazepam 1 MG TABLET PO (11:13)
--- NOTE | 2024-06-02 15:36 | P.PNPSI_ITS ---
Subjective Subjective Date of Service: 06/02/24 Reason For Visit: HI/psychosis Interim History: calm, cooperative. continues to feel very uncomfortable. does not want clonidine, cogentin, or fluticasone. he would like loratadine. agreeable to continue to titrate seroquel up but leaving zyprexa where it is due to some difficulty sleeping last night. discuss checking VPA level tomorrow night and possibility of adding lithium to the mix in the future, pt insists he would like to add lithium now. per staff, feels meds are not working. racing thoughts. Mental Status Exam Mental Status Exam Narrative: adequately dressed and groomed. cooperative. no PMA/PMR. speech nml rate, amount, loudness, latency. flattened tone. thoughts linear and logical. affect flat. mood anxious. no SI/HI/VH expressed. +AH. Diagnostics Vital Signs (24Hr): Vital Signs - 24 hr 06/01/24 20:00 06/02/24 08:00 Temperature 99 F 98.4 F Pulse Rate 100 83 Respiratory Rate 16 16 Blood Pressure 132/71 132/73 Pulse Oximetry 97 96 Oxygen Delivery Method Room Air Room Air BMI result Body Mass Index 25.7 Labs 05/23/24 10:07 05/23/24 10:07 Imaging Radiology Impressions: ITS Impressions Chest X-Ray 05/24/24 16:15 IMPRESSION: No evidence of acute disease Electronically signed by: Cholo Lopez MD 05/24/2024 04:32 PM EDT Brain MRI 05/29/24 11:29 IMPRESSION: Unremarkable contrast enhanced MRI of the brain. Electronically signed by: Misha Spears MD 05/29/2024 12:43 PM EDT Medications Medications Current Medications Acetaminophen (Acetaminophen 325 Mg Tablet) 650 mg PO Q6H PRN PRN Reason: Headache/Pain Mild Scale (1-3) Al Hydroxide/Mg Hydroxide (Magnesium Hydrox/Alum Hydrox 30 Ml Oral.Susp) 30 ml PO Q6H PRN PRN Reason: Heartburn/Nausea Albuterol Sulfate (Albuterol Sulfate 90 Mcg 8 Gm Inhaler) 2 puff INHALE RQ4H PRN PRN Reason: Shortness of Breath Last Admin: 06/02/24 08:30 Dose: 2 puff Divalproex Sodium (Divalproex Sodium Er 500 Mg Tab.Er.24h) 1,500 mg PO BEDTIME [facility] Last Admin: 06/01/24 20:23 Dose: 1,500 mg Hydroxyzine HCl (Hydroxyzine Hcl 25 Mg Tablet) 25 mg PO Q6H PRN PRN Reason: Anxiety [place] Carbonate ([place] Carbonate Er 300 Mg Tablet.Er) 600 mg PO BID [facility] Last Admin: 06/02/24 11:13 Dose: 600 mg Loratadine (Loratadine 10 Mg Tablet) 10 mg PO DAILY [facility] Last Admin: 06/02/24 08:28 Dose: 10 mg Lorazepam (Lorazepam 1 Mg Tablet) 1 mg PO Q4H PRN PRN Reason: severe anxiety Last Admin: 06/02/24 11:13 Dose: 1 mg Magnesium Hydroxide (Milk Of Magnesia 30 Ml Oral.Susp) 30 ml PO DAILY PRN PRN Reason: Constipation Nicotine (Nicotine 21 Mg Patch.Td24) 21 mg TRANSDERMA DAILY [facility] Last Admin: 06/02/24 08:29 Dose: 21 mg Nicotine Polacrilex (Nicotine Polacrilex 2 Mg Gum) 4 mg BUCCAL Q2H PRN PRN Reason: Nicotine Cravings Olanzapine (Olanzapine 5 Mg Tablet) 5 mg PO Q6H PRN PRN Reason: severe anxiety Last Admin: 05/31/24 10:58 Dose: 5 mg Olanzapine (Olanzapine 7.5 Mg Tablet) 15 mg PO BEDTIME [facility] Last Admin: 06/01/24 20:23 Dose: 15 mg Quetiapine Fumarate (Quetiapine Fumarate 300 Mg Tablet) 600 mg PO BEDTIME [facility] Simethicone (Simethicone 80 Mg Tab.Chew) 80 mg PO QIDWMHS PRN PRN Reason: Gas Last Admin: 05/31/24 10:34 Dose: 80 mg Trazodone HCl (Trazodone Hcl 50 Mg Tablet) 50 mg PO BEDTIME MRX1 PRN PRN Reason: Insomnia Allergies Allergies Allergy/AdvReac Type Severity Reaction Status Date / Time morphine Allergy Rash Verified 05/23/24 09:54 oxycodone Allergy Rash Verified 05/23/24 09:54 Assessment & Plan Assessment & Plan (1) Encephalopathy: Qualifiers: Encephalopathy type: unspecified encephalopathy Qualified Code(s): G 93.40 - Encephalopathy, unspecified Status: Acute Code(s): G93.40 - Encephalopathy, unspecified Assessment and Plan: 23 years old man who reported right-sided headache for last few months. He was admitted with 1st episode of psychosis but he also reported that he had been to emergency room and had CT scan of brain done. Apparently that did not reveal any significant abnormality. If his history is correct, an MRI of brain with and without contrast is warranted. (2) Psychosis: Status: Acute Code(s): F29 - Unspecified psychosis not due to a substance or known physiological condition Plan Admit to M3, conditional voluntary, 15 minute checks TSH, B12, Folate, A1C, Lipid Panel Continue Clonidine, Lorazepam prn, Trazodone prn, recent Olanzapine increase Haldol 5 mg bid to target psychotic thought process 05/28: pt refusing haldol. order DCed. reports only feels worse with zyprexa dosing increase. very anxious and tense. agrees to mood stabilizer trial, VPA. also c/o right FERRIS/burning sensation for months, seen by neuro, who recommended MRI. so ordered. 05/29: MRI WNL. slight improvement in anxiety this morning. continue VPA trial. discussed mgmt with pt's mother. 05/30 continue tx. 05/31 continue tx. 06/01: taper zyprexa, titrate seroquel per pt preference. zyprexa to 15 mg tonight, start seroquel at 300 QHS tonight. labs weds for[facility] - VPA. reporting hearing voices telling him they are telepathically communicating with him, but he does not believe it. also reporting non-stop imagery in his head all day. 06/02: poor sleep overnight. keep zyprexa at 15 and increase seroquel to 600. per pt's strong request, start lithium immediately, at 600 BID. check VPA- related labs tomorrow night. remains feeling very uncomfortable. Reason for continued inpatient stay Substantial Risk for: harm to self and inability to function Time Spent With Patient Time: Total time managing care of this patient today __25__ minutes.
[2024-06-02 20:10] VITALS: BP 132/73; PULSE 83; RESP 16; TEMP 36.9; O2SAT 96
[2024-06-02] MEDS: OLANZapine 7.5 MG TABLET 15 MG PO (20:12)
[2024-06-02] MEDS: QUEtiapine Fumarate 300 MG TABLET 600 MG PO (20:13)
[2024-06-02] MEDS: Divalproex Sodium ER 500 MG TAB.ER.24H 1500 MG PO (20:13)
[2024-06-03] MEDS: Loratadine 10 MG TABLET PO (09:08)
[2024-06-03] MEDS: Lithium Carbonate ER 300 MG TABLET.ER 600 MG PO ×2 (09:08→20:44)
[2024-06-03] MEDS: Nicotine 21 MG PATCH.TD24 TRANSDERMA (09:09)
--- NOTE | 2024-06-03 15:54 | HO.PSYCHPN ---
Subjective Subjective Date of Service: 06/03/24 Reason For Visit: HI/psychosis Interim History: feeling sedated from meds overnight, but denies any symptom improvement. agreeable to DC zyprexa now. reminded of labs tonight. per staff, anx 5. +RIS. + meds. isolative. in bed. visits with mother. pleasant, cooperative. slept through the night. Mental Status Exam Mental Status Exam Narrative: adequately dressed and groomed. cooperative. no PMA/PMR. speech nml rate, amount, loudness, latency. flattened tone. thoughts linear and logical. affect flat. mood anxious. no SI/HI/VH expressed. +AH. Diagnostics Vital Signs (24Hr): Vital Signs - 24 hr 06/02/24 20:10 Temperature 98.4 F Pulse Rate 83 Respiratory Rate 16 Blood Pressure 132/73 Pulse Oximetry 96 Oxygen Delivery Method Room Air BMI result Body Mass Index 25.7 Labs 05/23/24 10:07 05/23/24 10:07 Imaging Radiology Impressions: ITS Impressions Chest X-Ray 05/24/24 16:15 IMPRESSION: No evidence of acute disease Electronically signed by: Cholo Lopez MD 05/24/2024 04:32 PM EDT RP Brain MRI 05/29/24 11:29 IMPRESSION: Unremarkable contrast enhanced MRI of the brain. Electronically signed by: Misha Spears MD 05/29/2024 12:43 PM EDT RP Medications Medications Current Medications Acetaminophen (Acetaminophen 325 Mg Tablet) 650 mg PO Q6H PRN PRN Reason: Headache/Pain Mild Scale (1-3) Al Hydroxide/Mg Hydroxide (Magnesium Hydrox/Alum Hydrox 30 Ml Oral.Susp) 30 ml PO Q6H PRN PRN Reason: Heartburn/Nausea Albuterol Sulfate (Albuterol Sulfate 90 Mcg 8 Gm Inhaler) 2 puff INHALE RQ4H PRN PRN Reason: Shortness of Breath Last Admin: 06/02/24 08:30 Dose: 2 puff Calcium Carbonate (Calcium Carbonate 750 Mg Tab.Chew) 750 mg PO Q6H PRN PRN Reason: Heartburn Divalproex Sodium (Divalproex Sodium Er 500 Mg Tab.Er.24h) 1,500 mg PO BEDTIME [facility] Last Admin: 06/02/24 20:13 Dose: 1,500 mg Hydroxyzine HCl (Hydroxyzine Hcl 25 Mg Tablet) 25 mg PO Q6H PRN PRN Reason: Anxiety [place] Carbonate ([place] Carbonate Er 300 Mg Tablet.Er) 600 mg PO BID [facility] Last Admin: 06/03/24 09:08 Dose: 600 mg Loratadine (Loratadine 10 Mg Tablet) 10 mg PO DAILY [facility] Last Admin: 06/03/24 09:08 Dose: 10 mg Lorazepam (Lorazepam 1 Mg Tablet) 1 mg PO Q4H PRN PRN Reason: severe anxiety Last Admin: 06/02/24 11:13 Dose: 1 mg Magnesium Hydroxide (Milk Of Magnesia 30 Ml Oral.Susp) 30 ml PO DAILY PRN PRN Reason: Constipation Nicotine (Nicotine 21 Mg Patch.Td24) 21 mg TRANSDERMA DAILY [facility] Last Admin: 06/03/24 09:09 Dose: 21 mg Nicotine Polacrilex (Nicotine Polacrilex 2 Mg Gum) 4 mg BUCCAL Q2H PRN PRN Reason: Nicotine Cravings Olanzapine (Olanzapine 5 Mg Tablet) 5 mg PO Q6H PRN PRN Reason: severe anxiety Last Admin: 05/31/24 10:58 Dose: 5 mg Olanzapine (Olanzapine 7.5 Mg Tablet) 15 mg PO BEDTIME [facility] Last Admin: 06/02/24 20:12 Dose: 15 mg Quetiapine Fumarate (Quetiapine Fumarate 300 Mg Tablet) 600 mg PO BEDTIME [facility] Last Admin: 06/02/24 20:13 Dose: 600 mg Simethicone (Simethicone 80 Mg Tab.Chew) 80 mg PO QIDWMHS PRN PRN Reason: Gas Last Admin: 05/31/24 10:34 Dose: 80 mg Trazodone HCl (Trazodone Hcl 50 Mg Tablet) 50 mg PO BEDTIME MRX1 PRN PRN Reason: Insomnia Allergies Allergies Allergy/AdvReac Type Severity Reaction Status Date / Time morphine Allergy Rash Verified 05/23/24 09:54 oxycodone Allergy Rash Verified 05/23/24 09:54 Assessment & Plan Assessment & Plan (1) Encephalopathy: Qualifiers: Encephalopathy type: unspecified encephalopathy Qualified Code(s): G93.40 - Encephalopathy, unspecified Status: Acute Code(s): G93.40 - Encephalopathy, unspecified Assessment and Plan: 23 years old man who reported right-sided headache for last few months. He was admitted with 1st episode of psychosis but he also reported that he had been to emergency room and had CT scan of brain done. Apparently that did not reveal any significant abnormality. If his history is correct, an MRI of brain with and without contrast is warranted. (2) Psychosis: Status: Acute Code(s): F29 - Unspecified psychosis not due to a substance or known physiological condition Plan Admit to M3, conditional voluntary, 15 minute checks TSH, B12, Folate, A1C, Lipid Panel Continue Clonidine, Lorazepam prn, Trazodone prn, recent Olanzapine increase Haldol 5 mg bid to target psychotic thought process 05/28: pt refusing haldol. order DCed. reports only feels worse with zyprexa dosing increase. very anxious and tense. agrees to mood stabilizer trial, VPA. also c/o right FERRIS/burning sensation for months, seen by neuro, who recommended MRI. so ordered. 05/29: MRI WNL. slight improvement in anxiety this morning. continue VPA trial. discussed mgmt with pt's mother. 05/30 continue tx. 05/31 continue tx. 06/01: taper zyprexa, titrate seroquel per pt preference. zyprexa to 15 mg tonight, start seroquel at 300 QHS tonight. labs weds [facility] - VPA. reporting hearing voices telling him they are telepathically communicating with him, but he does not believe it. also reporting non-stop imagery in his head all day. 06/02: poor sleep overnight. keep zyprexa at 15 and increase seroquel to 600. per pt's strong request, start lithium immediately, at 600 BID. check VPA-related labs tomorrow night. remains feeling very uncomfortable. 06/03: DC zyprexa as pt sedated this morning. continue meds otherwise. check labs tonight. Reason for continued inpatient stay Substantial Risk for: harm to self, inability to function and rapid decompensation Time Spent With Patient Time: Total time managing care of this patient today __25__ minutes.
[2024-06-03 19:50] VITALS: BP 136/89; PULSE 97; RESP 16; TEMP 36.7; O2SAT 99
[2024-06-03 20:44] LABS: MANUAL DIFF FLAG NO
[2024-06-03] MEDS: Divalproex Sodium ER 500 MG TAB.ER.24H 1500 MG PO (20:44)
[2024-06-03] MEDS: QUEtiapine Fumarate 300 MG TABLET 600 MG PO (20:44)
[2024-06-03 20:46] LABS: Basophils Percent Auto 0.5 % (0-2); Eosinophils Absolute Auto 0.2 X10*3/uL (0.0-0.4); Hematocrit 49.1 % (42.0-52.0); Hemoglobin 16.7 g/dl (14.0-18.0); Imm Gran Abs Auto 0.01 X10*3/uL (0.00-0.03); Imm Gran Pct Auto 0.2 % (0.0-0.4); Lymphocytes Absolute Auto 1.7 X10*3/uL (1.2-4.9); Lymphocytes Percent Auto 29.8 % (20-40); Mean Corpuscular Hemoglobin 28.4 pg (27.0-33.0); Mean Corpuscular Volume 83.5 fL (80.0-98.0); Mean Platelet Volume 8.1 fL (9.4-12.4); Monocytes Absolute Auto 0.5 X10*3/uL (0.1-1.2); Monocytes Percent Auto 8.2 % (2-11); Neutrophils Absolute Auto 3.3 x10*3/uL (2.0-8.3); Neutrophils Percent Auto 58.3 % (45-73); Platelet Count 245 X10*3/uL (160-400); Red Blood Count 5.88 X10*6/uL (4.60-5.80); Red Cell Distribution Width 13.2 % (11.0-16.0); White Blood Count 5.7 X10*3/uL (4.8-10.8)
[2024-06-03 20:59] LABS: Ammonia 46 umol/L (13-55)
[2024-06-03 21:06] LABS: Alanine Aminotransferase 24 U/L (0-40); Albumin Level 4.6 g/dL (3.5-5.0); Alkaline Phosphatase 37 U/L (39-117); Aspartate Amino Transferase 17 U/L (5-37); Bilirubin Direct 0.2 mg/dL (0.0-0.5); Bilirubin Total 0.7 mg/dL (0.0-1.0)
[2024-06-03 21:29] LABS: Cholesterol 153 mg/dL (<200); HDL Cholesterol 44 mg/dL (>40); LDL Cholesterol Calculated 101 mg/dL (<100); Triglycerides 41 mg/dL (<150)
[2024-06-03 21:40] LABS: Folate 12.1 ng/mL (> or = 4.0); Vitamin B12 482 pg/mL (200-900)
[2024-06-03 21:44] LABS: Free T4 (Free Thyroxine) 1.18 ng/dL (0.71-1.85); Thyroid Stimulating Hormone 4.74 uIU/mL (0.32-4.0)
[2024-06-04 06:57] LABS: Estimated Average Glucose 108 mg/dL; Hemoglobin A1C 142.7101 umol/L; Hemoglobin A1c % 5.4 % (<6.0); Total Hemoglobin (HGBA1C) 4039.2588 umol/L
[2024-06-04 08:00] VITALS: RESP 18
[2024-06-04] MEDS: Lithium Carbonate ER 300 MG TABLET.ER 600 MG PO ×2 (09:18→20:18)
[2024-06-04] MEDS: Loratadine 10 MG TABLET PO (09:19)
[2024-06-04] MEDS: Nicotine 21 MG PATCH.TD24 TRANSDERMA (09:19)
--- NOTE | 2024-06-04 13:14 | HO.PSYCHPN ---
Subjective Subjective Date of Service: 06/04/24 Reason For Visit: HI/psychosis Interim History: calm, cooperative. states he is not feeling better than at admission. does report he is no longer having intrusive thoughts about harming others, he is no longer having non-stop imagery in his mind, and he is no longer hearing voices telling him they are telepathically communicating with him. he reports he feels sedated, heavy, and slow, and that he feels like he is going to . agreeable to continue lithium, decr VPA to 1250, decrease seroquel to 500 mg at HS. per staff, flat, withdrawn, guarded. isolative. brighter. more visible eves. VP_A 95. slept 8 hours. Mental Status Exam Mental Status Exam Narrative: adequately dressed and groomed. cooperative. no PMA/PMR. speech nml rate, amount, loudness, latency. flattened tone. thoughts linear and logical. affect flat. mood anxious. no SI/HI/VH expressed. denies AH. Diagnostics Vital Signs (24Hr): Vital Signs - 24 hr 06/03/24 19:50 Temperature 98.1 F Pulse Rate 97 Respiratory Rate 16 Blood Pressure 136/89 Pulse Oximetry 99 Oxygen Delivery Method Room Air BMI result Body Mass Index 25.7 Labs 06/03/24 20:38 05/23/24 10:07 Labs: Laboratory Results - last 48 hr 06/03/24 06/03/24 20:37 20:38 WBC 5.7 RBC 5.88 H Hgb 16.7 Hct 49.1 MCV 83.5 MCH 28.4 MCHC 34.0 RDW 13.2 Plt Count 245 MPV 8.1 L Immature Gran % (Auto) 0.2 Neut % (Auto) 58.3 Lymph % (Auto) 29.8 [place] % (Auto) 8.2 Eos % (Auto) 3.0 Baso % (Auto) 0.5 Lymph # (Auto) 1.7 [place] # (Auto) 0.5 Eos # (Auto) 0.2 Baso # (Auto) 0.0 Abs Immat Gran (auto) 0.01 Absolute Neuts (auto) 3.3 Absolute Nucleated RBC 0.000 Nucleated RBC % (auto) 0.0 Estimat Average Glucose 108 Hemoglobin A1c % 5.4 Total Bilirubin 0.7 Direct Bilirubin 0.2 AST 17 ALT 24 Alkaline Phosphatase 37 L Ammonia 46 Total Protein 8.0 Albumin 4.6 Triglycerides 41 Cholesterol 153 LDL Cholesterol, Calc 101 H HDL Cholesterol 44 Vitamin B12 482 Folate 12.1 TSH 4.74 H Free T4 1.18 Valproic Acid 95.0 Imaging Radiology Impressions: ITS Impressions Chest X-Ray 05/24/24 16:15 IMPRESSION: No evidence of acute disease Electronically signed by: Cholo Lopez MD 05/24/2024 04:32 PM EDT RP Brain MRI 05/29/24 11:29 IMPRESSION: Unremarkable contrast enhanced MRI of the brain. Electronically signed by: Misha Spears MD 05/29/2024 12:43 PM EDT RP Medications Medications Current Medications Acetaminophen (Acetaminophen 325 Mg Tablet) 650 mg PO Q6H PRN PRN Reason: Headache/Pain Mild Scale (1-3) Al Hydroxide/Mg Hydroxide (Magnesium Hydrox/Alum Hydrox 30 Ml Oral.Susp) 30 ml PO Q6H PRN PRN Reason: Heartburn/Nausea Albuterol Sulfate (Albuterol Sulfate 90 Mcg 8 Gm Inhaler) 2 puff INHALE RQ4H PRN PRN Reason: Shortness of Breath Last Admin: 06/02/24 08:30 Dose: 2 puff Calcium Carbonate (Calcium Carbonate 750 Mg Tab.Chew) 750 mg PO Q6H PRN PRN Reason: Heartburn Divalproex Sodium (Divalproex Sodium Er 250 Mg Tab.Er.24h) 1,250 mg PO BEDTIME [facility] Hydroxyzine HCl (Hydroxyzine Hcl 25 Mg Tablet) 25 mg PO Q6H PRN PRN Reason: Anxiety [place] Carbonate ([place] Carbonate Er 300 Mg Tablet.Er) 600 mg PO BID [facility] Last Admin: 06/04/24 09:18 Dose: 600 mg Loratadine (Loratadine 10 Mg Tablet) 10 mg PO DAILY [facility] Last Admin: 06/04/24 09:19 Dose: 10 mg Lorazepam (Lorazepam 1 Mg Tablet) 1 mg PO Q4H PRN PRN Reason: severe anxiety Last Admin: 06/02/24 11:13 Dose: 1 mg Magnesium Hydroxide (Milk Of Magnesia 30 Ml Oral.Susp) 30 ml PO DAILY PRN PRN Reason: Constipation Nicotine (Nicotine 21 Mg Patch.Td24) 21 mg TRANSDERMA DAILY [facility] Last Admin: 06/04/24 09:19 Dose: 21 mg Nicotine Polacrilex (Nicotine Polacrilex 2 Mg Gum) 4 mg BUCCAL Q2H PRN PRN Reason: Nicotine Cravings Quetiapine Fumarate (Quetiapine Fumarate 100 Mg Tablet) 500 mg PO BEDTIME [facility] Simethicone (Simethicone 80 Mg Tab.Chew) 80 mg PO QIDWMHS PRN PRN Reason: Gas Last Admin: 05/31/24 10:34 Dose: 80 mg Trazodone HCl (Trazodone Hcl 50 Mg Tablet) 50 mg PO BEDTIME MRX1 PRN PRN Reason: Insomnia Allergies Allergies Allergy/AdvReac Type Severity Reaction Status Date / Time morphine Allergy Rash Verified 05/23/24 09:54 oxycodone Allergy Rash Verified 05/23/24 09:54 Assessment & Plan Assessment & Plan (1) Encephalopathy: Qualifiers: Encephalopathy type: unspecified encephalopathy Qualified Code(s): G93.40 - Encephalopathy, unspecified Status: Acute Code(s): G93.40 - Encephalopathy, unspecified Assessment and Plan: 23 years old man who reported right-sided headache for last few months. He was admitted with 1st episode of psychosis but he also reported that he had been to emergency room and had CT scan of brain done. Apparently that did not reveal any significant abnormality. If his history is correct, an MRI of brain with and without contrast is warranted. (2) Psychosis: Status: Acute Code(s): F29 - Unspecified psychosis not due to a substance or known physiological condition Plan Admit to M3, conditional voluntary, 15 minute checks TSH, B12, Folate, A1C, Lipid Panel Continue Clonidine, Lorazepam prn, Trazodone prn, recent Olanzapine increase Haldol 5 mg bid to target psychotic thought process 05/28: pt refusing haldol. order DCed. reports only feels worse with zyprexa dosing increase. very anxious and tense. agrees to mood stabilizer trial, VPA. also c/o right FERRIS/burning sensation for months, seen by neuro, who recommended MRI. so ordered. 05/29: MRI WNL. slight improvement in anxiety this morning. continue VPA trial. discussed mgmt with pt's mother. 05/30 continue tx. 05/31 continue tx. 06/01: taper zyprexa, titrate seroquel per pt preference. zyprexa to 15 mg tonight, start seroquel at 300 QHS tonight. labs weds for[facility] - VPA. reporting hearing voices telling him they are telepathically communicating with him, but he does not believe it. also reporting non-stop imagery in his head all day. 06/02: poor sleep overnight. keep zyprexa at 15 and increase seroquel to 600. per pt's strong request, start lithium immediately, at 600 BID. check VPA-related labs tomorrow night. remains feeling very uncomfortable. 06/03: DC zyprexa as pt sedated this morning. continue meds otherwise. check labs tonight. 06/04: VPA 95. denies AH, HI, non-stop imagery presently. feeling too heavy, slow, forgetful. notes improvement with start of lithium. agrees to decrease VPA to 1250 and seroquel to 500 at HS. Reason for continued inpatient stay Substantial Risk for: harm to self, inability to function and rapid decompensation Time Spent With Patient Time: Total time managing care of this patient today __35__ minutes.
[2024-06-04] MEDS: Milk of Magnesia 30 ML ORAL.SUSP PO (17:38)
[2024-06-04 20:00] VITALS: BP 121/79; PULSE 97; RESP 16; TEMP 36.4
[2024-06-04] MEDS: QUEtiapine Fumarate 100 MG TABLET 500 MG PO (20:18)
[2024-06-04] MEDS: Divalproex Sodium ER 250 MG TAB.ER.24H 1250 MG PO (20:19)
[2024-06-05 07:39] VITALS: BP 95/52; PULSE 85; RESP 16; TEMP 36.8; O2SAT 97
[2024-06-05] MEDS: Lithium Carbonate ER 300 MG TABLET.ER 600 MG PO ×2 (08:49→20:03)
[2024-06-05] MEDS: Loratadine 10 MG TABLET PO (08:49)
[2024-06-05] MEDS: Nicotine 21 MG PATCH.TD24 TRANSDERMA (08:50)
--- NOTE | 2024-06-05 14:42 | P.PNPSI_ITS ---
Subjective Subjective Date of Service: 06/05/24 Reason For Visit: HI/psychosis Interim History: am i supposed to feel this heavy? reports resolution of overt psychotic Sx such as AH, HI, VH; yet still feels off and very heavy and sedated now. yet c/o insomnia and asking for seroquel to be returned to 600 mg at HS. seems inclined to DC VPA and remain solely on lithium; VPA dosing decreased yet again to 1000 mg at HS. states he is declining to shower due to everything's feeling overwhelming right now. per staff, anx/dep. taking meds. depressed eves. refusing to shower. slept 8 hours. Mental Status Exam Mental Status Exam Narrative: adequately dressed and groomed. cooperative. no PMA/PMR. speech nml rate, decr amount, nml loudness, nml latency. flattened tone. thoughts linear and logical; some thought disorder or attentional deficit demonstrated by poor retention of information. affect flat. mood anxious. no SI/VH expressed. denies HI, AH. Diagnostics Vital Signs (24Hr): Vital Signs - 24 hr 06/04/24 20:00 06/05/24 07:39 Temperature 97.6 F 98.2 F Pulse Rate 97 85 Respiratory Rate 16 16 Blood Pressure 121/79 95/52 L Pulse Oximetry 97 Oxygen Delivery Method Room Air BMI result Body Mass Index 25.7 Labs 06/03/24 20:38 05/23/24 10:07 Labs: Laboratory Results - last 48 hr 06/03/24 06/03/24 20:37 20:38 WBC 5.7 RBC 5.88 H Hgb 16.7 Hct 49.1 MCV 83.5 MCH 28.4 MCHC 34.0 RDW 13.2 Plt Count 245 MPV 8.1 L Immature Gran % (Auto) 0.2 Neut % (Auto) 58.3 Lymph % (Auto) 29.8 Edwards % (Auto) 8.2 Eos % (Auto) 3.0 Baso % (Auto) 0.5 Lymph # (Auto) 1.7 Edwards # (Auto) 0.5 Eos # (Auto) 0.2 Baso # (Auto) 0.0 Abs Immat Gran (auto) 0.01 Absolute Neuts (auto) 3.3 Absolute Nucleated RBC 0.000 Nucleated RBC % (auto) 0.0 Estimat Average Glucose 108 Hemoglobin A1c % 5.4 Total Bilirubin 0.7 Direct Bilirubin 0.2 AST 17 ALT 24 Alkaline Phosphatase 37 L Ammonia 46 Total Protein 8.0 Albumin 4.6 Triglycerides 41 Cholesterol 153 LDL Cholesterol, Calc 101 H HDL Cholesterol 44 Vitamin B12 482 Folate 12.1 TSH 4.74 H Free T4 1.18 Valproic Acid 95.0 Imaging Radiology Impressions: ITS Impressions Chest X-Ray 05/24/24 16:15 IMPRESSION: No evidence of acute disease Electronically signed by: Cholo Loepz MD 05/24/2024 04:32 PM EDT RP Brain MRI 05/29/24 11:29 IMPRESSION: Unremarkable contrast enhanced MRI of the brain. Electronically signed by: Misha Spears MD 05/29/2024 12:43 PM EDT RP Medications Medications Current Medications Acetaminophen (Acetaminophen 325 Mg Tablet) 650 mg PO Q6H PRN PRN Reason: Headache/Pain Mild Scale (1-3) Al Hydroxide/Mg Hydroxide (Magnesium Hydrox/Alum Hydrox 30 Ml Oral.Susp) 30 ml PO Q6H PRN PRN Reason: Heartburn/Nausea Albuterol Sulfate (Albuterol Sulfate 90 Mcg 8 Gm Inhaler) 2 puff INHALE RQ4H PRN PRN Reason: Shortness of Breath Last Admin: 06/02/24 08:30 Dose: 2 puff Calcium Carbonate (Calcium Carbonate 750 Mg Tab.Chew) 750 mg PO Q6H PRN PRN Reason: Heartburn Divalproex Sodium (Divalproex Sodium Er 500 Mg Tab.Er.24h) 1,000 mg PO BEDTIME [facility] Hydroxyzine HCl (Hydroxyzine Hcl 25 Mg Tablet) 25 mg PO Q6H PRN PRN Reason: Anxiety [place] Carbonate (Ehrenberg Carbonate Er 300 Mg Tablet.Er) 600 mg PO BID [facility] Last Admin: 06/05/24 08:49 Dose: 600 mg Loratadine (Loratadine 10 Mg Tablet) 10 mg PO DAILY [facility] Last Admin: 06/05/24 08:49 Dose: 10 mg Lorazepam (Lorazepam 1 Mg Tablet) 1 mg PO Q4H PRN PRN Reason: severe anxiety Last Admin: 06/02/24 11:13 Dose: 1 mg Magnesium Hydroxide (Milk Of Magnesia 30 Ml Oral.Susp) 30 ml PO DAILY PRN PRN Reason: Constipation Last Admin: 06/04/24 17:38 Dose: 30 ml Nicotine (Nicotine 21 Mg Patch.Td24) 21 mg TRANSDERMA DAILY [facility] Last Admin: 06/05/24 08:50 Dose: 21 mg Nicotine Polacrilex (Nicotine Polacrilex 2 Mg Gum) 4 mg BUCCAL Q2H PRN PRN Reason: Nicotine Cravings Quetiapine Fumarate (Quetiapine Fumarate 300 Mg Tablet) 600 mg PO BEDTIME [facility] Quetiapine Fumarate (Quetiapine Fumarate 100 Mg Tablet) 100 mg PO BEDTIME PRN PRN Reason: insomnia Simethicone (Simethicone 80 Mg Tab.Chew) 80 mg PO QIDWMHS PRN PRN Reason: Gas Last Admin: 05/31/24 10:34 Dose: 80 mg Allergies Allergies Allergy/AdvReac Type Severity Reaction Status Date / Time morphine Allergy Rash Verified 05/23/24 09:54 oxycodone Allergy Rash Verified 05/23/24 09:54 Assessment & Plan Assessment & Plan (1) Encephalopathy: Qualifiers: Encephalopathy type: unspecified encephalopathy Qualified Code(s): G 93.40 - Encephalopathy, unspecified Status: Acute Code(s): G93.40 - Encephalopathy, unspecified Assessment and Plan: 23 years old man who reported right-sided headache for last few months. He was admitted with 1st episode of psychosis but he also reported that he had been to emergency room and had CT scan of brain done. Apparently that did not reveal any significant abnormality. If his history is correct, an MRI of brain with and without contrast is warranted. (2) Psychosis: Status: Acute Code(s): F29 - Unspecified psychosis not due to a substance or known physiological condition Plan Admit to M3, conditional voluntary, 15 minute checks TSH, B12, Folate, A1C, Lipid Panel Continue Clonidine, Lorazepam prn, Trazodone prn, recent Olanzapine increase Haldol 5 mg bid to target psychotic thought process 05/28: pt refusing haldol. order DCed. reports only feels worse with zyprexa dosing increase. very anxious and tense. agrees to mood stabilizer trial, VPA. also c/o right FERRIS/burning sensation for months, seen by neuro, who recommended MRI. so ordered. 05/29: MRI WNL. slight improvement in anxiety this morning. continue VPA trial. discussed mgmt with pt's mother. 05/30 continue tx. 05/31 continue tx. 06/01: taper zyprexa, titrate seroquel per pt preference. zyprexa to 15 mg tonight, start seroquel at 300 QHS tonight. labs weds [facility] - VPA. reporting hearing voices telling him they are telepathically communicating with him, but he does not believe it. also reporting non-stop imagery in his head all day. 06/02: poor sleep overnight. keep zyprexa at 15 and increase seroquel to 600. per pt's strong request, start lithium immediately, at 600 BID. check VPA- related labs tomorrow night. remains feeling very uncomfortable. 06/03: DC zyprexa as pt sedated this morning. continue meds otherwise. check labs tonight. 06/04: VPA 95. denies AH, HI, non-stop imagery presently. feeling too heavy, slow, forgetful. notes improvement with start of lithium. agrees to decrease VPA to 1250 and seroquel to 500 at HS. 06/05: c/o poor sleep. positive Sx remain absent. c/o feeling overwhelmed, is fairly flat, some thought disorder appears to be present (poor information retention). asking to increase seroquel back to 600, which is done. also askikng to continue VPA taper, which is agreed to, with VPA being cur back to 1000 mg QHS. labs ordered for saturday night. family mtg held with mother. Reason for continued inpatient stay Substantial Risk for: harm to self, harm to others, inability to function and rapid decompensation Time Spent With Patient Time: Total time managing care of this patient today __55__ minutes.
[2024-06-05 19:42] VITALS: BP 147/87; PULSE 103; RESP 18; TEMP 36.7; O2SAT 99
[2024-06-05] MEDS: Divalproex Sodium ER 500 MG TAB.ER.24H 1000 MG PO (20:03)
[2024-06-05] MEDS: QUEtiapine Fumarate 100 MG TABLET PO (20:04)
[2024-06-05] MEDS: QUEtiapine Fumarate 300 MG TABLET 600 MG PO (20:04)
[2024-06-06] MEDS: Nicotine 21 MG PATCH.TD24 TRANSDERMA (08:59)
[2024-06-06] MEDS: Loratadine 10 MG TABLET PO (09:00)
[2024-06-06] MEDS: Lithium Carbonate ER 300 MG TABLET.ER 600 MG PO ×2 (09:00→20:08)
[2024-06-06 09:16] VITALS: BP 128/67; PULSE 97; RESP 18; TEMP 38; O2SAT 97
--- NOTE | 2024-06-06 10:06 | P.PNPSI_ITS ---
Subjective Subjective Date of Service: 06/06/24 Reason For Visit: HI/psychosis Subjective Notes: Conditional Voluntary Interim History: Patient was seen and discussed in rounds today. Records and plans were reviewed. He is eating and sleeping adequately. He continues to be guarded with flat affect. No groups. Continues to endorse anxiety and depression. No complaints or side effects. No changes were made today Review of Systems Review of Systems Yes Unobtainable due to mental status Mental Status Exam Mental Status Exam Narrative: In today's visit he is alert, pleasant and interactive within his means. Speech is soft-spoken. Little eye contact. No overt signs of psychosis. Cognitively has slow thought processes. No AVH. No SI/HI. Cognitively has slowed thought processes. Diagnostics Vital Signs (24Hr): Vital Signs - 24 hr 06/05/24 19:42 06/06/24 09:16 Temperature 98.1 F 100.4 F Pulse Rate 103 H 97 Respiratory Rate 18 18 Blood Pressure 147/87 H 128/67 Pulse Oximetry 99 97 Oxygen Delivery Method Room Air Room Air BMI result Body Mass Index 25.7 Labs 06/03/24 20:38 05/23/24 10:07 Imaging Radiology Impressions: ITS Impressions Chest X-Ray 05/24/24 16:15 IMPRESSION: No evidence of acute disease Electronically signed by: Cholo Lopez MD 05/24/2024 04:32 PM EDT RP Brain MRI 05/29/24 11:29 IMPRESSION: Unremarkable contrast enhanced MRI of the brain. Electronically signed by: Misha Spears MD 05/29/2024 12:43 PM EDT RP Medications Medications Current Medications Acetaminophen (Acetaminophen 325 Mg Tablet) 650 mg PO Q6H PRN PRN Reason: Headache/Pain Mild Scale (1-3) Al Hydroxide/Mg Hydroxide (Magnesium Hydrox/Alum Hydrox 30 Ml Oral.Susp) 30 ml PO Q6H PRN PRN Reason: Heartburn/Nausea Albuterol Sulfate (Albuterol Sulfate 90 Mcg 8 Gm Inhaler) 2 puff INHALE RQ4H PRN PRN Reason: Shortness of Breath Last Admin: 06/02/24 08:30 Dose: 2 puff Calcium Carbonate (Calcium Carbonate 750 Mg Tab.Chew) 750 mg PO Q6H PRN PRN Reason: Heartburn Divalproex Sodium (Divalproex Sodium Er 500 Mg Tab.Er.24h) 1,000 mg PO BEDTIME [facility] Last Admin: 06/05/24 20:03 Dose: 1,000 mg Hydroxyzine HCl (Hydroxyzine Hcl 25 Mg Tablet) 25 mg PO Q6H PRN PRN Reason: Anxiety [place] Carbonate ([place] Carbonate Er 300 Mg Tablet.Er) 600 mg PO BID [facility] Last Admin: 06/06/24 09:00 Dose: 600 mg Loratadine (Loratadine 10 Mg Tablet) 10 mg PO DAILY [facility] Last Admin: 06/06/24 09:00 Dose: 10 mg Lorazepam (Lorazepam 1 Mg Tablet) 1 mg PO Q4H PRN PRN Reason: severe anxiety Last Admin: 06/02/24 11:13 Dose: 1 mg Magnesium Hydroxide (Milk Of Magnesia 30 Ml Oral.Susp) 30 ml PO DAILY PRN PRN Reason: Constipation Last Admin: 06/04/24 17:38 Dose: 30 ml Nicotine (Nicotine 21 Mg Patch.Td24) 21 mg TRANSDERMA DAILY [facility] Last Admin: 06/06/24 08:59 Dose: 21 mg Nicotine Polacrilex (Nicotine Polacrilex 2 Mg Gum) 4 mg BUCCAL Q2H PRN PRN Reason: Nicotine Cravings Quetiapine Fumarate (Quetiapine Fumarate 300 Mg Tablet) 600 mg PO BEDTIME [facility] Last Admin: 06/05/24 20:04 Dose: 600 mg Quetiapine Fumarate (Quetiapine Fumarate 100 Mg Tablet) 100 mg PO BEDTIME PRN PRN Reason: insomnia Last Admin: 06/05/24 20:04 Dose: 100 mg Simethicone (Simethicone 80 Mg Tab.Chew) 80 mg PO QIDWMHS PRN PRN Reason: Gas Last Admin: 05/31/24 10:34 Dose: 80 mg Allergies Allergies Allergy/AdvReac Type Severity Reaction Status Date / Time morphine Allergy Rash Verified 05/23/24 09:54 oxycodone Allergy Rash Verified 05/23/24 09:54 Assessment & Plan Assessment & Plan (1) Encephalopathy: Qualifiers: Encephalopathy type: unspecified encephalopathy Qualified Code(s): G 93.40 - Encephalopathy, unspecified Status: Acute Code(s): G93.40 - Encephalopathy, unspecified Assessment and Plan: 23 years old man who reported right-sided headache for last few months. He was admitted with 1st episode of psychosis but he also reported that he had been to emergency room and had CT scan of brain done. Apparently that did not reveal any significant abnormality. If his history is correct, an MRI of brain with and without contrast is warranted. (2) Psychosis: Status: Acute Code(s): F29 - Unspecified psychosis not due to a substance or known physiological condition Plan Admit to M3, conditional voluntary, 15 minute checks TSH, B12, Folate, A1C, Lipid Panel Continue Clonidine, Lorazepam prn, Trazodone prn, recent Olanzapine increase Haldol 5 mg bid to target psychotic thought process 05/28: pt refusing haldol. order DCed. reports only feels worse with zyprexa dosing increase. very anxious and tense. agrees to mood stabilizer trial, VPA. also c/o right FERRIS/burning sensation for months, seen by neuro, who recommended MRI. so ordered. 05/29: MRI WNL. slight improvement in anxiety this morning. continue VPA trial. discussed mgmt with pt's mother. 05/30 continue tx. 05/31 continue tx. 06/01: taper zyprexa, titrate seroquel per pt preference. zyprexa to 15 mg tonight, start seroquel at 300 QHS tonight. labs [facility] - VPA. reporting hearing voices telling him they are telepathically communicating with him, but he does not believe it. also reporting non-stop imagery in his head all day. 06/02: poor sleep overnight. keep zyprexa at 15 and increase seroquel to 600. per pt's strong request, start lithium immediately, at 600 BID. check VPA- related labs tomorrow night. remains feeling very uncomfortable. 06/03: DC zyprexa as pt sedated this morning. continue meds otherwise. check labs tonight. 06/04: VPA 95. denies AH, HI, non-stop imagery presently. feeling too heavy, slow, forgetful. notes improvement with start of lithium. agrees to decrease VPA to 1250 and seroquel to 500 at HS. 06/05: c/o poor sleep. positive Sx remain absent. c/o feeling overwhelmed, is fairly flat, some thought disorder appears to be present (poor information retention). asking to increase seroquel back to 600, which is done. also askikng to continue VPA taper, which is agreed to, with VPA being cur back to 1000 mg QHS. labs ordered for saturday night. family mtg held with mother. 06/06: Continue current regimen and plans Reason for continued inpatient stay Substantial Risk for: med/psych decompensation Time Spent With Patient Time: Total time managing care of this patient today ____ minutes.
[2024-06-06 11:11] VITALS: TEMP 37
[2024-06-06] MEDS: Acetaminophen 325 MG TABLET 650 MG PO (12:15)
[2024-06-06] MEDS: Magnesium Hydrox/Alum Hydrox 30 ML ORAL.SUSP PO (18:17)
[2024-06-06 18:25] VITALS: BP 136/80; PULSE 97; RESP 18; TEMP 36.9; O2SAT 99
[2024-06-06 20:00] VITALS: BP 137/80; PULSE 97; RESP 18; TEMP 37.1; O2SAT 100
[2024-06-06] MEDS: QUEtiapine Fumarate 300 MG TABLET 600 MG PO (20:06)
[2024-06-06] MEDS: QUEtiapine Fumarate 100 MG TABLET PO (20:07)
[2024-06-06] MEDS: Divalproex Sodium ER 500 MG TAB.ER.24H 1000 MG PO (20:07)
[2024-06-06] MEDS: hydrOXYzine HCL 25 MG TABLET PO (20:07)
[2024-06-06] MEDS: Docusate Sodium 100 MG CAPSULE PO (20:07)
[2024-06-07] MEDS: Albuterol Sulfate 90 MCG 8 GM INHALER 2 PUFF INHALE (00:56)
[2024-06-07 01:00] VITALS: BP 115/79; PULSE 126; RESP 20; TEMP 36.7; O2SAT 100
--- NOTE | 2024-06-07 01:02 | PC.NURSE ---
Gail down to the nursing station to report he was not feeling well. Reports he feels heavy with some difficulty breathing. Patient reporting that he is not anxious. BP 115/79 with a HR of 126. Nurse offered patient Ativan PO prn, but patient declined. Patient given Albuterol inhaler PO prn to help ease his breathing. Patient reported some head pressure but declined Tylenol PO prn. Patient sitting in dayroom in corner, waiting to see if there are any changes, possible anxiety attack. Nurse will continue to monitor.
--- NOTE | 2024-06-07 01:14 | PC.NURSE ---
Nurse tested patient's blood glucose, was 105. Nurse walked patient back to his room. Patient stated he was going to try to return to sleep.
[2024-06-07 01:17] LABS: Glucose, Whole Blood 105 mg/dL (60-115)
[2024-06-07 08:23] VITALS: BP 110/61; PULSE 89; RESP 18; TEMP 36.8; O2SAT 99
[2024-06-07] MEDS: Lithium Carbonate ER 300 MG TABLET.ER 600 MG PO ×2 (08:59→20:29)
[2024-06-07] MEDS: Docusate Sodium 100 MG CAPSULE PO ×2 (08:59→20:29)
[2024-06-07] MEDS: Nicotine 21 MG PATCH.TD24 TRANSDERMA (08:59)
[2024-06-07] MEDS: Loratadine 10 MG TABLET PO (09:00)
--- NOTE | 2024-06-07 10:05 | P.PNPSI_ITS ---
Subjective Subjective Date of Service: 06/07/24 Reason For Visit: HI/psychosis Subjective Notes: Conditional Voluntary Interim History: Patient was seen and discussed in rounds today. Records and plans were reviewed. He has been complaining of a ?heaviness? and sluggishness. I decreased his nighttime Seroquel by 200 mg but he still does have the 100 mg p.r.n. if needed. Mild anxiety and depression persisting. He has had some anxiety attacks and does have Ativan available. No active SI. No other changes were made. Review of Systems Review of Systems Heaviness and sluggishness Yes all other systems are reviewed and are negative Mental Status Exam Mental Status Exam Narrative: In today's visit he is alert, pleasant and interactive within his means. Speech is soft-spoken. Little eye contact. No overt signs of psychosis. Cognitively has slow thought processes. No AVH. No SI/HI. Cognitively has slowed thought processes. Diagnostics Vital Signs (24Hr): Vital Signs - 24 hr 06/06/24 11:11 06/06/24 18:25 06/06/24 20:00 Temperature 98.6 F 98.4 F 98.8 F Pulse Rate 97 97 Respiratory Rate 18 18 Blood Pressure 136/80 137/80 Pulse Oximetry 99 100 Oxygen Delivery Method Room Air Room Air 06/07/24 01:00 06/07/24 08:23 Temperature 98.1 F 98.2 F Pulse Rate 126 H 89 Respiratory Rate 20 18 Blood Pressure 115/79 110/61 Pulse Oximetry 100 99 Oxygen Delivery Method Room Air Room Air BMI result Body Mass Index 25.7 Labs 06/03/24 20:38 05/23/24 10:07 Labs: Laboratory Results - last 48 hr 06/07/24 01:09 POC Glucose 105 Imaging Radiology Impressions: ITS Impressions Chest X-Ray 05/24/24 16:15 IMPRESSION: No evidence of acute disease Electronically signed by: Cholo Lopez MD 05/24/2024 04:32 PM EDT RP Brain MRI 05/29/24 11:29 IMPRESSION: Unremarkable contrast enhanced MRI of the brain. Electronically signed by: Misha Spears MD 05/29/2024 12:43 PM EDT RP Medications Medications Current Medications Acetaminophen (Acetaminophen 325 Mg Tablet) 650 mg PO Q6H PRN PRN Reason: Headache/Pain Mild Scale (1-3) Last Admin: 06/06/24 12:15 Dose: 650 mg Al Hydroxide/Mg Hydroxide (Magnesium Hydrox/Alum Hydrox 30 Ml Oral.Susp) 30 ml PO Q6H PRN PRN Reason: Heartburn/Nausea Last Admin: 06/06/24 18:17 Dose: 30 ml Albuterol Sulfate (Albuterol Sulfate 90 Mcg 8 Gm Inhaler) 2 puff INHALE RQ4H PRN PRN Reason: Shortness of Breath Last Admin: 06/07/24 00:56 Dose: 2 puff Calcium Carbonate (Calcium Carbonate 750 Mg Tab.Chew) 750 mg PO Q6H PRN PRN Reason: Heartburn Divalproex Sodium (Divalproex Sodium Er 500 Mg Tab.Er.24h) 1,000 mg PO BEDTIME [facility] Last Admin: 06/06/24 20:07 Dose: 1,000 mg Docusate Sodium (Docusate Sodium 100 Mg Capsule) 100 mg PO BID [facility] Last Admin: 06/07/24 08:59 Dose: 100 mg Hydroxyzine HCl (Hydroxyzine Hcl 25 Mg Tablet) 25 mg PO Q6H PRN PRN Reason: Anxiety Last Admin: 06/06/24 20:07 Dose: 25 mg [place] Carbonate ([place] Carbonate Er 300 Mg Tablet.Er) 600 mg PO BID [facility] Last Admin: 06/07/24 08:59 Dose: 600 mg Loratadine (Loratadine 10 Mg Tablet) 10 mg PO DAILY [facility] Last Admin: 06/07/24 09:00 Dose: 10 mg Lorazepam (Lorazepam 1 Mg Tablet) 1 mg PO Q4H PRN PRN Reason: severe anxiety Last Admin: 06/02/24 11:13 Dose: 1 mg Magnesium Hydroxide (Milk Of Magnesia 30 Ml Oral.Susp) 30 ml PO DAILY PRN PRN Reason: Constipation Last Admin: 06/04/24 17:38 Dose: 30 ml Nicotine (Nicotine 21 Mg Patch.Td24) 21 mg TRANSDERMA DAILY [facility] Last Admin: 06/07/24 08:59 Dose: 21 mg Nicotine Polacrilex (Nicotine Polacrilex 2 Mg Gum) 4 mg BUCCAL Q2H PRN PRN Reason: Nicotine Cravings Quetiapine Fumarate (Quetiapine Fumarate 300 Mg Tablet) 600 mg PO BEDTIME [facility] Last Admin: 06/06/24 20:06 Dose: 600 mg Quetiapine Fumarate (Quetiapine Fumarate 100 Mg Tablet) 100 mg PO BEDTIME PRN PRN Reason: insomnia Last Admin: 06/06/24 20:07 Dose: 100 mg Simethicone (Simethicone 80 Mg Tab.Chew) 80 mg PO QIDWMHS PRN PRN Reason: Gas Last Admin: 05/31/24 10:34 Dose: 80 mg Allergies Allergies Allergy/AdvReac Type Severity Reaction Status Date / Time morphine Allergy Rash Verified 05/23/24 09:54 oxycodone Allergy Rash Verified 05/23/24 09:54 Assessment & Plan Assessment & Plan (1) Encephalopathy: Qualifiers: Encephalopathy type: unspecified encephalopathy Qualified Code(s): G 93.40 - Encephalopathy, unspecified Status: Acute Code(s): G93.40 - Encephalopathy, unspecified Assessment and Plan: 23 years old man who reported right-sided headache for last few months. He was admitted with 1st episode of psychosis but he also reported that he had been to emergency room and had CT scan of brain done. Apparently that did not reveal any significant abnormality. If his history is correct, an MRI of brain with and without contrast is warranted. (2) Psychosis: Status: Acute Code(s): F29 - Unspecified psychosis not due to a substance or known physiological condition Plan Admit to M3, conditional voluntary, 15 minute checks TSH, B12, Folate, A1C, Lipid Panel Continue Clonidine, Lorazepam prn, Trazodone prn, recent Olanzapine increase Haldol 5 mg bid to target psychotic thought process 05/28: pt refusing haldol. order DCed. reports only feels worse with zyprexa dosing increase. very anxious and tense. agrees to mood stabilizer trial, VPA. also c/o right FERRIS/burning sensation for months, seen by neuro, who recommended MRI. so ordered. 05/29: MRI WNL. slight improvement in anxiety this morning. continue VPA trial. discussed mgmt with pt's mother. 05/30 continue tx. 05/31 continue tx. 06/01: taper zyprexa, titrate seroquel per pt preference. zyprexa to 15 mg tonight, start seroquel at 300 QHS tonight. labs weds [facility] - VPA. reporting hearing voices telling him they are telepathically communicating with him, but he does not believe it. also reporting non-stop imagery in his head all day. 06/02: poor sleep overnight. keep zyprexa at 15 and increase seroquel to 600. per pt's strong request, start lithium immediately, at 600 BID. check VPA- related labs tomorrow night. remains feeling very uncomfortable. 06/03: DC zyprexa as pt sedated this morning. continue meds otherwise. check labs tonight. 06/04: VPA 95. denies AH, HI, non-stop imagery presently. feeling too heavy, slow, forgetful. notes improvement with start of lithium. agrees to decrease VPA to 1250 and seroquel to 500 at HS. 06/05: c/o poor sleep. positive Sx remain absent. c/o feeling overwhelmed, is fairly flat, some thought disorder appears to be present (poor information retention). asking to increase seroquel back to 600, which is done. also askikng to continue VPA taper, which is agreed to, with VPA being cur back to 1000 mg QHS. labs ordered for saturday night. family mtg held with mother. 06/06: Continue current regimen and plans 06/07: Continue current regimen and plans. Decreased nighttime Seroquel by 200 mg Patient educated on: medication risk/benefits Reason for continued inpatient stay Substantial Risk for: med/psych decompensation Time Spent With Patient Time: Total time managing care of this patient today ____ minutes.
[2024-06-07 19:56] VITALS: BP 136/76; PULSE 91; RESP 16; TEMP 37.1; O2SAT 99
[2024-06-07] MEDS: QUEtiapine Fumarate 400 MG TABLET PO (20:29)
[2024-06-07] MEDS: Divalproex Sodium ER 500 MG TAB.ER.24H 1000 MG PO (20:29)
--- NOTE | 2024-06-08 00:31 | PC.NURSE ---
Gail initially refused HS labs but then agreed to have the labs drawn. The telegraph service clerk however, was unable to obtain a blood sample. MD to be notified in the morning of the need to reorder labs if desired. HS medications accepted without hesitation.
[2024-06-08 08:30] VITALS: BP 104/59; PULSE 97; RESP 16; TEMP 36.4; O2SAT 97
[2024-06-08] MEDS: Lithium Carbonate ER 300 MG TABLET.ER 600 MG PO ×2 (09:00→20:10)
[2024-06-08] MEDS: Loratadine 10 MG TABLET PO (09:00)
[2024-06-08] MEDS: Nicotine 21 MG PATCH.TD24 TRANSDERMA (09:00)
[2024-06-08] MEDS: Docusate Sodium 100 MG CAPSULE PO ×2 (09:00→20:10)
--- NOTE | 2024-06-08 15:07 | P.PNPSI_ITS ---
Subjective Subjective Date of Service: 06/08/24 Reason For Visit: HI/psychosis Interim History: calm, cooperative. not so good. appears as he did last week. reports that some of his troubling Sx from [employer] have returned, such as feeling that things aren't real and intrusive thoughts of harming others. reports these Sx began to return on saturday. believes it has to do with the zyprexa to seroquel switch. asks about starting a higher potency antipsychotic. also states he is feeling spaced out, that it is hard to think. c/o poor memory. feeling like people are watching him in the hospital. he had believed that people could see what was going on inside his head [employer]. agreeable to start fluphenazine 5 QHS. also to re-draw labs tonight. told to hydrate in preparation. per staff, taking meds. TV in afternoon. c/o dizziness. foggy head. eves no somatic complaints. slept 8 hours. unable to draw labs last night. Mental Status Exam Mental Status Exam Narrative: adequately dressed and groomed. cooperative. no PMA/PMR. speech nml rate, decr amount, nml loudness, nml latency. flattened tone. thoughts linear and logical; thought disorder appears improved, better executive and memory function. affect flat. mood anxious. no SI/AVH expressed. +HI. Diagnostics Vital Signs (24Hr): Vital Signs - 24 hr 06/07/24 19:56 06/08/24 08:30 Temperature 98.8 F 97.6 F Pulse Rate 91 97 Respiratory Rate 16 16 Blood Pressure 136/76 104/59 L Pulse Oximetry 99 97 Oxygen Delivery Method Room Air Room Air BMI result Body Mass Index 25.7 Labs 06/03/24 20:38 05/23/24 10:07 Labs: Laboratory Results - last 48 hr 06/07/24 01:09 POC Glucose 105 Imaging Radiology Impressions: ITS Impressions Chest X-Ray 05/24/24 16:15 IMPRESSION: No evidence of acute disease Electronically signed by: Cholo Lopez MD 05/24/2024 04:32 PM EDT RP Brain MRI 05/29/24 11:29 IMPRESSION: Unremarkable contrast enhanced MRI of the brain. Electronically signed by: Misha Spears MD 05/29/2024 12:43 PM EDT RP Medications Medications Current Medications Acetaminophen (Acetaminophen 325 Mg Tablet) 650 mg PO Q6H PRN PRN Reason: Headache/Pain Mild Scale (1-3) Last Admin: 06/06/24 12:15 Dose: 650 mg Al Hydroxide/Mg Hydroxide (Magnesium Hydrox/Alum Hydrox 30 Ml Oral.Susp) 30 ml PO Q6H PRN PRN Reason: Heartburn/Nausea Last Admin: 06/06/24 18:17 Dose: 30 ml Albuterol Sulfate (Albuterol Sulfate 90 Mcg 8 Gm Inhaler) 2 puff INHALE RQ4H PRN PRN Reason: Shortness of Breath Last Admin: 06/07/24 00:56 Dose: 2 puff Calcium Carbonate (Calcium Carbonate 750 Mg Tab.Chew) 750 mg PO Q6H PRN PRN Reason: Heartburn Divalproex Sodium (Divalproex Sodium Er 500 Mg Tab.Er.24h) 1,000 mg PO BEDTIME [facility] Last Admin: 06/07/24 20:29 Dose: 1,000 mg Docusate Sodium (Docusate Sodium 100 Mg Capsule) 100 mg PO BID [facility] Last Admin: 06/08/24 09:00 Dose: 100 mg Fluphenazine HCl (Fluphenazine Hcl 5 Mg Tablet) 5 mg PO BEDTIME [facility] Hydroxyzine HCl (Hydroxyzine Hcl 25 Mg Tablet) 25 mg PO Q6H PRN PRN Reason: Anxiety Last Admin: 06/06/24 20:07 Dose: 25 mg [place] Carbonate ([place] Carbonate Er 300 Mg Tablet.Er) 600 mg PO BID [facility] Last Admin: 06/08/24 09:00 Dose: 600 mg Loratadine (Loratadine 10 Mg Tablet) 10 mg PO DAILY [facility] Last Admin: 06/08/24 09:00 Dose: 10 mg Lorazepam (Lorazepam 1 Mg Tablet) 1 mg PO Q4H PRN PRN Reason: severe anxiety Last Admin: 06/02/24 11:13 Dose: 1 mg Magnesium Hydroxide (Milk Of Magnesia 30 Ml Oral.Susp) 30 ml PO DAILY PRN PRN Reason: Constipation Last Admin: 06/04/24 17:38 Dose: 30 ml Nicotine (Nicotine 21 Mg Patch.Td24) 21 mg TRANSDERMA DAILY [facility] Last Admin: 06/08/24 09:00 Dose: 21 mg Nicotine Polacrilex (Nicotine Polacrilex 2 Mg Gum) 4 mg BUCCAL Q2H PRN PRN Reason: Nicotine Cravings Quetiapine Fumarate (Quetiapine Fumarate 100 Mg Tablet) 100 mg PO BEDTIME PRN PRN Reason: insomnia Last Admin: 06/06/24 20:07 Dose: 100 mg Quetiapine Fumarate (Quetiapine Fumarate 400 Mg Tablet) 400 mg PO BEDTIME [facility] Last Admin: 06/07/24 20:29 Dose: 400 mg Simethicone (Simethicone 80 Mg Tab.Chew) 80 mg PO QIDWMHS PRN PRN Reason: Gas Last Admin: 05/31/24 10:34 Dose: 80 mg Allergies Allergies Allergy/AdvReac Type Severity Reaction Status Date / Time morphine Allergy Rash Verified 05/23/24 09:54 oxycodone Allergy Rash Verified 05/23/24 09:54 Assessment & Plan Assessment & Plan (1) Encephalopathy: Qualifiers: Encephalopathy type: unspecified encephalopathy Qualified Code(s): G 93.40 - Encephalopathy, unspecified Status: Acute Code(s): G93.40 - Encephalopathy, unspecified Assessment and Plan: 23 years old man who reported right-sided headache for last few months. He was admitted with 1st episode of psychosis but he also reported that he had been to emergency room and had CT scan of brain done. Apparently that did not reveal any significant abnormality. If his history is correct, an MRI of brain with and without contrast is warranted. (2) Psychosis: Status: Acute Code(s): F29 - Unspecified psychosis not due to a substance or known physiological condition Plan Admit to M3, conditional voluntary, 15 minute checks TSH, B12, Folate, A1C, Lipid Panel Continue Clonidine, Lorazepam prn, Trazodone prn, recent Olanzapine increase Haldol 5 mg bid to target psychotic thought process 05/28: pt refusing haldol. order DCed. reports only feels worse with zyprexa dosing increase. very anxious and tense. agrees to mood stabilizer trial, VPA. also c/o right FERRIS/burning sensation for months, seen by neuro, who recommended MRI. so ordered. 05/29: MRI WNL. slight improvement in anxiety this morning. continue VPA trial. discussed mgmt with pt's mother. 05/30 continue tx. 05/31 continue tx. 06/01: taper zyprexa, titrate seroquel per pt preference. zyprexa to 15 mg tonight, start seroquel at 300 QHS tonight. labs weds [facility] - VPA. reporting hearing voices telling him they are telepathically communicating with him, but he does not believe it. also reporting non-stop imagery in his head all day. 06/02: poor sleep overnight. keep zyprexa at 15 and increase seroquel to 600. per pt's strong request, start lithium immediately, at 600 BID. check VPA- related labs tomorrow night. remains feeling very uncomfortable. 06/03: DC zyprexa as pt sedated this morning. continue meds otherwise. check labs tonight. 06/04: VPA 95. denies AH, HI, non-stop imagery presently. feeling too heavy, slow, forgetful. notes improvement with start of lithium. agrees to decrease VPA to 1250 and seroquel to 500 at HS. 06/05: c/o poor sleep. positive Sx remain absent. c/o feeling overwhelmed, is fairly flat, some thought disorder appears to be present (poor information retention). asking to increase seroquel back to 600, which is done. also askikng to continue VPA taper, which is agreed to, with VPA being cur back to 1000 mg QHS. labs ordered for saturday night. family mtg held with mother. 06/06: Continue current regimen and plans 06/07: Continue current regimen and plans. Decreased nighttime Seroquel by 200 mg 06/08: reporting resurgence of sense that nothing is real (ie that we inhabit a video game) as well as intrusive HI, starting from saturday. slept well last night, however. concerned it was the DC of zyprexa and start of seroquel that caused the change. asks to start high potency neuroleptic, agrees to begin with fluphenazine 5 mg QHS as of tonight. R/B discussed, incl akathisia and dystonia. draw labs tonight. Reason for continued inpatient stay Substantial Risk for: harm to self, harm to others, inability to function and rapid decompensation Time Spent With Patient Time: Total time managing care of this patient today __35__ minutes.
[2024-06-08 19:45] VITALS: BP 135/78; PULSE 87; RESP 16; TEMP 37.1; O2SAT 98
[2024-06-08] MEDS: QUEtiapine Fumarate 400 MG TABLET PO (20:10)
[2024-06-08] MEDS: fluPHENAZine HCl 5 MG TABLET PO (20:11)
[2024-06-08] MEDS: Divalproex Sodium ER 500 MG TAB.ER.24H 1000 MG PO (20:11)
[2024-06-08 20:21] LABS: Ammonia 35 umol/L (13-55); Lithium 0.83 mmol/L (0.60-1.20)
[2024-06-08 20:26] LABS: Valproate 77.7 mcg/mL (50.0-100.0)
[2024-06-08 20:31] LABS: Alanine Aminotransferase 19 U/L (0-40); Albumin Level 4.6 g/dL (3.5-5.0); Alkaline Phosphatase 38 U/L (39-117); Anion Gap 15 (12-20); Aspartate Amino Transferase 22 U/L (5-37); Bilirubin Direct 0.2 mg/dL (0.0-0.5); Bilirubin Total 0.5 mg/dL (0.0-1.0); Blood Urea Nitrogen 12 mg/dL (9-16); Calcium 10.2 mg/dL (8.4-10.2); Carbon Dioxide 28 mmol/L (22-29); Chloride 106 mmol/L (96-108); Creatinine Clr Calc Pharmacy 133.3; Estimated Glomerular Filt Rate > 60; Glucose Random 85 mg/dL (60-115); Potassium 4.5 mmol/L (3.3-5.1); Sodium 144 mmol/L (135-145); Total Protein 8.1 g/dL (6.5-8.0)
[2024-06-09] MEDS: Docusate Sodium 100 MG CAPSULE PO ×2 (08:37→20:18)
[2024-06-09] MEDS: Nicotine 21 MG PATCH.TD24 TRANSDERMA ×2 (08:37→16:52)
[2024-06-09] MEDS: Loratadine 10 MG TABLET PO (08:37)
[2024-06-09] MEDS: Lithium Carbonate ER 300 MG TABLET.ER 600 MG PO ×2 (08:37→20:19)
[2024-06-09] MEDS: Albuterol Sulfate 90 MCG 8 GM INHALER 2 PUFF INHALE (12:47)
--- NOTE | 2024-06-09 12:53 | PC.NURSE ---
Pt reported left sided chest discomfort and stated it feels like something is stuck there. Pt also reported feeling short of breath, pt received Albuterol inhaler. Vitals: 98.7 126/77 HR 109 O2 96%, MD aware.
--- NOTE | 2024-06-09 13:40 | P.PNPSI_ITS ---
Subjective Subjective Date of Service: 06/09/24 Reason For Visit: HI/psychosis Interim History: no change in presentation. endorses intrusive thoughts of harming others, denies voices or imagery. states he feels detached and disconnected. the detached and disconnected feeling hasn't changed since admission. agreeable to increasing prolixin to 5 BID as of tomorrow and decreasing HS seroquel to 300. reports he slept well last night. labs reviewed: lithium level 0.83, VPA level 77.7. per staff, believes ppl are staring at him. taking meds. poor eye contact. slept 8 hours overnight. Mental Status Exam Mental Status Exam Narrative: adequately dressed and groomed. cooperative. no PMA/PMR. speech nml rate, decr amount, nml loudness, nml latency. flattened tone. thoughts linear and logical; thought disorder appears improved, better executive and memory function. affect flat. mood anxious. no SI/AVH expressed. +HI. Diagnostics Vital Signs (24Hr): Vital Signs - 24 hr 06/08/24 19:45 Temperature 98.8 F Pulse Rate 87 Respiratory Rate 16 Blood Pressure 135/78 Pulse Oximetry 98 Oxygen Delivery Method Room Air BMI result Body Mass Index 25.7 Labs 06/03/24 20:38 06/08/24 19:55 Labs: Laboratory Results - last 48 hr 06/08/24 19:55 Sodium 144 Potassium 4.5 Chloride 106 Carbon Dioxide 28 Anion Gap 15 BUN 12 Creatinine 0.99 Estim Creat Clear Calc 133.3 Estimated GFR > 60 Random Glucose 85 Calcium 10.2 Total Bilirubin 0.5 Direct Bilirubin 0.2 AST 22 ALT 19 Alkaline Phosphatase 38 L Ammonia 35 Total Protein 8.1 H Albumin 4.6 Valproic Acid 77.7 [place] 0.83 Imaging Radiology Impressions: ITS Impressions Chest X-Ray 05/24/24 16:15 IMPRESSION: No evidence of acute disease Electronically signed by: Cholo Lopez MD 05/24/2024 04:32 PM EDT RP Brain MRI 05/29/24 11:29 IMPRESSION: Unremarkable contrast enhanced MRI of the brain. Electronically signed by: Misha Spears MD 05/29/2024 12:43 PM EDT RP Medications Medications Current Medications Acetaminophen (Acetaminophen 325 Mg Tablet) 650 mg PO Q6H PRN PRN Reason: Headache/Pain Mild Scale (1-3) Last Admin: 06/06/24 12:15 Dose: 650 mg Al Hydroxide/Mg Hydroxide (Magnesium Hydrox/Alum Hydrox 30 Ml Oral.Susp) 30 ml PO Q6H PRN PRN Reason: Heartburn/Nausea Last Admin: 06/06/24 18:17 Dose: 30 ml Albuterol Sulfate (Albuterol Sulfate 90 Mcg 8 Gm Inhaler) 2 puff INHALE RQ4H PRN PRN Reason: Shortness of Breath Last Admin: 06/09/24 12:47 Dose: 2 puff Calcium Carbonate (Calcium Carbonate 750 Mg Tab.Chew) 750 mg PO Q6H PRN PRN Reason: Heartburn Divalproex Sodium (Divalproex Sodium Er 500 Mg Tab.Er.24h) 1,000 mg PO BEDTIME [facility] Last Admin: 06/08/24 20:11 Dose: 1,000 mg Docusate Sodium (Docusate Sodium 100 Mg Capsule) 100 mg PO BID [facility] Last Admin: 06/09/24 08:37 Dose: 100 mg Fluphenazine HCl (Fluphenazine Hcl 5 Mg Tablet) 5 mg PO BID [facility] Hydroxyzine HCl (Hydroxyzine Hcl 25 Mg Tablet) 25 mg PO Q6H PRN PRN Reason: Anxiety Last Admin: 06/06/24 20:07 Dose: 25 mg [place] Carbonate ([place] Carbonate Er 300 Mg Tablet.Er) 600 mg PO BID [facility] Last Admin: 06/09/24 08:37 Dose: 600 mg Loratadine (Loratadine 10 Mg Tablet) 10 mg PO DAILY [facility] Last Admin: 06/09/24 08:37 Dose: 10 mg Lorazepam (Lorazepam 1 Mg Tablet) 1 mg PO Q4H PRN PRN Reason: severe anxiety Last Admin: 06/02/24 11:13 Dose: 1 mg Magnesium Hydroxide (Milk Of Magnesia 30 Ml Oral.Susp) 30 ml PO DAILY PRN PRN Reason: Constipation Last Admin: 06/04/24 17:38 Dose: 30 ml Nicotine (Nicotine 21 Mg Patch.Td24) 21 mg TRANSDERMA DAILY [facility] Last Admin: 06/09/24 08:37 Dose: 21 mg Nicotine Polacrilex (Nicotine Polacrilex 2 Mg Gum) 4 mg BUCCAL Q2H PRN PRN Reason: Nicotine Cravings Quetiapine Fumarate (Quetiapine Fumarate 100 Mg Tablet) 100 mg PO BEDTIME PRN PRN Reason: insomnia Last Admin: 06/06/24 20:07 Dose: 100 mg Quetiapine Fumarate (Quetiapine Fumarate 300 Mg Tablet) 300 mg PO BEDTIME [facility] Simethicone (Simethicone 80 Mg Tab.Chew) 80 mg PO QIDWMHS PRN PRN Reason: Gas Last Admin: 05/31/24 10:34 Dose: 80 mg Allergies Allergies Allergy/AdvReac Type Severity Reaction Status Date / Time morphine Allergy Rash Verified 05/23/24 09:54 oxycodone Allergy Rash Verified 05/23/24 09:54 Assessment & Plan Assessment & Plan (1) Encephalopathy: Qualifiers: Encephalopathy type: unspecified encephalopathy Qualified Code(s): G 93.40 - Encephalopathy, unspecified Status: Acute Code(s): G93.40 - Encephalopathy, unspecified Assessment and Plan: 23 years old man who reported right-sided headache for last few months. He was admitted with 1st episode of psychosis but he also reported that he had been to emergency room and had CT scan of brain done. Apparently that did not reveal any significant abnormality. If his history is correct, an MRI of brain with and without contrast is warranted. (2) Psychosis: Status: Acute Code(s): F29 - Unspecified psychosis not due to a substance or known physiological condition Plan Admit to M3, conditional voluntary, 15 minute checks TSH, B12, Folate, A1C, Lipid Panel Continue Clonidine, Lorazepam prn, Trazodone prn, recent Olanzapine increase Haldol 5 mg bid to target psychotic thought process 05/28: pt refusing haldol. order DCed. reports only feels worse with zyprexa dosing increase. very anxious and tense. agrees to mood stabilizer trial, VPA. also c/o right FERRIS/burning sensation for months, seen by neuro, who recommended MRI. so ordered. 05/29: MRI WNL. slight improvement in anxiety this morning. continue VPA trial. discussed mgmt with pt's mother. 05/30 continue tx. 05/31 continue tx. 06/01: taper zyprexa, titrate seroquel per pt preference. zyprexa to 15 mg tonight, start seroquel at 300 QHS tonight. labs weds [facility] - VPA. reporting hearing voices telling him they are telepathically communicating with him, but he does not believe it. also reporting non-stop imagery in his head all day. 06/02: poor sleep overnight. keep zyprexa at 15 and increase seroquel to 600. per pt's strong request, start lithium immediately, at 600 BID. check VPA- related labs tomorrow night. remains feeling very uncomfortable. 06/03: DC zyprexa as pt sedated this morning. continue meds otherwise. check labs tonight. 06/04: VPA 95. denies AH, HI, non-stop imagery presently. feeling too heavy, slow, forgetful. notes improvement with start of lithium. agrees to decrease VPA to 1250 and seroquel to 500 at HS. 06/05: c/o poor sleep. positive Sx remain absent. c/o feeling overwhelmed, is fairly flat, some thought disorder appears to be present (poor information retention). asking to increase seroquel back to 600, which is done. also askikng to continue VPA taper, which is agreed to, with VPA being cur back to 1000 mg QHS. labs ordered for saturday night. family mtg held with mother. 06/06: Continue current regimen and plans 06/07: Continue current regimen and plans. Decreased nighttime Seroquel by 200 mg 06/08: reporting resurgence of sense that nothing is real (ie that we inhabit a video game) as well as intrusive HI, starting from saturday. slept well last night, however. concerned it was the DC of zyprexa and start of seroquel that caused the change. asks to start high potency neuroleptic, agrees to begin with fluphenazine 5 mg QHS as of tonight. R/B discussed, incl akathisia and dystonia. draw labs tonight. 06/09: lithium 0.83, VPA 77.7. other labs reassuring. slept well. +intrusive HI thoughts, no AVH. increase prolixin to 5 BID as of tomorrow. decrease seroquel to 300 as of tonight. family mtg had with pt's mother. Reason for continued inpatient stay Substantial Risk for: harm to self, harm to others, inability to function and rapid decompensation Time Spent With Patient Time: Total time managing care of this patient today __55__ minutes.
[2024-06-09 20:00] VITALS: BP 131/77; PULSE 87; RESP 16; TEMP 37.1; O2SAT 98
[2024-06-09] MEDS: fluPHENAZine HCl 5 MG TABLET PO (20:18)
[2024-06-09] MEDS: QUEtiapine Fumarate 300 MG TABLET PO (20:19)
[2024-06-09] MEDS: Divalproex Sodium ER 500 MG TAB.ER.24H 1000 MG PO (20:19)
[2024-06-10] MEDS: Docusate Sodium 100 MG CAPSULE PO ×2 (08:34→20:18)
[2024-06-10] MEDS: Lithium Carbonate ER 300 MG TABLET.ER 600 MG PO ×2 (08:34→20:18)
[2024-06-10] MEDS: fluPHENAZine HCl 5 MG TABLET PO ×2 (08:34→20:18)
[2024-06-10] MEDS: Loratadine 10 MG TABLET PO (08:34)
[2024-06-10] MEDS: Nicotine 21 MG PATCH.TD24 TRANSDERMA (08:35)
--- NOTE | 2024-06-10 14:47 | HO.PSYCHPN ---
Subjective Subjective Date of Service: 06/10/24 Reason For Visit: HI/psychosis Interim History: seen with ASHLEY Botello. detailed discussion had re DDx and Tx. pt continues better able to think and express his thoughts than prior. reports he continues to feel things aren't real and to have intrusive HI (such as toward his GM earlier in the day when she had visited). c/o poor sleep overnight. agrees to increase seroquel back to 400 tonight and continue meds regimen otherwise. per staff, showered last night. c/o mild CP for past several weeks. taking medications. visible eves. no SI/HI/AVH. in bed by 8:45 pm, appeared to have slept all NOC. Mental Status Exam Mental Status Exam Narrative: adequately dressed and groomed. cooperative. no PMA/PMR. speech nml rate, amount, loudness, latency. flattened tone. thoughts linear and logical; thought disorder appears improved, better executive and memory function. affect flat. mood anxious. no SI/AVH expressed. +HI. Diagnostics Vital Signs (24Hr): Vital Signs - 24 hr 06/09/24 20:00 Temperature 98.7 F Pulse Rate 87 Respiratory Rate 16 Blood Pressure 131/77 Pulse Oximetry 98 Oxygen Delivery Method Room Air BMI result Body Mass Index 25.7 Labs 06/03/24 20:38 06/08/24 19:55 Labs: Laboratory Results - last 48 hr 06/08/24 19:55 Sodium 144 Potassium 4.5 Chloride 106 Carbon Dioxide 28 Anion Gap 15 BUN 12 Creatinine 0.99 Estim Creat Clear Calc 133.3 Estimated GFR > 60 Random Glucose 85 Calcium 10.2 Total Bilirubin 0.5 Direct Bilirubin 0.2 AST 22 ALT 19 Alkaline Phosphatase 38 L Ammonia 35 Total Protein 8.1 H Albumin 4.6 Valproic Acid 77.7 [place] 0.83 Imaging Radiology Impressions: ITS Impressions Chest X-Ray 05/24/24 16:15 IMPRESSION: No evidence of acute disease Electronically signed by: Cholo Lopez MD 05/24/2024 04:32 PM EDT RP Brain MRI 05/29/24 11:29 IMPRESSION: Unremarkable contrast enhanced MRI of the brain. Electronically signed by: Misha Spears MD 05/29/2024 12:43 PM EDT RP Medications Medications Current Medications Acetaminophen (Acetaminophen 325 Mg Tablet) 650 mg PO Q6H PRN PRN Reason: Headache/Pain Mild Scale (1-3) Last Admin: 06/06/24 12:15 Dose: 650 mg Al Hydroxide/Mg Hydroxide (Magnesium Hydrox/Alum Hydrox 30 Ml Oral.Susp) 30 ml PO Q6H PRN PRN Reason: Heartburn/Nausea Last Admin: 06/06/24 18:17 Dose: 30 ml Albuterol Sulfate (Albuterol Sulfate 90 Mcg 8 Gm Inhaler) 2 puff INHALE RQ4H PRN PRN Reason: Shortness of Breath Last Admin: 06/09/24 12:47 Dose: 2 puff Calcium Carbonate (Calcium Carbonate 750 Mg Tab.Chew) 750 mg PO Q6H PRN PRN Reason: Heartburn Divalproex Sodium (Divalproex Sodium Er 500 Mg Tab.Er.24h) 1,000 mg PO BEDTIME [facility] Last Admin: 06/09/24 20:19 Dose: 1,000 mg Docusate Sodium (Docusate Sodium 100 Mg Capsule) 100 mg PO BID [facility] Last Admin: 06/10/24 08:34 Dose: 100 mg Fluphenazine HCl (Fluphenazine Hcl 5 Mg Tablet) 5 mg PO BID [facility] Last Admin: 06/10/24 08:34 Dose: 5 mg Hydroxyzine HCl (Hydroxyzine Hcl 25 Mg Tablet) 25 mg PO Q6H PRN PRN Reason: Anxiety Last Admin: 06/06/24 20:07 Dose: 25 mg [place] Carbonate ([place] Carbonate Er 300 Mg Tablet.Er) 600 mg PO BID [facility] Last Admin: 06/10/24 08:34 Dose: 600 mg Loratadine (Loratadine 10 Mg Tablet) 10 mg PO DAILY [facility] Last Admin: 06/10/24 08:34 Dose: 10 mg Lorazepam (Lorazepam 1 Mg Tablet) 1 mg PO Q4H PRN PRN Reason: severe anxiety Last Admin: 06/02/24 11:13 Dose: 1 mg Magnesium Hydroxide (Milk Of Magnesia 30 Ml Oral.Susp) 30 ml PO DAILY PRN PRN Reason: Constipation Last Admin: 06/04/24 17:38 Dose: 30 ml Nicotine (Nicotine 21 Mg Patch.Td24) 21 mg TRANSDERMA DAILY [facility] Last Admin: 06/10/24 08:35 Dose: 21 mg Nicotine Polacrilex (Nicotine Polacrilex 2 Mg Gum) 4 mg BUCCAL Q2H PRN PRN Reason: Nicotine Cravings Quetiapine Fumarate (Quetiapine Fumarate 100 Mg Tablet) 100 mg PO BEDTIME PRN PRN Reason: insomnia Last Admin: 06/06/24 20:07 Dose: 100 mg Quetiapine Fumarate (Quetiapine Fumarate 300 Mg Tablet) 300 mg PO BEDTIME [facility] Last Admin: 06/09/24 20:19 Dose: 300 mg Simethicone (Simethicone 80 Mg Tab.Chew) 80 mg PO QIDWMHS PRN PRN Reason: Gas Last Admin: 05/31/24 10:34 Dose: 80 mg Allergies Allergies Allergy/AdvReac Type Severity Reaction Status Date / Time morphine Allergy Rash Verified 05/23/24 09:54 oxycodone Allergy Rash Verified 05/23/24 09:54 Assessment & Plan Assessment & Plan (1) Encephalopathy: Qualifiers: Encephalopathy type: unspecified encephalopathy Qualified Code(s): G93.40 - Encephalopathy, unspecified Status: Acute Code(s): G93.40 - Encephalopathy, unspecified Assessment and Plan: 23 years old man who reported right-sided headache for last few months. He was admitted with 1st episode of psychosis but he also reported that he had been to emergency room and had CT scan of brain done. Apparently that did not reveal any significant abnormality. If his history is correct, an MRI of brain with and without contrast is warranted. (2) Psychosis: Status: Acute Code(s): F29 - Unspecified psychosis not due to a substance or known physiological condition Plan Admit to M3, conditional voluntary, 15 minute checks TSH, B12, Folate, A1C, Lipid Panel Continue Clonidine, Lorazepam prn, Trazodone prn, recent Olanzapine increase Haldol 5 mg bid to target psychotic thought process 05/28: pt refusing haldol. order DCed. reports only feels worse with zyprexa dosing increase. very anxious and tense. agrees to mood stabilizer trial, VPA. also c/o right FERRIS/burning sensation for months, seen by neuro, who recommended MRI. so ordered. 05/29: MRI WNL. slight improvement in anxiety this morning. continue VPA trial. discussed mgmt with pt's mother. 05/30 continue tx. 05/31 continue tx. 06/01: taper zyprexa, titrate seroquel per pt preference. zyprexa to 15 mg tonight, start seroquel at 300 QHS tonight. labs weds for[facility] - VPA. reporting hearing voices telling him they are telepathically communicating with him, but he does not believe it. also reporting non-stop imagery in his head all day. 06/02: poor sleep overnight. keep zyprexa at 15 and increase seroquel to 600. per pt's strong request, start lithium immediately, at 600 BID. check VPA-related labs tomorrow night. remains feeling very uncomfortable. 06/03: DC zyprexa as pt sedated this morning. continue meds otherwise. check labs tonight. 06/04: VPA 95. denies AH, HI, non-stop imagery presently. feeling too heavy, slow, forgetful. notes improvement with start of lithium. agrees to decrease VPA to 1250 and seroquel to 500 at HS. 06/05: c/o poor sleep. positive Sx remain absent. c/o feeling overwhelmed, is fairly flat, some thought disorder appears to be present (poor information retention). asking to increase seroquel back to 600, which is done. also askikng to continue VPA taper, which is agreed to, with VPA being cur back to 1000 mg QHS. labs ordered for saturday night. family mtg held with mother. 06/06: Continue current regimen and plans 06/07: Continue current regimen and plans. Decreased nighttime Seroquel by 200 mg 06/08: reporting resurgence of sense that nothing is real (ie that we inhabit a video game) as well as intrusive HI, starting from saturday. slept well last night, however. concerned it was the DC of zyprexa and start of seroquel that caused the change. asks to start high potency neuroleptic, agrees to begin with fluphenazine 5 mg QHS as of tonight. R/B discussed, incl akathisia and dystonia. draw labs tonight. 06/09: lithium 0.83, VPA 77.7. other labs reassuring. slept well. +intrusive HI thoughts, no AVH. increase prolixin to 5 BID as of tomorrow. decrease seroquel to 300 as of tonight. family mtg had with pt's mother. 06/10: pt notes h/o Spice use, as recently as 1.5 months ago. 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 poor sleep last night, increase seroquel back to 400 mg at HS. Reason for continued inpatient stay Substantial Risk for: harm to self, harm to others and inability to function Time Spent With Patient Time: Total time managing care of this patient today __45__ minutes.
[2024-06-10 20:00] VITALS: BP 146/71; PULSE 89; TEMP 36; O2SAT 99
[2024-06-10] MEDS: QUEtiapine Fumarate 400 MG TABLET PO (20:17)
[2024-06-10] MEDS: Divalproex Sodium ER 500 MG TAB.ER.24H 1000 MG PO (20:17)
[2024-06-11] MEDS: Docusate Sodium 100 MG CAPSULE PO ×2 (08:45→20:07)
[2024-06-11] MEDS: Lithium Carbonate ER 300 MG TABLET.ER 600 MG PO ×2 (08:45→20:06)
[2024-06-11] MEDS: fluPHENAZine HCl 5 MG TABLET PO (08:45)
[2024-06-11] MEDS: Loratadine 10 MG TABLET PO (08:45)
[2024-06-11] MEDS: Nicotine 21 MG PATCH.TD24 TRANSDERMA (08:45)
[2024-06-11 09:00] VITALS: BP 90/52; PULSE 66; RESP 18; TEMP 36.7; O2SAT 96
--- NOTE | 2024-06-11 13:56 | P.PNPSI_ITS ---
Subjective Subjective Date of Service: 06/11/24 Reason For Visit: HI/psychosis Interim History: feeling agitated on prolixin. does not want to try adding cogentin or benadryl. asking to come off of mood stabilizers, rationale for keeping him on explained. agrees to DC prolixin and return to zyprexa. will restart at 30 QHS while decreasing seroquel to 300 QHS. per staff, flat. taking meds. c/o poor sleep. slept 6-7 hours. Mental Status Exam Mental Status Exam Narrative: adequately dressed and groomed. cooperative. no PMA/PMR. speech nml rate, amount, loudness, latency. flattened tone. thoughts linear and logical; thought disorder appears improved, better executive and memory function. affect flat. mood anxious. no SI/HI/AVH expressed. Diagnostics Vital Signs (24Hr): Vital Signs - 24 hr 06/10/24 20:00 06/11/24 09:00 Temperature 96.8 F 98.0 F Pulse Rate 89 66 Respiratory Rate 18 Blood Pressure 146/71 H 90/52 L Pulse Oximetry 99 96 Oxygen Delivery Method Room Air Room Air BMI result Body Mass Index 25.7 Labs 06/03/24 20:38 06/08/24 19:55 Imaging Radiology Impressions: ITS Impressions Chest X-Ray 05/24/24 16:15 IMPRESSION: No evidence of acute disease Electronically signed by: Cholo Lopez MD 05/24/2024 04:32 PM EDT Brain MRI 05/29/24 11:29 IMPRESSION: Unremarkable contrast enhanced MRI of the brain. Electronically signed by: Misha Spears MD 05/29/2024 12:43 PM EDT RP Medications Medications Current Medications Acetaminophen (Acetaminophen 325 Mg Tablet) 650 mg PO Q6H PRN PRN Reason: Headache/Pain Mild Scale (1-3) Last Admin: 06/06/24 12:15 Dose: 650 mg Al Hydroxide/Mg Hydroxide (Magnesium Hydrox/Alum Hydrox 30 Ml Oral.Susp) 30 ml PO Q6H PRN PRN Reason: Heartburn/Nausea Last Admin: 06/06/24 18:17 Dose: 30 ml Albuterol Sulfate (Albuterol Sulfate 90 Mcg 8 Gm Inhaler) 2 puff INHALE RQ4H PRN PRN Reason: Shortness of Breath Last Admin: 06/09/24 12:47 Dose: 2 puff Calcium Carbonate (Calcium Carbonate 750 Mg Tab.Chew) 750 mg PO Q6H PRN PRN Reason: Heartburn Divalproex Sodium (Divalproex Sodium Er 500 Mg Tab.Er.24h) 1,000 mg PO BEDTIME [facility] Last Admin: 06/10/24 20:17 Dose: 1,000 mg Docusate Sodium (Docusate Sodium 100 Mg Capsule) 100 mg PO BID [facility] Last Admin: 06/11/24 08:45 Dose: 100 mg Hydroxyzine HCl (Hydroxyzine Hcl 25 Mg Tablet) 25 mg PO Q6H PRN PRN Reason: Anxiety Last Admin: 06/06/24 20:07 Dose: 25 mg [place] Carbonate ([place] Carbonate Er 300 Mg Tablet.Er) 600 mg PO BID [facility] Last Admin: 06/11/24 08:45 Dose: 600 mg Loratadine (Loratadine 10 Mg Tablet) 10 mg PO DAILY [facility] Last Admin: 06/11/24 08:45 Dose: 10 mg Lorazepam (Lorazepam 1 Mg Tablet) 1 mg PO Q4H PRN PRN Reason: severe anxiety Last Admin: 06/02/24 11:13 Dose: 1 mg Magnesium Hydroxide (Milk Of Magnesia 30 Ml Oral.Susp) 30 ml PO DAILY PRN PRN Reason: Constipation Last Admin: 06/04/24 17:38 Dose: 30 ml Nicotine (Nicotine 21 Mg Patch.Td24) 21 mg TRANSDERMA DAILY [facility] Last Admin: 06/11/24 08:45 Dose: 21 mg Nicotine Polacrilex (Nicotine Polacrilex 2 Mg Gum) 4 mg [place] Q2H PRN PRN Reason: Nicotine Cravings Olanzapine (Olanzapine 10 Mg Tablet) 30 mg PO BEDTIME [facility] Quetiapine Fumarate (Quetiapine Fumarate 100 Mg Tablet) 100 mg PO BEDTIME PRN PRN Reason: insomnia Last Admin: 06/06/24 20:07 Dose: 100 mg Quetiapine Fumarate (Quetiapine Fumarate 300 Mg Tablet) 300 mg PO BEDTIME [facility] Simethicone (Simethicone 80 Mg Tab.Chew) 80 mg PO QIDWMHS PRN PRN Reason: Gas Last Admin: 05/31/24 10:34 Dose: 80 mg Allergies Allergies Allergy/AdvReac Type Severity Reaction Status Date / Time morphine Allergy Rash Verified 05/23/24 09:54 oxycodone Allergy Rash Verified 05/23/24 09:54 Assessment & Plan Assessment & Plan (1) Encephalopathy: Qualifiers: Encephalopathy type: unspecified encephalopathy Qualified Code(s): G 93.40 - Encephalopathy, unspecified Status: Acute Code(s): G93.40 - Encephalopathy, unspecified Assessment and Plan: 23 years old man who reported right-sided headache for last few months. He was admitted with 1st episode of psychosis but he also reported that he had been to emergency room and had CT scan of brain done. Apparently that did not reveal any significant abnormality. If his history is correct, an MRI of brain with and without contrast is warranted. (2) Psychosis: Status: Acute Code(s): F29 - Unspecified psychosis not due to a substance or known physiological condition Plan Admit to M3, conditional voluntary, 15 minute checks TSH, B12, Folate, A1C, Lipid Panel Continue Clonidine, Lorazepam prn, Trazodone prn, recent Olanzapine increase Haldol 5 mg bid to target psychotic thought process 05/28: pt refusing haldol. order DCed. reports only feels worse with zyprexa dosing increase. very anxious and tense. agrees to mood stabilizer trial, VPA. also c/o right FERRIS/burning sensation for months, seen by neuro, who recommended MRI. so ordered. 05/29: MRI WNL. slight improvement in anxiety this morning. continue VPA trial. discussed mgmt with pt's mother. 05/30 continue tx. 05/31 continue tx. 06/01: taper zyprexa, titrate seroquel per pt preference. zyprexa to 15 mg tonight, start seroquel at 300 QHS tonight. labs weds [facility] - VPA. reporting hearing voices telling him they are telepathically communicating with him, but he does not believe it. also reporting non-stop imagery in his head all day. 06/02: poor sleep overnight. keep zyprexa at 15 and increase seroquel to 600. per pt's strong request, start lithium immediately, at 600 BID. check VPA- related labs tomorrow night. remains feeling very uncomfortable. 06/03: DC zyprexa as pt sedated this morning. continue meds otherwise. check labs tonight. 06/04: VPA 95. denies AH, HI, non-stop imagery presently. feeling too heavy, slow, forgetful. notes improvement with start of lithium. agrees to decrease VPA to 1250 and seroquel to 500 at HS. 06/05: c/o poor sleep. positive Sx remain absent. c/o feeling overwhelmed, is fairly flat, some thought disorder appears to be present (poor information retention). asking to increase seroquel back to 600, which is done. also askikng to continue VPA taper, which is agreed to, with VPA being cur back to 1000 mg QHS. labs ordered for saturday night. family mtg held with mother. 06/06: Continue current regimen and plans 06/07: Continue current regimen and plans. Decreased nighttime Seroquel by 200 mg 06/08: reporting resurgence of sense that nothing is real (ie that we inhabit a video game) as well as intrusive HI, starting from saturday. slept well last night, however. concerned it was the DC of zyprexa and start of seroquel that caused the change. asks to start high potency neuroleptic, agrees to begin with fluphenazine 5 mg QHS as of tonight. R/B discussed, incl akathisia and dystonia. draw labs tonight. 06/09: lithium 0.83, VPA 77.7. other labs reassuring. slept well. +intrusive HI thoughts, no AVH. increase prolixin to 5 BID as of tomorrow. decrease seroquel to 300 as of tonight. family mtg had with pt's mother. 06/10: pt notes h/o Spice use, as recently as 1.5 months ago. 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 poor sleep last night, increase seroquel back to 400 mg at HS. 06/11: c/o agitation on prolixin. declines to add cogentin or benadryl. DC prolixin, restart zyprexa 30 mg QHS. decrease seroquel to 300 QHS, plan to taper off entirely. Reason for continued inpatient stay Substantial Risk for: harm to self, harm to others, inability to function and rapid decompensation Time Spent With Patient Time: Total time managing care of this patient today __25__ minutes.
[2024-06-11 20:00] VITALS: BP 130/81; PULSE 83; RESP 16; TEMP 36.9; O2SAT 100
[2024-06-11] MEDS: Divalproex Sodium ER 500 MG TAB.ER.24H 1000 MG PO (20:05)
[2024-06-11] MEDS: OLANZapine 10 MG TABLET 30 MG PO (20:06)
[2024-06-11] MEDS: QUEtiapine Fumarate 300 MG TABLET PO (20:07)
[2024-06-12] MEDS: LORazepam 1 MG TABLET PO (02:46)
--- NOTE | 2024-06-12 05:42 | PC.NURSE ---
Woke up once and complained of increased anxiety, PRN Ativan 1mg administered at 0245. He refused PRN Zyprexa 5mg for severe anxiety.
[2024-06-12 08:00] VITALS: BP 127/74; PULSE 88; RESP 16; TEMP 36.9; O2SAT 99
[2024-06-12] MEDS: Lithium Carbonate ER 300 MG TABLET.ER 600 MG PO ×2 (09:14→20:03)
[2024-06-12] MEDS: Docusate Sodium 100 MG CAPSULE PO ×2 (09:15→20:03)
[2024-06-12] MEDS: Loratadine 10 MG TABLET PO (09:15)
--- NOTE | 2024-06-12 15:34 | P.PNPSI_ITS ---
Subjective Subjective Date of Service: 06/12/24 Reason For Visit: HI/psychosis Interim History: in bed. i'm all set for today. declines interview. does state he did not sleep well last night. agreeable to have ativan 2 mg added to HS meds. per staff, not attending groups. taking meds. endorsing thought-broadcasting. watching TV. slept 7 hours, up once overnight. Mental Status Exam Mental Status Exam Narrative: adequately dressed and groomed. cooperative but declining interview. no PMA/PMR. speech nml rate, amount, loudness, latency. flattened tone. thoughts linear and logical; thought disorder appears improved, better executive and memory function. affect flat. mood anxious. no SI/HI/AVH expressed. Diagnostics Vital Signs (24Hr): Vital Signs - 24 hr 06/11/24 20:00 06/12/24 08:00 Temperature 98.5 F 98.5 F Pulse Rate 83 88 Respiratory Rate 16 16 Blood Pressure 130/81 127/74 Pulse Oximetry 100 99 Oxygen Delivery Method Room Air Room Air BMI result Body Mass Index 25.7 Labs 06/03/24 20:38 06/08/24 19:55 Imaging Radiology Impressions: ITS Impressions Chest X-Ray 05/24/24 16:15 IMPRESSION: No evidence of acute disease Electronically signed by: Cholo Lopez MD 05/24/2024 04:32 PM EDT Brain MRI 05/29/24 11:29 IMPRESSION: Unremarkable contrast enhanced MRI of the brain. Electronically signed by: Misha Spears MD 05/29/2024 12:43 PM EDT Medications Medications Current Medications Acetaminophen (Acetaminophen 325 Mg Tablet) 650 mg PO Q6H PRN PRN Reason: Headache/Pain Mild Scale (1-3) Last Admin: 06/06/24 12:15 Dose: 650 mg Al Hydroxide/Mg Hydroxide (Magnesium Hydrox/Alum Hydrox 30 Ml Oral.Susp) 30 ml PO Q6H PRN PRN Reason: Heartburn/Nausea Last Admin: 06/06/24 18:17 Dose: 30 ml Albuterol Sulfate (Albuterol Sulfate 90 Mcg 8 Gm Inhaler) 2 puff INHALE RQ4H PRN PRN Reason: Shortness of Breath Last Admin: 06/09/24 12:47 Dose: 2 puff Calcium Carbonate (Calcium Carbonate 750 Mg Tab.Chew) 750 mg PO Q6H PRN PRN Reason: Heartburn Divalproex Sodium (Divalproex Sodium Er 500 Mg Tab.Er.24h) 1,000 mg PO BEDTIME [facility] Last Admin: 06/11/24 20:05 Dose: 1,000 mg Docusate Sodium (Docusate Sodium 100 Mg Capsule) 100 mg PO BID [facility] Last Admin: 06/12/24 09:15 Dose: 100 mg Hydroxyzine HCl (Hydroxyzine Hcl 25 Mg Tablet) 25 mg PO Q6H PRN PRN Reason: Anxiety Last Admin: 06/06/24 20:07 Dose: 25 mg [place] Carbonate ([place] Carbonate Er 300 Mg Tablet.Er) 600 mg PO BID [facility] Last Admin: 06/12/24 09:14 Dose: 600 mg Loratadine (Loratadine 10 Mg Tablet) 10 mg PO DAILY [facility] Last Admin: 06/12/24 09:15 Dose: 10 mg Lorazepam (Lorazepam 1 Mg Tablet) 1 mg PO Q4H PRN PRN Reason: severe anxiety Last Admin: 06/12/24 02:46 Dose: 1 mg Magnesium Hydroxide (Milk Of Magnesia 30 Ml Oral.Susp) 30 ml PO DAILY PRN PRN Reason: Constipation Last Admin: 06/04/24 17:38 Dose: 30 ml Nicotine (Nicotine 21 Mg Patch.Td24) 21 mg TRANSDERMA DAILY [facility] Last Admin: 06/12/24 09:16 Dose: Not Given Nicotine Polacrilex (Nicotine Polacrilex 2 Mg Gum) 4 mg BUCCAL Q2H PRN PRN Reason: Nicotine Cravings Olanzapine (Olanzapine 10 Mg Tablet) 30 mg PO BEDTIME [facility] Last Admin: 06/11/24 20:06 Dose: 30 mg Quetiapine Fumarate (Quetiapine Fumarate 100 Mg Tablet) 100 mg PO BEDTIME PRN PRN Reason: insomnia Last Admin: 06/06/24 20:07 Dose: 100 mg Quetiapine Fumarate (Quetiapine Fumarate 300 Mg Tablet) 300 mg PO BEDTIME [facility] Last Admin: 06/11/24 20:07 Dose: 300 mg Simethicone (Simethicone 80 Mg Tab.Chew) 80 mg PO QIDWMHS PRN PRN Reason: Gas Last Admin: 05/31/24 10:34 Dose: 80 mg Allergies Allergies Allergy/AdvReac Type Severity Reaction Status Date / Time morphine Allergy Rash Verified 05/23/24 09:54 oxycodone Allergy Rash Verified 05/23/24 09:54 Assessment & Plan Assessment & Plan (1) Encephalopathy: Qualifiers: Encephalopathy type: unspecified encephalopathy Qualified Code(s): G 93.40 - Encephalopathy, unspecified Status: Acute Code(s): G93.40 - Encephalopathy, unspecified Assessment and Plan: 23 years old man who reported right-sided headache for last few months. He was admitted with 1st episode of psychosis but he also reported that he had been to emergency room and had CT scan of brain done. Apparently that did not reveal any significant abnormality. If his history is correct, an MRI of brain with and without contrast is warranted. (2) Psychosis: Status: Acute Code(s): F29 - Unspecified psychosis not due to a substance or known physiological condition Plan Admit to M3, conditional voluntary, 15 minute checks TSH, B12, Folate, A1C, Lipid Panel Continue Clonidine, Lorazepam prn, Trazodone prn, recent Olanzapine increase Haldol 5 mg bid to target psychotic thought process 05/28: pt refusing haldol. order DCed. reports only feels worse with zyprexa dosing increase. very anxious and tense. agrees to mood stabilizer trial, VPA. also c/o right FERRIS/burning sensation for months, seen by neuro, who recommended MRI. so ordered. 05/29: MRI WNL. slight improvement in anxiety this morning. continue VPA trial. discussed mgmt with pt's mother. 05/30 continue tx. 05/31 continue tx. 06/01: taper zyprexa, titrate seroquel per pt preference. zyprexa to 15 mg tonight, start seroquel at 300 QHS tonight. labs weds for[facility] - VPA. reporting hearing voices telling him they are telepathically communicating with him, but he does not believe it. also reporting non-stop imagery in his head all day. 06/02: poor sleep overnight. keep zyprexa at 15 and increase seroquel to 600. per pt's strong request, start lithium immediately, at 600 BID. check VPA- related labs tomorrow night. remains feeling very uncomfortable. 06/03: DC zyprexa as pt sedated this morning. continue meds otherwise. check labs tonight. 06/04: VPA 95. denies AH, HI, non-stop imagery presently. feeling too heavy, slow, forgetful. notes improvement with start of lithium. agrees to decrease VPA to 1250 and seroquel to 500 at HS. 06/05: c/o poor sleep. positive Sx remain absent. c/o feeling overwhelmed, is fairly flat, some thought disorder appears to be present (poor information retention). asking to increase seroquel back to 600, which is done. also askikng to continue VPA taper, which is agreed to, with VPA being cur back to 1000 mg QHS. labs ordered for saturday night. family mtg held with mother. 06/06: Continue current regimen and plans 06/07: Continue current regimen and plans. Decreased nighttime Seroquel by 200 mg 06/08: reporting resurgence of sense that nothing is real (ie that we inhabit a video game) as well as intrusive HI, starting from saturday. slept well last night, however. concerned it was the DC of zyprexa and start of seroquel that caused the change. asks to start high potency neuroleptic, agrees to begin with fluphenazine 5 mg QHS as of tonight. R/B discussed, incl akathisia and dystonia. draw labs tonight. 06/09: lithium 0.83, VPA 77.7. other labs reassuring. slept well. +intrusive HI thoughts, no AVH. increase prolixin to 5 BID as of tomorrow. decrease seroquel to 300 as of tonight. family mtg had with pt's mother. 06/10: pt notes h/o Spice use, as recently as 1.5 months ago. 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 poor sleep last night, increase seroquel back to 400 mg at HS. 06/11: c/o agitation on prolixin. declines to add cogentin or benadryl. DC prolixin, restart zyprexa 30 mg QHS. decrease seroquel to 300 QHS, plan to taper off entirely. 06/12: declined interview. c/o poor sleep. ativan 2 mg added for HS. otherwise continue current mgmt. Reason for continued inpatient stay Substantial Risk for: harm to self and inability to function Time Spent With Patient Time: Total time managing care of this patient today ____ minutes.
[2024-06-12 19:57] VITALS: BP 135/85; PULSE 97; RESP 18; TEMP 36.6; O2SAT 98
[2024-06-12] MEDS: OLANZapine 10 MG TABLET 30 MG PO (20:03)
[2024-06-12] MEDS: Divalproex Sodium ER 500 MG TAB.ER.24H 1000 MG PO (20:03)
[2024-06-12] MEDS: LORazepam 1 MG TABLET 2 MG PO (20:03)
[2024-06-12] MEDS: QUEtiapine Fumarate 300 MG TABLET PO (20:04)
[2024-06-13] MEDS: Docusate Sodium 100 MG CAPSULE PO ×2 (09:32→20:39)
[2024-06-13] MEDS: Lithium Carbonate ER 300 MG TABLET.ER 600 MG PO ×2 (09:33→20:39)
[2024-06-13] MEDS: Loratadine 10 MG TABLET PO (09:33)
--- NOTE | 2024-06-13 10:11 | P.PNPSI_ITS ---
Subjective Subjective Date of Service: 06/13/24 Reason For Visit: HI/psychosis Subjective Notes: Conditional Voluntary Interim History: Reviewed with Dr. Fitzgerald. Lying in bed. Guarded. Responding with one-word answers. Patient reports feeling good today; does not report any issues. Denies SI/HI/VH/AH. Per nursing patient slept. Medication Compliance: Yes Side effects from medications: No Attending Groups: No Review of Systems Review of Systems Yes Unobtainable due to mental status Mental Status Exam Mental Status Exam Patient Orientation: Person, Place and Situation Level of Consciousness: Awake Patient Behavior: Guarded Mood Description: Calm Affect Description: Blunted Speech Pattern: Soft-Spoken and Mumbled Diagnostics Vital Signs (24Hr): Vital Signs - 24 hr 06/12/24 19:57 Temperature 97.9 F Pulse Rate 97 Respiratory Rate 18 Blood Pressure 135/85 Pulse Oximetry 98 Oxygen Delivery Method Room Air BMI result Body Mass Index 25.7 Labs 06/03/24 20:38 06/08/24 19:55 Imaging Radiology Impressions: ITS Impressions Chest X-Ray 05/24/24 16:15 IMPRESSION: No evidence of acute disease Electronically signed by: Cholo Lopez MD 05/24/2024 04:32 PM EDT RP Brain MRI 05/29/24 11:29 IMPRESSION: Unremarkable contrast enhanced MRI of the brain. Electronically signed by: Misha Spears MD 05/29/2024 12:43 PM EDT RP Medications Medications Current Medications Acetaminophen (Acetaminophen 325 Mg Tablet) 650 mg PO Q6H PRN PRN Reason: Headache/Pain Mild Scale (1-3) Last Admin: 06/06/24 12:15 Dose: 650 mg Al Hydroxide/Mg Hydroxide (Magnesium Hydrox/Alum Hydrox 30 Ml Oral.Susp) 30 ml PO Q6H PRN PRN Reason: Heartburn/Nausea Last Admin: 06/06/24 18:17 Dose: 30 ml Albuterol Sulfate (Albuterol Sulfate 90 Mcg 8 Gm Inhaler) 2 puff INHALE RQ4H PRN PRN Reason: Shortness of Breath Last Admin: 06/09/24 12:47 Dose: 2 puff Calcium Carbonate (Calcium Carbonate 750 Mg Tab.Chew) 750 mg PO Q6H PRN PRN Reason: Heartburn Divalproex Sodium (Divalproex Sodium Er 500 Mg Tab.Er.24h) 1,000 mg PO BEDTIME [facility] Last Admin: 06/12/24 20:03 Dose: 1,000 mg Docusate Sodium (Docusate Sodium 100 Mg Capsule) 100 mg PO BID [facility] Last Admin: 06/13/24 09:32 Dose: 100 mg Hydroxyzine HCl (Hydroxyzine Hcl 25 Mg Tablet) 25 mg PO Q6H PRN PRN Reason: Anxiety Last Admin: 06/06/24 20:07 Dose: 25 mg [place] Carbonate ([place] Carbonate Er 300 Mg Tablet.Er) 600 mg PO BID [facility] Last Admin: 06/13/24 09:33 Dose: 600 mg Loratadine (Loratadine 10 Mg Tablet) 10 mg PO DAILY [facility] Last Admin: 06/13/24 09:33 Dose: 10 mg Lorazepam (Lorazepam 1 Mg Tablet) 1 mg PO Q4H PRN PRN Reason: severe anxiety Last Admin: 06/12/24 02:46 Dose: 1 mg Lorazepam (Lorazepam 1 Mg Tablet) 2 mg PO BEDTIME [facility] Last Admin: 06/12/24 20:03 Dose: 2 mg Magnesium Hydroxide (Milk Of Magnesia 30 Ml Oral.Susp) 30 ml PO DAILY PRN PRN Reason: Constipation Last Admin: 06/04/24 17:38 Dose: 30 ml Nicotine (Nicotine 21 Mg Patch.Td24) 21 mg TRANSDERMA DAILY [facility] Last Admin: 06/13/24 09:35 Dose: Not Given Nicotine Polacrilex (Nicotine Polacrilex 2 Mg Gum) 4 mg BUCCAL Q2H PRN PRN Reason: Nicotine Cravings Olanzapine (Olanzapine 10 Mg Tablet) 30 mg PO BEDTIME [facility] Last Admin: 06/12/24 20:03 Dose: 30 mg Quetiapine Fumarate (Quetiapine Fumarate 100 Mg Tablet) 100 mg PO BEDTIME PRN PRN Reason: insomnia Last Admin: 06/06/24 20:07 Dose: 100 mg Quetiapine Fumarate (Quetiapine Fumarate 300 Mg Tablet) 300 mg PO BEDTIME [facility] Last Admin: 06/12/24 20:04 Dose: 300 mg Simethicone (Simethicone 80 Mg Tab.Chew) 80 mg PO QIDWMHS PRN PRN Reason: Gas Last Admin: 05/31/24 10:34 Dose: 80 mg Allergies Allergies Allergy/AdvReac Type Severity Reaction Status Date / Time morphine Allergy Rash Verified 05/23/24 09:54 oxycodone Allergy Rash Verified 05/23/24 09:54 Assessment & Plan Assessment & Plan (1) Encephalopathy: Qualifiers: Encephalopathy type: unspecified encephalopathy Qualified Code(s): G 93.40 - Encephalopathy, unspecified Status: Acute Code(s): G93.40 - Encephalopathy, unspecified Assessment and Plan: 23 years old man who reported right-sided headache for last few months. He was admitted with 1st episode of psychosis but he also reported that he had been to emergency room and had CT scan of brain done. Apparently that did not reveal any significant abnormality. If his history is correct, an MRI of brain with and without contrast is warranted. (2) Psychosis: Status: Acute Code(s): F29 - Unspecified psychosis not due to a substance or known physiological condition Plan Admit to M3, conditional voluntary, 15 minute checks TSH, B12, Folate, A1C, Lipid Panel Continue Clonidine, Lorazepam prn, Trazodone prn, recent Olanzapine increase Haldol 5 mg bid to target psychotic thought process 05/28: pt refusing haldol. order DCed. reports only feels worse with zyprexa dosing increase. very anxious and tense. agrees to mood stabilizer trial, VPA. also c/o right FERRIS/burning sensation for months, seen by neuro, who recommended MRI. so ordered. 05/29: MRI WNL. slight improvement in anxiety this morning. continue VPA trial. discussed mgmt with pt's mother. 05/30 continue tx. 05/31 continue tx. 06/01: taper zyprexa, titrate seroquel per pt preference. zyprexa to 15 mg tonight, start seroquel at 300 QHS tonight. labs weds ford - VPA. reporting hearing voices telling him they are telepathically communicating with him, but he does not believe it. also reporting non-stop imagery in his head all day. 06/02: poor sleep overnight. keep zyprexa at 15 and increase seroquel to 600. per pt's strong request, start lithium immediately, at 600 BID. check VPA- related labs tomorrow night. remains feeling very uncomfortable. 06/03: DC zyprexa as pt sedated this morning. continue meds otherwise. check labs tonight. 06/04: VPA 95. denies AH, HI, non-stop imagery presently. feeling too heavy, slow, forgetful. notes improvement with start of lithium. agrees to decrease VPA to 1250 and seroquel to 500 at HS. 06/05: c/o poor sleep. positive Sx remain absent. c/o feeling overwhelmed, is fairly flat, some thought disorder appears to be present (poor information retention). asking to increase seroquel back to 600, which is done. also askikng to continue VPA taper, which is agreed to, with VPA being cur back to 1000 mg QHS. labs ordered for saturday night. family mtg held with mother. 06/06: Continue current regimen and plans 06/07: Continue current regimen and plans. Decreased nighttime Seroquel by 200 mg 06/08: reporting resurgence of sense that nothing is real (ie that we inhabit a video game) as well as intrusive HI, starting from saturday. slept well last night, however. concerned it was the DC of zyprexa and start of seroquel that caused the change. asks to start high potency neuroleptic, agrees to begin with fluphenazine 5 mg QHS as of tonight. R/B discussed, incl akathisia and dystonia. draw labs tonight. 06/09: lithium 0.83, VPA 77.7. other labs reassuring. slept well. +intrusive HI thoughts, no AVH. increase prolixin to 5 BID as of tomorrow. decrease seroquel to 300 as of tonight. family mtg had with pt's mother. 06/10: pt notes h/o Spice use, as recently as 1.5 months ago. 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 poor sleep last night, increase seroquel back to 400 mg at HS. 06/11: c/o agitation on prolixin. declines to add cogentin or benadryl. DC prolixin, restart zyprexa 30 mg QHS. decrease seroquel to 300 QHS, plan to taper off entirely. 06/12: declined interview. c/o poor sleep. ativan 2 mg added for HS. otherwise continue current mgmt. 06/13: Continue current treatment plan. Reason for continued inpatient stay Substantial Risk for: med/psych decompensation Time Spent With Patient Time: Total time managing care of this patient today _10___ minutes.
[2024-06-13 20:00] VITALS: BP 129/67; PULSE 80; RESP 16; TEMP 36.9; O2SAT 95
[2024-06-13] MEDS: OLANZapine 10 MG TABLET 30 MG PO (20:38)
[2024-06-13] MEDS: QUEtiapine Fumarate 300 MG TABLET PO (20:39)
[2024-06-13] MEDS: LORazepam 1 MG TABLET 2 MG PO (20:39)
[2024-06-13] MEDS: Divalproex Sodium ER 500 MG TAB.ER.24H 1000 MG PO (20:39)
--- NOTE | 2024-06-14 09:01 | HO.PSYCHPN ---
Subjective Subjective Date of Service: 06/14/24 Reason For Visit: HI/psychosis Subjective Notes: Conditional Voluntary Interim History: Reviewed with Dr. Fitzgerald. Guarded. Patient reports feeling good today; does not report any issues. Patient stated, I like to keep to myself. I just want asleep . Denies SI/HI/VH/AH. Per nursing, patient has been lying in bed most of the day and refusing to shower. Medication Compliance: Yes Side effects from medications: No Attending Groups: No Review of Systems Constitutional: Reports as per HPI Eyes: Reports as per HPI Reports as per HPI Cardiovascular: Reports as per HPI Respiratory: Reports as per HPI Gastrointestinal: Reports as per HPI Genitourinary: Reports as per HPI Musculoskeletal: Reports as per HPI Skin/Breast: Reports as per HPI Reports as per HPI Psychiatric: Reports as per HPI Endocrine: Reports as per HPI Hematologic/Lymphatic: Reports as per HPI Allergic/Immunologic: Reports as per HPI Mental Status Exam Mental Status Exam Patient Appearance: Appropriate Patient Orientation: Person, Place and Situation Level of Consciousness: Awake Patient Behavior: Guarded Mood Description: Calm Affect Description: Blunted Patient Cognition Impaired: No Ability to Follow Directions: Good Speech Pattern: Soft-Spoken and Mumbled Memory Description: Intact Diagnostics Vital Signs (24Hr): Vital Signs - 24 hr 06/13/24 20:00 Temperature 98.5 F Pulse Rate 80 Respiratory Rate 16 Blood Pressure 129/67 Pulse Oximetry 95 Oxygen Delivery Method Room Air BMI result Body Mass Index 25.7 Labs 06/03/24 20:38 06/08/24 19:55 Imaging Radiology Impressions: ITS Impressions Chest X-Ray 05/24/24 16:15 IMPRESSION: No evidence of acute disease Electronically signed by: Cholo Lopez MD 05/24/2024 04:32 PM EDT RP Brain MRI 05/29/24 11:29 IMPRESSION: Unremarkable contrast enhanced MRI of the brain. Electronically signed by: Misha Spears MD 05/29/2024 12:43 PM EDT RP Medications Medications Current Medications Acetaminophen (Acetaminophen 325 Mg Tablet) 650 mg PO Q6H PRN PRN Reason: Headache/Pain Mild Scale (1-3) Last Admin: 06/06/24 12:15 Dose: 650 mg Al Hydroxide/Mg Hydroxide (Magnesium Hydrox/Alum Hydrox 30 Ml Oral.Susp) 30 ml PO Q6H PRN PRN Reason: Heartburn/Nausea Last Admin: 06/06/24 18:17 Dose: 30 ml Albuterol Sulfate (Albuterol Sulfate 90 Mcg 8 Gm Inhaler) 2 puff INHALE RQ4H PRN PRN Reason: Shortness of Breath Last Admin: 06/09/24 12:47 Dose: 2 puff Calcium Carbonate (Calcium Carbonate 750 Mg Tab.Chew) 750 mg PO Q6H PRN PRN Reason: Heartburn Divalproex Sodium (Divalproex Sodium Er 500 Mg Tab.Er.24h) 1,000 mg PO BEDTIME [facility] [place] Last Admin: 06/13/24 20:39 Dose: 1,000 mg Docusate Sodium (Docusate Sodium 100 Mg Capsule) 100 mg PO BID [facility] [place] Last Admin: 06/13/24 20:39 Dose: 100 mg Hydroxyzine HCl (Hydroxyzine Hcl 25 Mg Tablet) 25 mg PO Q6H PRN PRN Reason: Anxiety Last Admin: 06/06/24 20:07 Dose: 25 mg [place] Carbonate ([place] Carbonate Er 300 Mg Tablet.Er) 600 mg PO BID [facility] [place] Last Admin: 06/13/24 20:39 Dose: 600 mg Loratadine (Loratadine 10 Mg Tablet) 10 mg PO DAILY [facility] [place] Last Admin: 06/13/24 09:33 Dose: 10 mg Lorazepam (Lorazepam 1 Mg Tablet) 1 mg PO Q4H PRN PRN Reason: severe anxiety Last Admin: 06/12/24 02:46 Dose: 1 mg Lorazepam (Lorazepam 1 Mg Tablet) 2 mg PO BEDTIME [facility] [place] Last Admin: 06/13/24 20:39 Dose: 2 mg Magnesium Hydroxide (Milk Of Magnesia 30 Ml Oral.Susp) 30 ml PO DAILY PRN PRN Reason: Constipation Last Admin: 06/04/24 17:38 Dose: 30 ml Nicotine (Nicotine 21 Mg Patch.Td24) 21 mg TRANSDERMA DAILY [facility] [place] Last Admin: 06/13/24 09:35 Dose: Not Given Nicotine Polacrilex (Nicotine Polacrilex 2 Mg Gum) 4 mg BUCCAL Q2H PRN PRN Reason: Nicotine Cravings Olanzapine (Olanzapine 10 Mg Tablet) 30 mg PO BEDTIME [facility] [place] Last Admin: 06/13/24 20:38 Dose: 30 mg Quetiapine Fumarate (Quetiapine Fumarate 100 Mg Tablet) 100 mg PO BEDTIME PRN PRN Reason: insomnia Last Admin: 06/06/24 20:07 Dose: 100 mg Quetiapine Fumarate (Quetiapine Fumarate 300 Mg Tablet) 300 mg PO BEDTIME [facility] Last Admin: 06/13/24 20:39 Dose: 300 mg Simethicone (Simethicone 80 Mg Tab.Chew) 80 mg PO QIDWMHS PRN PRN Reason: Gas Last Admin: 05/31/24 10:34 Dose: 80 mg Allergies Allergies Allergy/AdvReac Type Severity Reaction Status Date / Time morphine Allergy Rash Verified 05/23/24 09:54 oxycodone Allergy Rash Verified 05/23/24 09:54 Assessment & Plan Assessment & Plan (1) Encephalopathy: Qualifiers: Encephalopathy type: unspecified encephalopathy Qualified Code(s): G93.40 - Encephalopathy, unspecified Status: Acute Code(s): G93.40 - Encephalopathy, unspecified Assessment and Plan: 23 years old man who reported right-sided headache for last few months. He was admitted with 1st episode of psychosis but he also reported that he had been to emergency room and had CT scan of brain done. Apparently that did not reveal any significant abnormality. If his history is correct, an MRI of brain with and without contrast is warranted. (2) Psychosis: Status: Acute Code(s): F29 - Unspecified psychosis not due to a substance or known physiological condition Plan Admit to M3, conditional voluntary, 15 minute checks TSH, B12, Folate, A1C, Lipid Panel Continue Clonidine, Lorazepam prn, Trazodone prn, recent Olanzapine increase Haldol 5 mg bid to target psychotic thought process 05/28: pt refusing haldol. order DCed. reports only feels worse with zyprexa dosing increase. very anxious and tense. agrees to mood stabilizer trial, VPA. also c/o right FERRIS/burning sensation for months, seen by neuro, who recommended MRI. so ordered. 05/29: MRI WNL. slight improvement in anxiety this morning. continue VPA trial. discussed mgmt with pt's mother. 05/30 continue tx. 05/31 continue tx. 06/01: taper zyprexa, titrate seroquel per pt preference. zyprexa to 15 mg tonight, start seroquel at 300 QHS tonight. labs weds ford - VPA. reporting hearing voices telling him they are telepathically communicating with him, but he does not believe it. also reporting non-stop imagery in his head all day. 06/02: poor sleep overnight. keep zyprexa at 15 and increase seroquel to 600. per pt's strong request, start lithium immediately, at 600 BID. check VPA-related labs tomorrow night. remains feeling very uncomfortable. 06/03: DC zyprexa as pt sedated this morning. continue meds otherwise. check labs tonight. 06/04: VPA 95. denies AH, HI, non-stop imagery presently. feeling too heavy, slow, forgetful. notes improvement with start of lithium. agrees to decrease VPA to 1250 and seroquel to 500 at HS. 06/05: c/o poor sleep. positive Sx remain absent. c/o feeling overwhelmed, is fairly flat, some thought disorder appears to be present (poor information retention). asking to increase seroquel back to 600, which is done. also askikng to continue VPA taper, which is agreed to, with VPA being cur back to 1000 mg QHS. labs ordered for saturday night. family mtg held with mother. 06/06: Continue current regimen and plans 06/07: Continue current regimen and plans. Decreased nighttime Seroquel by 200 mg 06/08: reporting resurgence of sense that nothing is real (ie that we inhabit a video game) as well as intrusive HI, starting from saturday. slept well last night, however. concerned it was the DC of zyprexa and start of seroquel that caused the change. asks to start high potency neuroleptic, agrees to begin with fluphenazine 5 mg QHS as of tonight. R/B discussed, incl akathisia and dystonia. draw labs tonight. 06/09: lithium 0.83, VPA 77.7. other labs reassuring. slept well. +intrusive HI thoughts, no AVH. increase prolixin to 5 BID as of tomorrow. decrease seroquel to 300 as of tonight. family mtg had with pt's mother. 06/10: pt notes h/o Spice use, as recently as 1.5 months ago. 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 poor sleep last night, increase seroquel back to 400 mg at HS. 06/11: c/o agitation on prolixin. declines to add cogentin or benadryl. DC prolixin, restart zyprexa 30 mg QHS. decrease seroquel to 300 QHS, plan to taper off entirely. 06/12: declined interview. c/o poor sleep. ativan 2 mg added for HS. otherwise continue current mgmt. 06/13: Continue current treatment plan. 06/14: Guarded. Patient reports feeling good today; does not report any issues. Patient stated, I like to keep to myself. I just want asleep . Denies SI/HI/VH/AH. Per nursing, patient has been lying in bed most of the day and refusing to shower. Continue current treatment plan. Patient educated on: medication risk/benefits Reason for continued inpatient stay Substantial Risk for: med/psych decompensation Time Spent With Patient Time: Total time managing care of this patient today _20___ minutes.
[2024-06-14 10:45] VITALS: BP 129/84; PULSE 83; RESP 18; TEMP 36.3; O2SAT 99
[2024-06-14] MEDS: Loratadine 10 MG TABLET PO (11:00)
[2024-06-14] MEDS: Docusate Sodium 100 MG CAPSULE PO ×2 (11:00→20:24)
[2024-06-14] MEDS: Lithium Carbonate ER 300 MG TABLET.ER 600 MG PO ×2 (11:00→20:24)
[2024-06-14 20:00] VITALS: BP 135/81; PULSE 114; RESP 18; TEMP 36.9; O2SAT 95
[2024-06-14] MEDS: Divalproex Sodium ER 500 MG TAB.ER.24H 1000 MG PO (20:23)
[2024-06-14] MEDS: LORazepam 1 MG TABLET 2 MG PO (20:23)
[2024-06-14] MEDS: OLANZapine 10 MG TABLET 30 MG PO (20:23)
[2024-06-14] MEDS: QUEtiapine Fumarate 300 MG TABLET PO (20:24)
[2024-06-15 07:50] VITALS: BP 116/67; PULSE 67; RESP 14; TEMP 36.9; O2SAT 99
[2024-06-15] MEDS: Loratadine 10 MG TABLET PO (08:34)
[2024-06-15] MEDS: Docusate Sodium 100 MG CAPSULE PO ×2 (08:35→20:19)
[2024-06-15] MEDS: Lithium Carbonate ER 300 MG TABLET.ER 600 MG PO ×2 (08:35→20:20)
--- NOTE | 2024-06-15 16:36 | P.PNPSI_ITS ---
Subjective Subjective Date of Service: 06/15/24 Reason For Visit: HI/psychosis Interim History: seen in his room briefly. declined to come out for interview. declined any medication changes. proposed we meet tomorrow. per staff, isolative. taking meds. flat. racing thoughts. poor concentration. slept 7 hours but c/o poor sleep. Mental Status Exam Mental Status Exam Narrative: adequately dressed and groomed. cooperative but declining interview. no PMA/PMR. speech nml rate, amount, loudness, latency. flattened tone. thoughts linear and logical; thought disorder appears improved, better executive and memory function. affect flat. mood anxious. no SI/HI/AVH expressed. Diagnostics Vital Signs (24Hr): Vital Signs - 24 hr 06/14/24 20:00 06/15/24 07:50 Temperature 98.4 F 98.4 F Pulse Rate 114 H 67 Respiratory Rate 18 14 Blood Pressure 135/81 116/67 Pulse Oximetry 95 99 Oxygen Delivery Method Room Air Room Air BMI result Body Mass Index 25.7 Labs 06/03/24 20:38 06/08/24 19:55 Imaging Radiology Impressions: ITS Impressions Chest X-Ray 05/24/24 16:15 IMPRESSION: No evidence of acute disease Electronically signed by: Cholo Lopez MD 05/24/2024 04:32 PM EDT RP Brain MRI 05/29/24 11:29 IMPRESSION: Unremarkable contrast enhanced MRI of the brain. Electronically signed by: Misha Spears MD 05/29/2024 12:43 PM EDT RP Medications Medications Current Medications Acetaminophen (Acetaminophen 325 Mg Tablet) 650 mg PO Q6H PRN PRN Reason: Headache/Pain Mild Scale (1-3) Last Admin: 06/06/24 12:15 Dose: 650 mg Al Hydroxide/Mg Hydroxide (Magnesium Hydrox/Alum Hydrox 30 Ml Oral.Susp) 30 ml PO Q6H PRN PRN Reason: Heartburn/Nausea Last Admin: 06/06/24 18:17 Dose: 30 ml Albuterol Sulfate (Albuterol Sulfate 90 Mcg 8 Gm Inhaler) 2 puff INHALE RQ4H PRN PRN Reason: Shortness of Breath Last Admin: 06/09/24 12:47 Dose: 2 puff Calcium Carbonate (Calcium Carbonate 750 Mg Tab.Chew) 750 mg PO Q6H PRN PRN Reason: Heartburn Divalproex Sodium (Divalproex Sodium Er 500 Mg Tab.Er.24h) 1,000 mg PO BEDTIME [facility] Last Admin: 06/14/24 20:23 Dose: 1,000 mg Docusate Sodium (Docusate Sodium 100 Mg Capsule) 100 mg PO BID [facility] Last Admin: 06/15/24 08:35 Dose: 100 mg Hydroxyzine HCl (Hydroxyzine Hcl 25 Mg Tablet) 25 mg PO Q6H PRN PRN Reason: Anxiety Last Admin: 06/06/24 20:07 Dose: 25 mg [place] Carbonate ([place] Carbonate Er 300 Mg Tablet.Er) 600 mg PO BID [facility] Last Admin: 06/15/24 08:35 Dose: 600 mg Loratadine (Loratadine 10 Mg Tablet) 10 mg PO DAILY [facility] Last Admin: 06/15/24 08:34 Dose: 10 mg Lorazepam (Lorazepam 1 Mg Tablet) 1 mg PO Q4H PRN PRN Reason: severe anxiety Last Admin: 06/12/24 02:46 Dose: 1 mg Lorazepam (Lorazepam 1 Mg Tablet) 2 mg PO BEDTIME [facility] Last Admin: 06/14/24 20:23 Dose: 2 mg Magnesium Hydroxide (Milk Of Magnesia 30 Ml Oral.Susp) 30 ml PO DAILY PRN PRN Reason: Constipation Last Admin: 06/04/24 17:38 Dose: 30 ml Nicotine (Nicotine 21 Mg Patch.Td24) 21 mg TRANSDERMA DAILY [facility] Last Admin: 06/15/24 08:37 Dose: Not Given Nicotine Polacrilex (Nicotine Polacrilex 2 Mg Gum) 4 mg BUCCAL Q2H PRN PRN Reason: Nicotine Cravings Olanzapine (Olanzapine 10 Mg Tablet) 30 mg PO BEDTIME [facility] Last Admin: 06/14/24 20:23 Dose: 30 mg Quetiapine Fumarate (Quetiapine Fumarate 100 Mg Tablet) 100 mg PO BEDTIME PRN PRN Reason: insomnia Last Admin: 06/06/24 20:07 Dose: 100 mg Quetiapine Fumarate (Quetiapine Fumarate 300 Mg Tablet) 300 mg PO BEDTIME [facility] Last Admin: 06/14/24 20:24 Dose: 300 mg Simethicone (Simethicone 80 Mg Tab.Chew) 80 mg PO QIDWMHS PRN PRN Reason: Gas Last Admin: 05/31/24 10:34 Dose: 80 mg Allergies Allergies Allergy/AdvReac Type Severity Reaction Status Date / Time morphine Allergy Rash Verified 05/23/24 09:54 oxycodone Allergy Rash Verified 05/23/24 09:54 Assessment & Plan Assessment & Plan (1) Encephalopathy: Qualifiers: Encephalopathy type: unspecified encephalopathy Qualified Code(s): G 93.40 - Encephalopathy, unspecified Status: Acute Code(s): G93.40 - Encephalopathy, unspecified Assessment and Plan: 23 years old man who reported right-sided headache for last few months. He was admitted with 1st episode of psychosis but he also reported that he had been to emergency room and had CT scan of brain done. Apparently that did not reveal any significant abnormality. If his history is correct, an MRI of brain with and without contrast is warranted. (2) Psychosis: Status: Acute Code(s): F29 - Unspecified psychosis not due to a substance or known physiological condition Plan Admit to M3, conditional voluntary, 15 minute checks TSH, B12, Folate, A1C, Lipid Panel Continue Clonidine, Lorazepam prn, Trazodone prn, recent Olanzapine increase Haldol 5 mg bid to target psychotic thought process 05/28: pt refusing haldol. order DCed. reports only feels worse with zyprexa dosing increase. very anxious and tense. agrees to mood stabilizer trial, VPA. also c/o right FERRIS/burning sensation for months, seen by neuro, who recommended MRI. so ordered. 05/29: MRI WNL. slight improvement in anxiety this morning. continue VPA trial. discussed mgmt with pt's mother. 05/30 continue tx. 05/31 continue tx. 06/01: taper zyprexa, titrate seroquel per pt preference. zyprexa to 15 mg tonight, start seroquel at 300 QHS tonight. labs weds ford - VPA. reporting hearing voices telling him they are telepathically communicating with him, but he does not believe it. also reporting non-stop imagery in his head all day. 06/02: poor sleep overnight. keep zyprexa at 15 and increase seroquel to 600. per pt's strong request, start lithium immediately, at 600 BID. check VPA- related labs tomorrow night. remains feeling very uncomfortable. 06/03: DC zyprexa as pt sedated this morning. continue meds otherwise. check labs tonight. 06/04: VPA 95. denies AH, HI, non-stop imagery presently. feeling too heavy, slow, forgetful. notes improvement with start of lithium. agrees to decrease VPA to 1250 and seroquel to 500 at HS. 06/05: c/o poor sleep. positive Sx remain absent. c/o feeling overwhelmed, is fairly flat, some thought disorder appears to be present (poor information retention). asking to increase seroquel back to 600, which is done. also askikng to continue VPA taper, which is agreed to, with VPA being cur back to 1000 mg QHS. labs ordered for saturday night. family mtg held with mother. 06/06: Continue current regimen and plans 06/07: Continue current regimen and plans. Decreased nighttime Seroquel by 200 mg 06/08: reporting resurgence of sense that nothing is real (ie that we inhabit a video game) as well as intrusive HI, starting from saturday. slept well last night, however. concerned it was the DC of zyprexa and start of seroquel that caused the change. asks to start high potency neuroleptic, agrees to begin with fluphenazine 5 mg QHS as of tonight. R/B discussed, incl akathisia and dystonia. draw labs tonight. 06/09: lithium 0.83, VPA 77.7. other labs reassuring. slept well. +intrusive HI thoughts, no AVH. increase prolixin to 5 BID as of tomorrow. decrease seroquel to 300 as of tonight. family mtg had with pt's mother. 06/10: pt notes h/o Spice use, as recently as 1.5 months ago. 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 poor sleep last night, increase seroquel back to 400 mg at HS. 06/11: c/o agitation on prolixin. declines to add cogentin or benadryl. DC prolixin, restart zyprexa 30 mg QHS. decrease seroquel to 300 QHS, plan to taper off entirely. 06/12: declined interview. c/o poor sleep. ativan 2 mg added for HS. otherwise continue current mgmt. 06/13: Continue current treatment plan. 06/14: Guarded. Patient reports feeling good today; does not report any issues. Patient stated, I like to keep to myself. I just want asleep . Denies SI/HI/VH/AH. Per nursing, patient has been lying in bed most of the day and refusing to shower. Continue current treatment plan. 06/15: no change. declines interview. continue current mgmt. Reason for continued inpatient stay Substantial Risk for: harm to self, harm to others and inability to function Time Spent With Patient Time: Total time managing care of this patient today ____ minutes.
[2024-06-15 20:00] VITALS: BP 129/72; PULSE 87; RESP 16; TEMP 37; O2SAT 97
[2024-06-15] MEDS: QUEtiapine Fumarate 300 MG TABLET PO (20:19)
[2024-06-15] MEDS: OLANZapine 10 MG TABLET 30 MG PO (20:19)
[2024-06-15] MEDS: Divalproex Sodium ER 500 MG TAB.ER.24H 1000 MG PO (20:19)
[2024-06-15] MEDS: LORazepam 1 MG TABLET 2 MG PO (20:19)
[2024-06-16 07:15] VITALS: BP 116/64; PULSE 75; RESP 16; TEMP 36.6; O2SAT 97
[2024-06-16 07:55] VITALS: BP 115/71; PULSE 82; RESP 14; TEMP 36.7; O2SAT 98
[2024-06-16] MEDS: Lithium Carbonate ER 300 MG TABLET.ER 600 MG PO (08:32)
[2024-06-16] MEDS: Docusate Sodium 100 MG CAPSULE PO ×2 (08:32→20:34)
[2024-06-16] MEDS: Loratadine 10 MG TABLET PO (08:32)
--- NOTE | 2024-06-16 13:56 | P.PNPSI_ITS ---
Subjective Subjective Date of Service: 06/16/24 Reason For Visit: HI/psychosis Interim History: declined to get out of bed or remove blanket from face. stated he did not wish to meet today but would meet tomorrow. pressed pt, as this is what pt had said yesterday. pt reports he was not feeling well, and that it was physical. was then unable to describe in what way he was not feeling physically well. agreed to begin taper of mood stabilizers. per staff, withdrawn. difficult to engage. denies intrusive thoughts. slept 7 hours. Mental Status Exam Mental Status Exam Narrative: adequately dressed and groomed. cooperative but declining interview. no PMA/PMR. speech nml rate, amount, loudness, latency. flattened tone. thoughts linear and logical; thought disorder appears improved, better executive and memory function. mood anxious. no SI/HI/AVH expressed. Diagnostics Vital Signs (24Hr): Vital Signs - 24 hr 06/15/24 20:00 06/16/24 07:15 Temperature 98.6 F 97.8 F Pulse Rate 87 75 Respiratory Rate 16 16 Blood Pressure 129/72 116/64 Pulse Oximetry 97 97 Oxygen Delivery Method Room Air Room Air BMI result Body Mass Index 25.7 Labs 06/03/24 20:38 06/08/24 19:55 Imaging Radiology Impressions: ITS Impressions Chest X-Ray 05/24/24 16:15 IMPRESSION: No evidence of acute disease Electronically signed by: Cholo Lopez MD 05/24/2024 04:32 PM EDT Brain MRI 05/29/24 11:29 IMPRESSION: Unremarkable contrast enhanced MRI of the brain. Electronically signed by: Misha Spears MD 05/29/2024 12:43 PM EDT RP Medications Medications Current Medications Acetaminophen (Acetaminophen 325 Mg Tablet) 650 mg PO Q6H PRN PRN Reason: Headache/Pain Mild Scale (1-3) Last Admin: 06/06/24 12:15 Dose: 650 mg Al Hydroxide/Mg Hydroxide (Magnesium Hydrox/Alum Hydrox 30 Ml Oral.Susp) 30 ml PO Q6H PRN PRN Reason: Heartburn/Nausea Last Admin: 06/06/24 18:17 Dose: 30 ml Albuterol Sulfate (Albuterol Sulfate 90 Mcg 8 Gm Inhaler) 2 puff INHALE RQ4H PRN PRN Reason: Shortness of Breath Last Admin: 06/09/24 12:47 Dose: 2 puff Calcium Carbonate (Calcium Carbonate 750 Mg Tab.Chew) 750 mg PO Q6H PRN PRN Reason: Heartburn Divalproex Sodium (Divalproex Sodium Er 250 Mg Tab.Er.24h) 750 mg PO BEDTIME [facility] Docusate Sodium (Docusate Sodium 100 Mg Capsule) 100 mg PO BID [facility] Last Admin: 06/16/24 08:32 Dose: 100 mg Hydroxyzine HCl (Hydroxyzine Hcl 25 Mg Tablet) 25 mg PO Q6H PRN PRN Reason: Anxiety Last Admin: 06/06/24 20:07 Dose: 25 mg [place] Carbonate ([place] Carbonate Er 300 Mg Tablet.Er) 600 mg PO DAILY [facility] [place] Carbonate ([place] Carbonate Er 450 Mg Tablet.Er) 450 mg PO BEDTIME [facility] Loratadine (Loratadine 10 Mg Tablet) 10 mg PO DAILY [facility] Last Admin: 06/16/24 08:32 Dose: 10 mg Lorazepam (Lorazepam 1 Mg Tablet) 1 mg PO Q4H PRN PRN Reason: severe anxiety Last Admin: 06/12/24 02:46 Dose: 1 mg Lorazepam (Lorazepam 1 Mg Tablet) 2 mg PO BEDTIME [facility] Last Admin: 06/15/24 20:19 Dose: 2 mg Magnesium Hydroxide (Milk Of Magnesia 30 Ml Oral.Susp) 30 ml PO DAILY PRN PRN Reason: Constipation Last Admin: 06/04/24 17:38 Dose: 30 ml Nicotine (Nicotine 21 Mg Patch.Td24) 21 mg TRANSDERMA DAILY [facility] Last Admin: 06/16/24 08:33 Dose: Not Given Nicotine Polacrilex (Nicotine Polacrilex 2 Mg Gum) 4 mg BUCCAL Q2H PRN PRN Reason: Nicotine Cravings Olanzapine (Olanzapine 10 Mg Tablet) 30 mg PO BEDTIME [facility] Last Admin: 06/15/24 20:19 Dose: 30 mg Quetiapine Fumarate (Quetiapine Fumarate 100 Mg Tablet) 100 mg PO BEDTIME PRN PRN Reason: insomnia Last Admin: 06/06/24 20:07 Dose: 100 mg Quetiapine Fumarate (Quetiapine Fumarate 300 Mg Tablet) 300 mg PO BEDTIME [facility] Last Admin: 06/15/24 20:19 Dose: 300 mg Simethicone (Simethicone 80 Mg Tab.Chew) 80 mg PO QIDWMHS PRN PRN Reason: Gas Last Admin: 05/31/24 10:34 Dose: 80 mg Allergies Allergies Allergy/AdvReac Type Severity Reaction Status Date / Time morphine Allergy Rash Verified 05/23/24 09:54 oxycodone Allergy Rash Verified 05/23/24 09:54 Assessment & Plan Assessment & Plan (1) Encephalopathy: Qualifiers: Encephalopathy type: unspecified encephalopathy Qualified Code(s): G 93.40 - Encephalopathy, unspecified Status: Acute Code(s): G93.40 - Encephalopathy, unspecified Assessment and Plan: 23 years old man who reported right-sided headache for last few months. He was admitted with 1st episode of psychosis but he also reported that he had been to emergency room and had CT scan of brain done. Apparently that did not reveal any significant abnormality. If his history is correct, an MRI of brain with and without contrast is warranted. (2) Psychosis: Status: Acute Code(s): F29 - Unspecified psychosis not due to a substance or known physiological condition Plan Admit to M3, conditional voluntary, 15 minute checks TSH, B12, Folate, A1C, Lipid Panel Continue Clonidine, Lorazepam prn, Trazodone prn, recent Olanzapine increase Haldol 5 mg bid to target psychotic thought process 05/28: pt refusing haldol. order DCed. reports only feels worse with zyprexa dosing increase. very anxious and tense. agrees to mood stabilizer trial, VPA. also c/o right FERRIS/burning sensation for months, seen by neuro, who recommended MRI. so ordered. 05/29: MRI WNL. slight improvement in anxiety this morning. continue VPA trial. discussed mgmt with pt's mother. 05/30 continue tx. 05/31 continue tx. 06/01: taper zyprexa, titrate seroquel per pt preference. zyprexa to 15 mg tonight, start seroquel at 300 QHS tonight. labs wed ford - VPA. reporting hearing voices telling him they are telepathically communicating with him, but he does not believe it. also reporting non-stop imagery in his head all day. 06/02: poor sleep overnight. keep zyprexa at 15 and increase seroquel to 600. per pt's strong request, start lithium immediately, at 600 BID. check VPA- related labs tomorrow night. remains feeling very uncomfortable. 06/03: DC zyprexa as pt sedated this morning. continue meds otherwise. check labs tonight. 06/04: VPA 95. denies AH, HI, non-stop imagery presently. feeling too heavy, slow, forgetful. notes improvement with start of lithium. agrees to decrease VPA to 1250 and seroquel to 500 at HS. 06/05: c/o poor sleep. positive Sx remain absent. c/o feeling overwhelmed, is fairly flat, some thought disorder appears to be present (poor information retention). asking to increase seroquel back to 600, which is done. also askikng to continue VPA taper, which is agreed to, with VPA being cur back to 1000 mg QHS. labs ordered for saturday night. family mtg held with mother. 06/06: Continue current regimen and plans 06/07: Continue current regimen and plans. Decreased nighttime Seroquel by 200 mg 06/08: reporting resurgence of sense that nothing is real (ie that we inhabit a video game) as well as intrusive HI, starting from saturday. slept well last night, however. concerned it was the DC of zyprexa and start of seroquel that caused the change. asks to start high potency neuroleptic, agrees to begin with fluphenazine 5 mg QHS as of tonight. R/B discussed, incl akathisia and dystonia. draw labs tonight. 06/09: lithium 0.83, VPA 77.7. other labs reassuring. slept well. +intrusive HI thoughts, no AVH. increase prolixin to 5 BID as of tomorrow. decrease seroquel to 300 as of tonight. family mtg had with pt's mother. 06/10: pt notes h/o Spice use, as recently as 1.5 months ago. 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 poor sleep last night, increase seroquel back to 400 mg at HS. 06/11: c/o agitation on prolixin. declines to add cogentin or benadryl. DC prolixin, restart zyprexa 30 mg QHS. decrease seroquel to 300 QHS, plan to taper off entirely. 06/12: declined interview. c/o poor sleep. ativan 2 mg added for HS. otherwise continue current mgmt. 06/13: Continue current treatment plan. 06/14: Guarded. Patient reports feeling good today; does not report any issues. Patient stated, I like to keep to myself. I just want asleep . Denies SI/HI/VH/AH. Per nursing, patient has been lying in bed most of the day and refusing to shower. Continue current treatment plan. 06/15: no change. declines interview. continue current mgmt. 06/16: no change. declines interview. begin taper of VPA and lithium. VPA from 1000 mg to 750 mg tonight. lithium from 1200 mg daily to 1050 mg daily as of tomorrow. otherwise continue current mgmt. Reason for continued inpatient stay Substantial Risk for: inability to function Time Spent With Patient Time: Total time managing care of this patient today __25__ minutes.
[2024-06-16 19:35] VITALS: BP 117/55; PULSE 96; RESP 18; TEMP 37.2; O2SAT 97
[2024-06-16] MEDS: OLANZapine 10 MG TABLET 30 MG PO (20:33)
[2024-06-16] MEDS: Lithium Carbonate ER 450 MG TABLET.ER PO (20:33)
[2024-06-16] MEDS: QUEtiapine Fumarate 300 MG TABLET PO (20:33)
[2024-06-16] MEDS: LORazepam 1 MG TABLET 2 MG PO (20:33)
[2024-06-16] MEDS: Divalproex Sodium ER 250 MG TAB.ER.24H 750 MG PO (20:34)
[2024-06-17 08:00] VITALS: BP 115/71; PULSE 82; RESP 14; TEMP 36.6; O2SAT 98
[2024-06-17] MEDS: Docusate Sodium 100 MG CAPSULE PO ×2 (09:56→20:28)
[2024-06-17] MEDS: Lithium Carbonate ER 300 MG TABLET.ER 600 MG PO (09:56)
[2024-06-17] MEDS: Loratadine 10 MG TABLET PO (09:56)
--- NOTE | 2024-06-17 14:04 | P.PNPSI_ITS ---
Subjective Subjective Date of Service: 06/17/24 Reason For Visit: HI/psychosis Interim History: remaining in bed, declining to get up, blanket pulled over face. denies intrusive thoughts, visual imagery, or AH. states he just does not feel well and cannot elaborate. appears to be sedated, states he is tired. per staff, taking meds. difficult to engage. denies intrusive thoughts, AVH. slept all NOC. Mental Status Exam Mental Status Exam Narrative: under blanket in bed. cooperative but declining interview. no PMA/PMR. speech nml rate, amount, loudness, latency. flattened tone. thoughts linear and logical; thought disorder appears improved, better executive and memory function. mood anxious. no SI/HI/VH expressed. denies AH. Diagnostics Vital Signs (24Hr): Vital Signs - 24 hr 06/16/24 19:35 06/17/24 08:00 Temperature 98.9 F 98 F Pulse Rate 96 82 Respiratory Rate 18 14 Blood Pressure 117/55 L 115/71 Pulse Oximetry 97 98 Oxygen Delivery Method Room Air Room Air BMI result Body Mass Index 25.7 Labs 06/03/24 20:38 06/08/24 19:55 Imaging Radiology Impressions: ITS Impressions Chest X-Ray 05/24/24 16:15 IMPRESSION: No evidence of acute disease Electronically signed by: Cholo Lopez MD 05/24/2024 04:32 PM EDT RP Brain MRI 05/29/24 11:29 IMPRESSION: Unremarkable contrast enhanced MRI of the brain. Electronically signed by: Misha Spears MD 05/29/2024 12:43 PM EDT RP Medications Medications Current Medications Acetaminophen (Acetaminophen 325 Mg Tablet) 650 mg PO Q6H PRN PRN Reason: Headache/Pain Mild Scale (1-3) Last Admin: 06/06/24 12:15 Dose: 650 mg Al Hydroxide/Mg Hydroxide (Magnesium Hydrox/Alum Hydrox 30 Ml Oral.Susp) 30 ml PO Q6H PRN PRN Reason: Heartburn/Nausea Last Admin: 06/06/24 18:17 Dose: 30 ml Albuterol Sulfate (Albuterol Sulfate 90 Mcg 8 Gm Inhaler) 2 puff INHALE RQ4H PRN PRN Reason: Shortness of Breath Last Admin: 06/09/24 12:47 Dose: 2 puff Calcium Carbonate (Calcium Carbonate 750 Mg Tab.Chew) 750 mg PO Q6H PRN PRN Reason: Heartburn Divalproex Sodium (Divalproex Sodium Er 500 Mg Tab.Er.24h) 500 mg PO BEDTIME RAVEN Docusate Sodium (Docusate Sodium 100 Mg Capsule) 100 mg PO BID [facility] Last Admin: 06/17/24 09:56 Dose: 100 mg Hydroxyzine HCl (Hydroxyzine Hcl 25 Mg Tablet) 25 mg PO Q6H PRN PRN Reason: Anxiety Last Admin: 06/06/24 20:07 Dose: 25 mg [place] Carbonate ([place] Carbonate Er 450 Mg Tablet.Er) 450 mg PO BID [facility] Loratadine (Loratadine 10 Mg Tablet) 10 mg PO DAILY [facility] Last Admin: 06/17/24 09:56 Dose: 10 mg Lorazepam (Lorazepam 1 Mg Tablet) 1 mg PO Q4H PRN PRN Reason: severe anxiety Last Admin: 06/12/24 02:46 Dose: 1 mg Lorazepam (Lorazepam 1 Mg Tablet) 2 mg PO BEDTIME RAVEN Last Admin: 06/16/24 20:33 Dose: 2 mg Magnesium Hydroxide (Milk Of Magnesia 30 Ml Oral.Susp) 30 ml PO DAILY PRN PRN Reason: Constipation Last Admin: 06/04/24 17:38 Dose: 30 ml Nicotine (Nicotine 21 Mg Patch.Td24) 21 mg TRANSDERMA DAILY [facility] Last Admin: 06/17/24 09:57 Dose: Not Given Nicotine Polacrilex (Nicotine Polacrilex 2 Mg Gum) 4 mg BUCCAL Q2H PRN PRN Reason: Nicotine Cravings Olanzapine (Olanzapine 10 Mg Tablet) 30 mg PO BEDTIME RAVEN Last Admin: 06/16/24 20:33 Dose: 30 mg Quetiapine Fumarate (Quetiapine Fumarate 100 Mg Tablet) 100 mg PO BEDTIME PRN PRN Reason: insomnia Last Admin: 06/06/24 20:07 Dose: 100 mg Quetiapine Fumarate (Quetiapine Fumarate 200 Mg Tablet) 200 mg PO BEDTIME RAVEN Simethicone (Simethicone 80 Mg Tab.Chew) 80 mg PO QIDWMHS PRN PRN Reason: Gas Last Admin: 05/31/24 10:34 Dose: 80 mg Allergies Allergies Allergy/AdvReac Type Severity Reaction Status Date / Time morphine Allergy Rash Verified 05/23/24 09:54 oxycodone Allergy Rash Verified 05/23/24 09:54 Assessment & Plan Assessment & Plan (1) Encephalopathy: Qualifiers: Encephalopathy type: unspecified encephalopathy Qualified Code(s): G 93.40 - Encephalopathy, unspecified Status: Acute Code(s): G93.40 - Encephalopathy, unspecified Assessment and Plan: 23 years old man who reported right-sided headache for last few months. He was admitted with 1st episode of psychosis but he also reported that he had been to emergency room and had CT scan of brain done. Apparently that did not reveal any significant abnormality. If his history is correct, an MRI of brain with and without contrast is warranted. (2) Psychosis: Status: Acute Code(s): F29 - Unspecified psychosis not due to a substance or known physiological condition Plan Admit to M3, conditional voluntary, 15 minute checks TSH, B12, Folate, A1C, Lipid Panel Continue Clonidine, Lorazepam prn, Trazodone prn, recent Olanzapine increase Haldol 5 mg bid to target psychotic thought process 05/28: pt refusing haldol. order DCed. reports only feels worse with zyprexa dosing increase. very anxious and tense. agrees to mood stabilizer trial, VPA. also c/o right FERRIS/burning sensation for months, seen by neuro, who recommended MRI. so ordered. 05/29: MRI WNL. slight improvement in anxiety this morning. continue VPA trial. discussed mgmt with pt's mother. 05/30 continue tx. 05/31 continue tx. 06/01: taper zyprexa, titrate seroquel per pt preference. zyprexa to 15 mg tonight, start seroquel at 300 QHS tonight. labs weds ford - VPA. reporting hearing voices telling him they are telepathically communicating with him, but he does not believe it. also reporting non-stop imagery in his head all day. 06/02: poor sleep overnight. keep zyprexa at 15 and increase seroquel to 600. per pt's strong request, start lithium immediately, at 600 BID. check VPA- related labs tomorrow night. remains feeling very uncomfortable. 06/03: DC zyprexa as pt sedated this morning. continue meds otherwise. check labs tonight. 06/04: VPA 95. denies AH, HI, non-stop imagery presently. feeling too heavy, slow, forgetful. notes improvement with start of lithium. agrees to decrease VPA to 1250 and seroquel to 500 at HS. 06/05: c/o poor sleep. positive Sx remain absent. c/o feeling overwhelmed, is fairly flat, some thought disorder appears to be present (poor information retention). asking to increase seroquel back to 600, which is done. also askikng to continue VPA taper, which is agreed to, with VPA being cur back to 1000 mg QHS. labs ordered for saturday night. family mtg held with mother. 06/06: Continue current regimen and plans 06/07: Continue current regimen and plans. Decreased nighttime Seroquel by 200 mg 06/08: reporting resurgence of sense that nothing is real (ie that we inhabit a video game) as well as intrusive HI, starting from saturday. slept well last night, however. concerned it was the DC of zyprexa and start of seroquel that caused the change. asks to start high potency neuroleptic, agrees to begin with fluphenazine 5 mg QHS as of tonight. R/B discussed, incl akathisia and dystonia. draw labs tonight. 06/09: lithium 0.83, VPA 77.7. other labs reassuring. slept well. +intrusive HI thoughts, no AVH. increase prolixin to 5 BID as of tomorrow. decrease seroquel to 300 as of tonight. family mtg had with pt's mother. 06/10: pt notes h/o Spice use, as recently as 1.5 months ago. 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 poor sleep last night, increase seroquel back to 400 mg at HS. 06/11: c/o agitation on prolixin. declines to add cogentin or benadryl. DC prolixin, restart zyprexa 30 mg QHS. decrease seroquel to 300 QHS, plan to taper off entirely. 06/12: declined interview. c/o poor sleep. ativan 2 mg added for HS. otherwise continue current mgmt. 06/13: Continue current treatment plan. 06/14: Guarded. Patient reports feeling good today; does not report any issues. Patient stated, I like to keep to myself. I just want asleep . Denies SI/HI/VH/AH. Per nursing, patient has been lying in bed most of the day and refusing to shower. Continue current treatment plan. 06/15: no change. declines interview. continue current mgmt. 06/16: no change. declines interview. begin taper of VPA and lithium. VPA from 1000 mg to 750 mg tonight. lithium from 1200 mg daily to 1050 mg daily as of tomorrow. otherwise continue current mgmt. 06/17: denies AH, intrusive thoughts, imagery. appears sedated, continues to refuse to get out of bed. continue taper of mood stabilizers, now add seroquel taper. decrease VPA from 750 to 500 QHS. decrease lithium from 1050 daily to 900 daily. decrease seroquel from 300 QHS to 200 QHS. Reason for continued inpatient stay Substantial Risk for: inability to function Time Spent With Patient Time: Total time managing care of this patient today __25__ minutes.
[2024-06-17 20:15] VITALS: BP 137/78; PULSE 98; RESP 18; TEMP 36.7; O2SAT 98
[2024-06-17] MEDS: LORazepam 1 MG TABLET 2 MG PO (20:25)
[2024-06-17] MEDS: Lithium Carbonate ER 450 MG TABLET.ER PO (20:28)
[2024-06-17] MEDS: OLANZapine 10 MG TABLET 30 MG PO (20:28)
[2024-06-17] MEDS: Divalproex Sodium ER 500 MG TAB.ER.24H PO (20:29)
[2024-06-17] MEDS: QUEtiapine Fumarate 200 MG TABLET PO (22:00)
[2024-06-17] MEDS: Nicotine Polacrilex 2 MG GUM 4 MG BUCCAL (23:58)
[2024-06-18 07:00] VITALS: BMI 26.2
[2024-06-18 07:25] VITALS: BP 124/58; PULSE 101; RESP 14; TEMP 36.6; O2SAT 98
[2024-06-18] MEDS: Lithium Carbonate ER 450 MG TABLET.ER PO (09:13)
[2024-06-18] MEDS: Loratadine 10 MG TABLET PO (09:13)
[2024-06-18] MEDS: Docusate Sodium 100 MG CAPSULE PO ×2 (09:13→20:17)
--- NOTE | 2024-06-18 15:31 | HO.PSYCHPN ---
Subjective Subjective Date of Service: 06/18/24 Reason For Visit: HI/psychosis Interim History: out of bed to interview room today. reports AH resolved, intrusive thoughts resolved, sense or non-reality improved, non-stop mental imagery resolved. continues to say he does not feel well but cannot explain in what way. less tired than yesterday. agreeable to continue to taper all psych meds aside from zyprexa. states he is sleeping well. per staff, difficult to engage. out on unit NOC shift. Mental Status Exam Mental Status Exam Narrative: up and out of bed today. cooperative. no PMA/PMR. speech nml rate, amount, loudness, latency. flattened tone. thoughts linear and logical; thought disorder appears improved, better executive and memory function. mood anxious. no SI/HI/VH expressed. denies AH. Diagnostics Vital Signs (24Hr): Vital Signs - 24 hr 06/17/24 20:15 06/18/24 07:25 Temperature 98.1 F 97.9 F Pulse Rate 98 101 H Respiratory Rate 18 14 Blood Pressure 137/78 124/58 L Pulse Oximetry 98 98 Oxygen Delivery Method Room Air Room Air BMI result Body Mass Index 26.2 Labs 06/03/24 20:38 06/08/24 19:55 Imaging Radiology Impressions: ITS Impressions Chest X-Ray 05/24/24 16:15 IMPRESSION: No evidence of acute disease Electronically signed by: Cholo Lopez MD 05/24/2024 04:32 PM EDT Brain MRI 05/29/24 11:29 IMPRESSION: Unremarkable contrast enhanced MRI of the brain. Electronically signed by: Misha Spears MD 05/29/2024 12:43 PM EDT RP Medications Medications Current Medications Acetaminophen (Acetaminophen 325 Mg Tablet) 650 mg PO Q6H PRN PRN Reason: Headache/Pain Mild Scale (1-3) Last Admin: 06/06/24 12:15 Dose: 650 mg Al Hydroxide/Mg Hydroxide (Magnesium Hydrox/Alum Hydrox 30 Ml Oral.Susp) 30 ml PO Q6H PRN PRN Reason: Heartburn/Nausea Last Admin: 06/06/24 18:17 Dose: 30 ml Albuterol Sulfate (Albuterol Sulfate 90 Mcg 8 Gm Inhaler) 2 puff INHALE RQ4H PRN PRN Reason: Shortness of Breath Last Admin: 06/09/24 12:47 Dose: 2 puff Calcium Carbonate (Calcium Carbonate 750 Mg Tab.Chew) 750 mg PO Q6H PRN PRN Reason: Heartburn Divalproex Sodium (Divalproex Sodium Er 250 Mg Tab.Er.24h) 250 mg PO BEDTIME RAVEN Docusate Sodium (Docusate Sodium 100 Mg Capsule) 100 mg PO BID RAVEN Last Admin: 06/18/24 09:13 Dose: 100 mg Hydroxyzine HCl (Hydroxyzine Hcl 25 Mg Tablet) 25 mg PO Q6H PRN PRN Reason: Anxiety Last Admin: 06/06/24 20:07 Dose: 25 mg [place] Carbonate ([place] Carbonate Er 300 Mg Tablet.Er) 300 mg PO BID [facility] Loratadine (Loratadine 10 Mg Tablet) 10 mg PO DAILY [facility] Last Admin: 06/18/24 09:13 Dose: 10 mg Lorazepam (Lorazepam 1 Mg Tablet) 1 mg PO Q4H PRN PRN Reason: severe anxiety Last Admin: 06/12/24 02:46 Dose: 1 mg Lorazepam (Lorazepam 1 Mg Tablet) 2 mg PO BEDTIME RAVEN Last Admin: 06/17/24 20:25 Dose: 2 mg Magnesium Hydroxide (Milk Of Magnesia 30 Ml Oral.Susp) 30 ml PO DAILY PRN PRN Reason: Constipation Last Admin: 06/04/24 17:38 Dose: 30 ml Nicotine (Nicotine 21 Mg Patch.Td24) 21 mg TRANSDERMA DAILY [facility] Last Admin: 06/18/24 09:15 Dose: Not Given Nicotine Polacrilex (Nicotine Polacrilex 2 Mg Gum) 4 mg BUCCAL Q2H PRN PRN Reason: Nicotine Cravings Last Admin: 06/17/24 23:58 Dose: 4 mg Olanzapine (Olanzapine 10 Mg Tablet) 30 mg PO BEDTIME RAVEN Last Admin: 06/17/24 20:28 Dose: 30 mg Quetiapine Fumarate (Quetiapine Fumarate 100 Mg Tablet) 100 mg PO BEDTIME PRN PRN Reason: insomnia Last Admin: 06/06/24 20:07 Dose: 100 mg Quetiapine Fumarate (Quetiapine Fumarate 100 Mg Tablet) 100 mg PO BEDTIME RAVEN Simethicone (Simethicone 80 Mg Tab.Chew) 80 mg PO QIDWMHS PRN PRN Reason: Gas Last Admin: 05/31/24 10:34 Dose: 80 mg Allergies Allergies Allergy/AdvReac Type Severity Reaction Status Date / Time morphine Allergy Rash Verified 05/23/24 09:54 oxycodone Allergy Rash Verified 05/23/24 09:54 Assessment & Plan Assessment & Plan (1) Encephalopathy: Qualifiers: Encephalopathy type: unspecified encephalopathy Qualified Code(s): G93.40 - Encephalopathy, unspecified Status: Acute Code(s): G93.40 - Encephalopathy, unspecified Assessment and Plan: 23 years old man who reported right-sided headache for last few months. He was admitted with 1st episode of psychosis but he also reported that he had been to emergency room and had CT scan of brain done. Apparently that did not reveal any significant abnormality. If his history is correct, an MRI of brain with and without contrast is warranted. (2) Psychosis: Status: Acute Code(s): F29 - Unspecified psychosis not due to a substance or known physiological condition Plan Admit to M3, conditional voluntary, 15 minute checks TSH, B12, Folate, A1C, Lipid Panel Continue Clonidine, Lorazepam prn, Trazodone prn, recent Olanzapine increase Haldol 5 mg bid to target psychotic thought process 05/28: pt refusing haldol. order DCed. reports only feels worse with zyprexa dosing increase. very anxious and tense. agrees to mood stabilizer trial, VPA. also c/o right FERRIS/burning sensation for months, seen by neuro, who recommended MRI. so ordered. 05/29: MRI WNL. slight improvement in anxiety this morning. continue VPA trial. discussed mgmt with pt's mother. 05/30 continue tx. 05/31 continue tx. 06/01: taper zyprexa, titrate seroquel per pt preference. zyprexa to 15 mg tonight, start seroquel at 300 QHS tonight. labs weds for[facility] - VPA. reporting hearing voices telling him they are telepathically communicating with him, but he does not believe it. also reporting non-stop imagery in his head all day. 06/02: poor sleep overnight. keep zyprexa at 15 and increase seroquel to 600. per pt's strong request, start lithium immediately, at 600 BID. check VPA-related labs tomorrow night. remains feeling very uncomfortable. 06/03: DC zyprexa as pt sedated this morning. continue meds otherwise. check labs tonight. 06/04: VPA 95. denies AH, HI, non-stop imagery presently. feeling too heavy, slow, forgetful. notes improvement with start of lithium. agrees to decrease VPA to 1250 and seroquel to 500 at HS. 06/05: c/o poor sleep. positive Sx remain absent. c/o feeling overwhelmed, is fairly flat, some thought disorder appears to be present (poor information retention). asking to increase seroquel back to 600, which is done. also askikng to continue VPA taper, which is agreed to, with VPA being cur back to 1000 mg QHS. labs ordered for saturday night. family mtg held with mother. 06/06: Continue current regimen and plans 06/07: Continue current regimen and plans. Decreased nighttime Seroquel by 200 mg 06/08: reporting resurgence of sense that nothing is real (ie that we inhabit a video game) as well as intrusive HI, starting from saturday. slept well last night, however. concerned it was the DC of zyprexa and start of seroquel that caused the change. asks to start high potency neuroleptic, agrees to begin with fluphenazine 5 mg QHS as of tonight. R/B discussed, incl akathisia and dystonia. draw labs tonight. 06/09: lithium 0.83, VPA 77.7. other labs reassuring. slept well. +intrusive HI thoughts, no AVH. increase prolixin to 5 BID as of tomorrow. decrease seroquel to 300 as of tonight. family mtg had with pt's mother. 06/10: pt notes h/o Spice use, as recently as 1.5 months ago. 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 poor sleep last night, increase seroquel back to 400 mg at HS. 06/11: c/o agitation on prolixin. declines to add cogentin or benadryl. DC prolixin, restart zyprexa 30 mg QHS. decrease seroquel to 300 QHS, plan to taper off entirely. 06/12: declined interview. c/o poor sleep. ativan 2 mg added for HS. otherwise continue current mgmt. 06/13: Continue current treatment plan. 06/14: Guarded. Patient reports feeling good today; does not report any issues. Patient stated, I like to keep to myself. I just want asleep . Denies SI/HI/VH/AH. Per nursing, patient has been lying in bed most of the day and refusing to shower. Continue current treatment plan. 06/15: no change. declines interview. continue current mgmt. 06/16: no change. declines interview. begin taper of VPA and lithium. VPA from 1000 mg to 750 mg tonight. lithium from 1200 mg daily to 1050 mg daily as of tomorrow. otherwise continue current mgmt. 06/17: denies AH, intrusive thoughts, imagery. appears sedated, continues to refuse to get out of bed. continue taper of mood stabilizers, now add seroquel taper. decrease VPA from 750 to 500 QHS. decrease lithium from 1050 daily to 900 daily. decrease seroquel from 300 QHS to 200 QHS. 06/18: taper VPA to 250 QHS, lithium to 300 BID, and seroquel to 100 QHS. less sedated, up and out of bed for interview today for the first time in a week. discussed status with pt's mother. Reason for continued inpatient stay Substantial Risk for: inability to function and rapid decompensation Time Spent With Patient Time: Total time managing care of this patient today ___65_ minutes.
[2024-06-18 20:00] VITALS: BP 132/79; PULSE 95; RESP 14; TEMP 36.3; O2SAT 100
[2024-06-18] MEDS: OLANZapine 10 MG TABLET 30 MG PO (20:17)
[2024-06-18] MEDS: LORazepam 1 MG TABLET 2 MG PO (20:17)
[2024-06-18] MEDS: Divalproex Sodium ER 250 MG TAB.ER.24H PO (20:19)
[2024-06-18] MEDS: Lithium Carbonate ER 300 MG TABLET.ER PO (20:19)
[2024-06-18] MEDS: QUEtiapine Fumarate 100 MG TABLET PO (20:19)
[2024-06-19 08:00] VITALS: BP 101/62; PULSE 68; RESP 14; TEMP 36.6; O2SAT 98
[2024-06-19] MEDS: Loratadine 10 MG TABLET PO (09:24)
[2024-06-19] MEDS: Lithium Carbonate ER 300 MG TABLET.ER PO (09:24)
[2024-06-19] MEDS: Docusate Sodium 100 MG CAPSULE PO ×2 (09:24→20:34)
--- NOTE | 2024-06-19 16:06 | HO.PSYCHPN ---
Subjective Subjective Date of Service: 06/19/24 Reason For Visit: HI/psychosis Interim History: in bed, blanket over face. denies he told anyone he was hearing AH last night. reports continues to improve. agreeable to continue taper of mood stabilizers and seroquel. per staff, taking meds. feeling OK after dinner. reported AH while falling asleep. appeared to have slept last night. Mental Status Exam Mental Status Exam Narrative: in bed today. cooperative. no PMA/PMR. speech nml rate, amount, loudness, latency. flattened tone. thoughts linear and logical; thought disorder appears improved, better executive and memory function. mood anxious. no SI/HI/VH expressed. denies AH. Diagnostics Vital Signs (24Hr): Vital Signs - 24 hr 06/18/24 20:00 06/19/24 08:00 Temperature 97.3 F 97.9 F Pulse Rate 95 68 Respiratory Rate 14 14 Blood Pressure 132/79 101/62 Pulse Oximetry 100 98 Oxygen Delivery Method Room Air Room Air BMI result Body Mass Index 26.2 Labs 06/03/24 20:38 06/08/24 19:55 Imaging Radiology Impressions: ITS Impressions Chest X-Ray 05/24/24 16:15 IMPRESSION: No evidence of acute disease Electronically signed by: Cholo Lopez MD 05/24/2024 04:32 PM EDT Brain MRI 05/29/24 11:29 IMPRESSION: Unremarkable contrast enhanced MRI of the brain. Electronically signed by: Misha Spears MD 05/29/2024 12:43 PM EDT RP Medications Medications Current Medications Acetaminophen (Acetaminophen 325 Mg Tablet) 650 mg PO Q6H PRN PRN Reason: Headache/Pain Mild Scale (1-3) Last Admin: 06/06/24 12:15 Dose: 650 mg Al Hydroxide/Mg Hydroxide (Magnesium Hydrox/Alum Hydrox 30 Ml Oral.Susp) 30 ml PO Q6H PRN PRN Reason: Heartburn/Nausea Last Admin: 06/06/24 18:17 Dose: 30 ml Albuterol Sulfate (Albuterol Sulfate 90 Mcg 8 Gm Inhaler) 2 puff INHALE RQ4H PRN PRN Reason: Shortness of Breath Last Admin: 06/09/24 12:47 Dose: 2 puff Calcium Carbonate (Calcium Carbonate 750 Mg Tab.Chew) 750 mg PO Q6H PRN PRN Reason: Heartburn Divalproex Sodium (Divalproex Sodium Er 250 Mg Tab.Er.24h) 250 mg PO BEDTIME [facility] Stop: 06/21/24 21:01 Last Admin: 06/18/24 20:19 Dose: 250 mg Docusate Sodium (Docusate Sodium 100 Mg Capsule) 100 mg PO BID [facility] Last Admin: 06/19/24 09:24 Dose: 100 mg Hydroxyzine HCl (Hydroxyzine Hcl 25 Mg Tablet) 25 mg PO Q6H PRN PRN Reason: Anxiety Last Admin: 06/06/24 20:07 Dose: 25 mg [place] Carbonate ([place] Carbonate Er 300 Mg Tablet.Er) 150 mg PO BID [facility] Stop: 06/21/24 20:59 Loratadine (Loratadine 10 Mg Tablet) 10 mg PO DAILY [facility] Last Admin: 06/19/24 09:24 Dose: 10 mg Lorazepam (Lorazepam 1 Mg Tablet) 1 mg PO Q4H PRN PRN Reason: severe anxiety Last Admin: 06/12/24 02:46 Dose: 1 mg Lorazepam (Lorazepam 1 Mg Tablet) 2 mg PO BEDTIME [facility] Last Admin: 06/18/24 20:17 Dose: 2 mg Magnesium Hydroxide (Milk Of Magnesia 30 Ml Oral.Susp) 30 ml PO DAILY PRN PRN Reason: Constipation Last Admin: 06/04/24 17:38 Dose: 30 ml Nicotine (Nicotine 21 Mg Patch.Td24) 21 mg TRANSDERMA DAILY [facility] Last Admin: 06/19/24 09:26 Dose: Not Given Nicotine Polacrilex (Nicotine Polacrilex 2 Mg Gum) 4 mg BUCCAL Q2H PRN PRN Reason: Nicotine Cravings Last Admin: 06/17/24 23:58 Dose: 4 mg Olanzapine (Olanzapine 10 Mg Tablet) 30 mg PO BEDTIME [facility] Last Admin: 06/18/24 20:17 Dose: 30 mg Quetiapine Fumarate (Quetiapine Fumarate 100 Mg Tablet) 100 mg PO BEDTIME PRN PRN Reason: insomnia Last Admin: 06/06/24 20:07 Dose: 100 mg Quetiapine Fumarate (Quetiapine Fumarate 50 Mg Tablet) 50 mg PO BEDTIME [facility] Stop: 06/20/24 20:59 Quetiapine Fumarate (Quetiapine Fumarate 25 Mg Tablet) 25 mg PO ONCE ONE Stop: 06/20/24 21:01 Simethicone (Simethicone 80 Mg Tab.Chew) 80 mg PO QIDWMHS PRN PRN Reason: Gas Last Admin: 05/31/24 10:34 Dose: 80 mg Allergies Allergies Allergy/AdvReac Type Severity Reaction Status Date / Time morphine Allergy Rash Verified 05/23/24 09:54 oxycodone Allergy Rash Verified 05/23/24 09:54 Assessment & Plan Assessment & Plan (1) Encephalopathy: Qualifiers: Encephalopathy type: unspecified encephalopathy Qualified Code(s): G93.40 - Encephalopathy, unspecified Status: Acute Code(s): G93.40 - Encephalopathy, unspecified Assessment and Plan: 23 years old man who reported right-sided headache for last few months. He was admitted with 1st episode of psychosis but he also reported that he had been to emergency room and had CT scan of brain done. Apparently that did not reveal any significant abnormality. If his history is correct, an MRI of brain with and without contrast is warranted. (2) Psychosis: Status: Acute Code(s): F29 - Unspecified psychosis not due to a substance or known physiological condition Plan Admit to M3, conditional voluntary, 15 minute checks TSH, B12, Folate, A1C, Lipid Panel Continue Clonidine, Lorazepam prn, Trazodone prn, recent Olanzapine increase Haldol 5 mg bid to target psychotic thought process 05/28: pt refusing haldol. order DCed. reports only feels worse with zyprexa dosing increase. very anxious and tense. agrees to mood stabilizer trial, VPA. also c/o right FERRIS/burning sensation for months, seen by neuro, who recommended MRI. so ordered. 05/29: MRI WNL. slight improvement in anxiety this morning. continue VPA trial. discussed mgmt with pt's mother. 05/30 continue tx. 05/31 continue tx. 06/01: taper zyprexa, titrate seroquel per pt preference. zyprexa to 15 mg tonight, start seroquel at 300 QHS tonight. labs weds ford - VPA. reporting hearing voices telling him they are telepathically communicating with him, but he does not believe it. also reporting non-stop imagery in his head all day. 06/02: poor sleep overnight. keep zyprexa at 15 and increase seroquel to 600. per pt's strong request, start lithium immediately, at 600 BID. check VPA-related labs tomorrow night. remains feeling very uncomfortable. 06/03: DC zyprexa as pt sedated this morning. continue meds otherwise. check labs tonight. 06/04: VPA 95. denies AH, HI, non-stop imagery presently. feeling too heavy, slow, forgetful. notes improvement with start of lithium. agrees to decrease VPA to 1250 and seroquel to 500 at HS. 06/05: c/o poor sleep. positive Sx remain absent. c/o feeling overwhelmed, is fairly flat, some thought disorder appears to be present (poor information retention). asking to increase seroquel back to 600, which is done. also askikng to continue VPA taper, which is agreed to, with VPA being cur back to 1000 mg QHS. labs ordered for saturday night. family mtg held with mother. 06/06: Continue current regimen and plans 06/07: Continue current regimen and plans. Decreased nighttime Seroquel by 200 mg 06/08: reporting resurgence of sense that nothing is real (ie that we inhabit a video game) as well as intrusive HI, starting from saturday. slept well last night, however. concerned it was the DC of zyprexa and start of seroquel that caused the change. asks to start high potency neuroleptic, agrees to begin with fluphenazine 5 mg QHS as of tonight. R/B discussed, incl akathisia and dystonia. draw labs tonight. 06/09: lithium 0.83, VPA 77.7. other labs reassuring. slept well. +intrusive HI thoughts, no AVH. increase prolixin to 5 BID as of tomorrow. decrease seroquel to 300 as of tonight. family mtg had with pt's mother. 06/10: pt notes h/o Spice use, as recently as 1.5 months ago. 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 poor sleep last night, increase seroquel back to 400 mg at HS. 06/11: c/o agitation on prolixin. declines to add cogentin or benadryl. DC prolixin, restart zyprexa 30 mg QHS. decrease seroquel to 300 QHS, plan to taper off entirely. 06/12: declined interview. c/o poor sleep. ativan 2 mg added for HS. otherwise continue current mgmt. 06/13: Continue current treatment plan. 06/14: Guarded. Patient reports feeling good today; does not report any issues. Patient stated, I like to keep to myself. I just want asleep . Denies SI/HI/VH/AH. Per nursing, patient has been lying in bed most of the day and refusing to shower. Continue current treatment plan. 06/15: no change. declines interview. continue current mgmt. 06/16: no change. declines interview. begin taper of VPA and lithium. VPA from 1000 mg to 750 mg tonight. lithium from 1200 mg daily to 1050 mg daily as of tomorrow. otherwise continue current mgmt. 06/17: denies AH, intrusive thoughts, imagery. appears sedated, continues to refuse to get out of bed. continue taper of mood stabilizers, now add seroquel taper. decrease VPA from 750 to 500 QHS. decrease lithium from 1050 daily to 900 daily. decrease seroquel from 300 QHS to 200 QHS. 06/18: taper VPA to 250 QHS, lithium to 300 BID, and seroquel to 100 QHS. less sedated, up and out of bed for interview today for the first time in a week. discussed status with pt's mother. 06/19: taper lithium to 150 BID through 06/21 morning, then DC. continue VPA 250 QHS through 06/21 for[facility], then DC. seroquel 50 tonight, then 25 tomorrow night, then DC. orders entered. in bed today, but reporting he continues to feel better. less sedated. Reason for continued inpatient stay Substantial Risk for: inability to function and rapid decompensation Time Spent With Patient Time: Total time managing care of this patient today __25__ minutes.
[2024-06-19 20:00] VITALS: BP 141/78; PULSE 100; RESP 16; TEMP 36.9; O2SAT 96
[2024-06-19] MEDS: OLANZapine 10 MG TABLET 30 MG PO (20:30)
[2024-06-19] MEDS: LORazepam 1 MG TABLET 2 MG PO (20:31)
[2024-06-19] MEDS: Lithium Carbonate ER 300 MG TABLET.ER 150 MG PO (20:31)
[2024-06-19] MEDS: QUEtiapine Fumarate 50 MG TABLET PO (20:33)
[2024-06-19] MEDS: Divalproex Sodium ER 250 MG TAB.ER.24H PO (20:34)
[2024-06-19] MEDS: QUEtiapine Fumarate 100 MG TABLET PO (20:38)
[2024-06-20 07:45] VITALS: BP 106/56; PULSE 71; RESP 14; TEMP 36.4; O2SAT 95
[2024-06-20] MEDS: Docusate Sodium 100 MG CAPSULE PO ×2 (08:28→20:04)
[2024-06-20] MEDS: Lithium Carbonate ER 300 MG TABLET.ER 150 MG PO ×2 (08:28→20:04)
[2024-06-20] MEDS: Loratadine 10 MG TABLET PO (08:28)
--- NOTE | 2024-06-20 08:35 | HO.PSYCHPN ---
Subjective Subjective Date of Service: 06/20/24 Reason For Visit: HI/psychosis Subjective Notes: Conditional Voluntary Healthcare Proxy: No Guardianship: No Medical Problems Affecting Mental Status: No Interim History: 23 yo with first psychotic episode- lying in bed with sheet over him head peaking out a bit to answer questions, minimal engagement - denies any problems- no no side effects of medications- Nursing report isolative to himself, watches tv on unit, tends to be oob later in day, flat affect Medication Compliance: Yes Side effects from medications: No Attending Groups: No Review of Systems Acute medical concerns: No Medical Review of Systems: unchanged Mental Status Exam Mental Status Exam Narrative: lying in bed sheet over him except face Patient Orientation: Person and Situation Level of Consciousness: Awake Patient Behavior: Guarded, Passive, Avoidant, Isolative and Poor Eye Contact Mood Description: Withdrawn Affect Description: Flat Speech Pattern: Impoverished Hallucinations: None Thought Content: positive for Poverty of Content Judgement: Poor Diagnostics Vital Signs (24Hr): Vital Signs - 24 hr 06/19/24 20:00 06/20/24 07:45 Temperature 98.5 F 97.6 F Pulse Rate 100 71 Respiratory Rate 16 14 Blood Pressure 141/78 H 106/56 L Pulse Oximetry 96 95 Oxygen Delivery Method Room Air Room Air BMI result Body Mass Index 26.2 Labs 06/03/24 20:38 06/08/24 19:55 Imaging Radiology Impressions: ITS Impressions Chest X-Ray 05/24/24 16:15 IMPRESSION: No evidence of acute disease Electronically signed by: Cholo Lopez MD 05/24/2024 04:32 PM EDT RP Brain MRI 05/29/24 11:29 IMPRESSION: Unremarkable contrast enhanced MRI of the brain. Electronically signed by: Misha Spears MD 05/29/2024 12:43 PM EDT RP Medications Medications Current Medications Acetaminophen (Acetaminophen 325 Mg Tablet) 650 mg PO Q6H PRN PRN Reason: Headache/Pain Mild Scale (1-3) Last Admin: 06/06/24 12:15 Dose: 650 mg Al Hydroxide/Mg Hydroxide (Magnesium Hydrox/Alum Hydrox 30 Ml Oral.Susp) 30 ml PO Q6H PRN PRN Reason: Heartburn/Nausea Last Admin: 06/06/24 18:17 Dose: 30 ml Albuterol Sulfate (Albuterol Sulfate 90 Mcg 8 Gm Inhaler) 2 puff INHALE RQ4H PRN PRN Reason: Shortness of Breath Last Admin: 06/09/24 12:47 Dose: 2 puff Calcium Carbonate (Calcium Carbonate 750 Mg Tab.Chew) 750 mg PO Q6H PRN PRN Reason: Heartburn Divalproex Sodium (Divalproex Sodium Er 250 Mg Tab.Er.24h) 250 mg PO BEDTIME RAVEN Stop: 06/21/24 21:01 Last Admin: 06/19/24 20:34 Dose: 250 mg Docusate Sodium (Docusate Sodium 100 Mg Capsule) 100 mg PO BID [facility] Last Admin: 06/20/24 08:28 Dose: 100 mg Hydroxyzine HCl (Hydroxyzine Hcl 25 Mg Tablet) 25 mg PO Q6H PRN PRN Reason: Anxiety Last Admin: 06/06/24 20:07 Dose: 25 mg [place] Carbonate ([place] Carbonate Er 300 Mg Tablet.Er) 150 mg PO BID [facility] Stop: 06/21/24 20:59 Last Admin: 06/20/24 08:28 Dose: 150 mg Loratadine (Loratadine 10 Mg Tablet) 10 mg PO DAILY [facility] Last Admin: 06/20/24 08:28 Dose: 10 mg Lorazepam (Lorazepam 1 Mg Tablet) 1 mg PO Q4H PRN PRN Reason: severe anxiety Last Admin: 06/12/24 02:46 Dose: 1 mg Lorazepam (Lorazepam 1 Mg Tablet) 2 mg PO BEDTIME [facility] Last Admin: 06/19/24 20:31 Dose: 2 mg Magnesium Hydroxide (Milk Of Magnesia 30 Ml Oral.Susp) 30 ml PO DAILY PRN PRN Reason: Constipation Last Admin: 06/04/24 17:38 Dose: 30 ml Nicotine (Nicotine 21 Mg Patch.Td24) 21 mg TRANSDERMA DAILY [facility] Last Admin: 06/20/24 08:30 Dose: Not Given Nicotine Polacrilex (Nicotine Polacrilex 2 Mg Gum) 4 mg BUCCAL Q2H PRN PRN Reason: Nicotine Cravings Last Admin: 06/17/24 23:58 Dose: 4 mg Olanzapine (Olanzapine 10 Mg Tablet) 30 mg PO BEDTIME [facility] Last Admin: 06/19/24 20:30 Dose: 30 mg Quetiapine Fumarate (Quetiapine Fumarate 100 Mg Tablet) 100 mg PO BEDTIME PRN PRN Reason: insomnia Last Admin: 06/19/24 20:38 Dose: 100 mg Quetiapine Fumarate (Quetiapine Fumarate 50 Mg Tablet) 50 mg PO BEDTIME [facility]EN Stop: 06/20/24 20:59 Last Admin: 06/19/24 20:33 Dose: 50 mg Quetiapine Fumarate (Quetiapine Fumarate 25 Mg Tablet) 25 mg PO ONCE ONE Stop: 06/20/24 21:01 Simethicone (Simethicone 80 Mg Tab.Chew) 80 mg PO QIDWMHS PRN PRN Reason: Gas Last Admin: 05/31/24 10:34 Dose: 80 mg Allergies Allergies Allergy/AdvReac Type Severity Reaction Status Date / Time morphine Allergy Rash Verified 05/23/24 09:54 oxycodone Allergy Rash Verified 05/23/24 09:54 Assessment & Plan Assessment & Plan (1) Encephalopathy: Qualifiers: Encephalopathy type: unspecified encephalopathy Qualified Code(s): G93.40 - Encephalopathy, unspecified Status: Acute Code(s): G93.40 - Encephalopathy, unspecified Assessment and Plan: 23 years old man who reported right-sided headache for last few months. He was admitted with 1st episode of psychosis but he also reported that he had been to emergency room and had CT scan of brain done. Apparently that did not reveal any significant abnormality. If his history is correct, an MRI of brain with and without contrast is warranted. (2) Psychosis: Status: Acute Code(s): F29 - Unspecified psychosis not due to a substance or known physiological condition Plan Admit to M3, conditional voluntary, 15 minute checks TSH, B12, Folate, A1C, Lipid Panel Continue Clonidine, Lorazepam prn, Trazodone prn, recent Olanzapine increase Haldol 5 mg bid to target psychotic thought process 05/28: pt refusing haldol. order DCed. reports only feels worse with zyprexa dosing increase. very anxious and tense. agrees to mood stabilizer trial, VPA. also c/o right FERRIS/burning sensation for months, seen by neuro, who recommended MRI. so ordered. 05/29: MRI WNL. slight improvement in anxiety this morning. continue VPA trial. discussed mgmt with pt's mother. 05/30 continue tx. 05/31 continue tx. 9/16: taper zyprexa, titrate seroquel per pt preference. zyprexa to 15 mg tonight, start seroquel at 300 QHS tonight. labs weds [facility] - VPA. reporting hearing voices telling him they are telepathically communicating with him, but he does not believe it. also reporting non-stop imagery in his head all day. 06/02: poor sleep overnight. keep zyprexa at 15 and increase seroquel to 600. per pt's strong request, start lithium immediately, at 600 BID. check VPA-related labs tomorrow night. remains feeling very uncomfortable. 06/03: DC zyprexa as pt sedated this morning. continue meds otherwise. check labs tonight. 06/04: VPA 95. denies AH, HI, non-stop imagery presently. feeling too heavy, slow, forgetful. notes improvement with start of lithium. agrees to decrease VPA to 1250 and seroquel to 500 at HS. 06/05: c/o poor sleep. positive Sx remain absent. c/o feeling overwhelmed, is fairly flat, some thought disorder appears to be present (poor information retention). asking to increase seroquel back to 600, which is done. also askikng to continue VPA taper, which is agreed to, with VPA being cur back to 1000 mg QHS. labs ordered for saturday night. family mtg held with mother. 06/06: Continue current regimen and plans 06/07: Continue current regimen and plans. Decreased nighttime Seroquel by 200 mg 06/08: reporting resurgence of sense that nothing is real (ie that we inhabit a video game) as well as intrusive HI, starting from saturday. slept well last night, however. concerned it was the DC of zyprexa and start of seroquel that caused the change. asks to start high potency neuroleptic, agrees to begin with fluphenazine 5 mg QHS as of tonight. R/B discussed, incl akathisia and dystonia. draw labs tonight. 06/09: lithium 0.83, VPA 77.7. other labs reassuring. slept well. +intrusive HI thoughts, no AVH. increase prolixin to 5 BID as of tomorrow. decrease seroquel to 300 as of tonight. family mtg had with pt's mother. 06/10: pt notes h/o Spice use, as recently as 1.5 months ago. 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 poor sleep last night, increase seroquel back to 400 mg at HS. 06/11: c/o agitation on prolixin. declines to add cogentin or benadryl. DC prolixin, restart zyprexa 30 mg QHS. decrease seroquel to 300 QHS, plan to taper off entirely. 06/12: declined interview. c/o poor sleep. ativan 2 mg added for HS. otherwise continue current mgmt. 06/13: Continue current treatment plan. 06/14: Guarded. Patient reports feeling good today; does not report any issues. Patient stated, I like to keep to myself. I just want asleep . Denies SI/HI/VH/AH. Per nursing, patient has been lying in bed most of the day and refusing to shower. Continue current treatment plan. 06/15: no change. declines interview. continue current mgmt. 06/16: no change. declines interview. begin taper of VPA and lithium. VPA from 1000 mg to 750 mg tonight. lithium from 1200 mg daily to 1050 mg daily as of tomorrow. otherwise continue current mgmt. 06/17: denies AH, intrusive thoughts, imagery. appears sedated, continues to refuse to get out of bed. continue taper of mood stabilizers, now add seroquel taper. decrease VPA from 750 to 500 QHS. decrease lithium from 1050 daily to 900 daily. decrease seroquel from 300 QHS to 200 QHS. 06/18: taper VPA to 250 QHS, lithium to 300 BID, and seroquel to 100 QHS. less sedated, up and out of bed for interview today for the first time in a week. discussed status with pt's mother. 06/19: taper lithium to 150 BID through 06/21 morning, then DC. continue VPA 250 QHS through 06/21 [place], then DC. seroquel 50 tonight, then 25 tomorrow night, then DC. orders entered. in bed today, but reporting he continues to feel better. less sedated. 06/20 CTP Reason for continued inpatient stay Substantial Risk for: rapid decompensation Time Spent With Patient Time: Total time managing care of this patient today ____ minutes.
[2024-06-20 20:00] VITALS: BP 142/84; PULSE 97; RESP 16; TEMP 37.4; O2SAT 97
[2024-06-20] MEDS: Divalproex Sodium ER 250 MG TAB.ER.24H PO (20:03)
[2024-06-20] MEDS: OLANZapine 10 MG TABLET 30 MG PO (20:03)
[2024-06-20] MEDS: LORazepam 1 MG TABLET 2 MG PO (20:03)
[2024-06-20] MEDS: QUEtiapine Fumarate 25 MG TABLET PO (20:04)
[2024-06-20] MEDS: QUEtiapine Fumarate 100 MG TABLET PO (20:05)
[2024-06-21] MEDS: Loratadine 10 MG TABLET PO (09:07)
[2024-06-21] MEDS: Docusate Sodium 100 MG CAPSULE PO ×2 (09:08→20:09)
[2024-06-21] MEDS: Lithium Carbonate ER 300 MG TABLET.ER 150 MG PO ×2 (09:11→20:16)
[2024-06-21 19:35] VITALS: BP 135/75; PULSE 99; RESP 18; TEMP 36.8; O2SAT 96
[2024-06-21] MEDS: OLANZapine 10 MG TABLET 30 MG PO (20:08)
[2024-06-21] MEDS: Divalproex Sodium ER 250 MG TAB.ER.24H PO (20:09)
[2024-06-21] MEDS: LORazepam 1 MG TABLET 2 MG PO (20:09)
[2024-06-21] MEDS: QUEtiapine Fumarate 100 MG TABLET PO (20:09)
[2024-06-22 08:00] VITALS: BP 133/78; PULSE 88; RESP 16; TEMP 36.6; O2SAT 96
[2024-06-22] MEDS: Nicotine 21 MG PATCH.TD24 TRANSDERMA (08:15)
[2024-06-22] MEDS: Loratadine 10 MG TABLET PO (08:16)
[2024-06-22] MEDS: Docusate Sodium 100 MG CAPSULE PO ×2 (08:16→20:00)
--- NOTE | 2024-06-22 15:32 | HO.PSYCHPN ---
Subjective Subjective Date of Service: 06/22/24 Reason For Visit: HI/psychosis Interim History: able to get out of bed to meet with MD today. appears a bit more awake and energetic. states he continues to have difficulty sleeping, wants to remain on seroquel PRN. feels that 200 mg QHS PRN is the right dose. informed of ativan taper. feels the zyprexa is slowly doing what it needs to do. denies HI/AH, or imagery. per staff, blunted. taking meds. limited interactions. my head is all over the place right now. still hard to think. slept 8 hours. Mental Status Exam Mental Status Exam Narrative: up and out of bed today. cooperative. no PMA/PMR. speech nml rate, amount, loudness, latency. flattened tone. thoughts linear and logical; thought disorder appears improved, better executive and memory function. mood anxious. no SI/VH expressed. denies HI/AH. Diagnostics Vital Signs (24Hr): Vital Signs - 24 hr 06/21/24 19:35 06/22/24 08:00 Temperature 98.3 F 97.9 F Pulse Rate 99 88 Respiratory Rate 18 16 Blood Pressure 135/75 133/78 Pulse Oximetry 96 96 Oxygen Delivery Method Room Air Room Air BMI result Body Mass Index 26.2 Labs 06/03/24 20:38 06/08/24 19:55 Imaging Radiology Impressions: ITS Impressions Chest X-Ray 05/24/24 16:15 IMPRESSION: No evidence of acute disease Electronically signed by: Cholo Lopez MD 05/24/2024 04:32 PM EDT RP Brain MRI 05/29/24 11:29 IMPRESSION: Unremarkable contrast enhanced MRI of the brain. Electronically signed by: Misha Spears MD 05/29/2024 12:43 PM EDT RP Medications Medications Current Medications Acetaminophen (Acetaminophen 325 Mg Tablet) 650 mg PO Q6H PRN PRN Reason: Headache/Pain Mild Scale (1-3) Last Admin: 06/06/24 12:15 Dose: 650 mg Al Hydroxide/Mg Hydroxide (Magnesium Hydrox/Alum Hydrox 30 Ml Oral.Susp) 30 ml PO Q6H PRN PRN Reason: Heartburn/Nausea Last Admin: 06/06/24 18:17 Dose: 30 ml Albuterol Sulfate (Albuterol Sulfate 90 Mcg 8 Gm Inhaler) 2 puff INHALE RQ4H PRN PRN Reason: Shortness of Breath Last Admin: 06/09/24 12:47 Dose: 2 puff Calcium Carbonate (Calcium Carbonate 750 Mg Tab.Chew) 750 mg PO Q6H PRN PRN Reason: Heartburn Docusate Sodium (Docusate Sodium 100 Mg Capsule) 100 mg PO BID [facility] Last Admin: 06/22/24 08:16 Dose: 100 mg Hydroxyzine HCl (Hydroxyzine Hcl 25 Mg Tablet) 25 mg PO Q6H PRN PRN Reason: Anxiety Last Admin: 06/06/24 20:07 Dose: 25 mg Loratadine (Loratadine 10 Mg Tablet) 10 mg PO DAILY [facility] Last Admin: 06/22/24 08:16 Dose: 10 mg Lorazepam (Lorazepam 1 Mg Tablet) 1 mg PO BEDTIME [facility] Magnesium Hydroxide (Milk Of Magnesia 30 Ml Oral.Susp) 30 ml PO DAILY PRN PRN Reason: Constipation Last Admin: 06/04/24 17:38 Dose: 30 ml Nicotine (Nicotine 21 Mg Patch.Td24) 21 mg TRANSDERMA DAILY [facility] Last Admin: 06/22/24 08:15 Dose: 21 mg Nicotine Polacrilex (Nicotine Polacrilex 2 Mg Gum) 4 mg BUCCAL Q2H PRN PRN Reason: Nicotine Cravings Last Admin: 06/17/24 23:58 Dose: 4 mg Olanzapine (Olanzapine 10 Mg Tablet) 30 mg PO BEDTIME [facility] Last Admin: 06/21/24 20:08 Dose: 30 mg Quetiapine Fumarate (Quetiapine Fumarate 200 Mg Tablet) 200 mg PO BEDTIME PRN PRN Reason: insomnia Simethicone (Simethicone 80 Mg Tab.Chew) 80 mg PO QIDWMHS PRN PRN Reason: Gas Last Admin: 05/31/24 10:34 Dose: 80 mg Allergies Allergies Allergy/AdvReac Type Severity Reaction Status Date / Time morphine Allergy Rash Verified 05/23/24 09:54 oxycodone Allergy Rash Verified 05/23/24 09:54 Assessment & Plan Assessment & Plan (1) Encephalopathy: Qualifiers: Encephalopathy type: unspecified encephalopathy Qualified Code(s): G93.40 - Encephalopathy, unspecified Status: Acute Code(s): G93.40 - Encephalopathy, unspecified Assessment and Plan: 23 years old man who reported right-sided headache for last few months. He was admitted with 1st episode of psychosis but he also reported that he had been to emergency room and had CT scan of brain done. Apparently that did not reveal any significant abnormality. If his history is correct, an MRI of brain with and without contrast is warranted. (2) Psychosis: Status: Acute Code(s): F29 - Unspecified psychosis not due to a substance or known physiological condition Plan Admit to M3, conditional voluntary, 15 minute checks TSH, B12, Folate, A1C, Lipid Panel Continue Clonidine, Lorazepam prn, Trazodone prn, recent Olanzapine increase Haldol 5 mg bid to target psychotic thought process 05/28: pt refusing haldol. order DCed. reports only feels worse with zyprexa dosing increase. very anxious and tense. agrees to mood stabilizer trial, VPA. also c/o right FERRIS/burning sensation for months, seen by neuro, who recommended MRI. so ordered. 05/29: MRI WNL. slight improvement in anxiety this morning. continue VPA trial. discussed mgmt with pt's mother. 05/30 continue tx. 05/31 continue tx. 06/01: taper zyprexa, titrate seroquel per pt preference. zyprexa to 15 mg tonight, start seroquel at 300 QHS tonight. labs weds [facility] - VPA. reporting hearing voices telling him they are telepathically communicating with him, but he does not believe it. also reporting non-stop imagery in his head all day. 06/02: poor sleep overnight. keep zyprexa at 15 and increase seroquel to 600. per pt's strong request, start lithium immediately, at 600 BID. check VPA-related labs tomorrow night. remains feeling very uncomfortable. 06/03: DC zyprexa as pt sedated this morning. continue meds otherwise. check labs tonight. 06/04: VPA 95. denies AH, HI, non-stop imagery presently. feeling too heavy, slow, forgetful. notes improvement with start of lithium. agrees to decrease VPA to 1250 and seroquel to 500 at HS. 06/05: c/o poor sleep. positive Sx remain absent. c/o feeling overwhelmed, is fairly flat, some thought disorder appears to be present (poor information retention). asking to increase seroquel back to 600, which is done. also askikng to continue VPA taper, which is agreed to, with VPA being cur back to 1000 mg QHS. labs ordered for saturday night. family mtg held with mother. 06/06: Continue current regimen and plans 06/07: Continue current regimen and plans. Decreased nighttime Seroquel by 200 mg 06/08: reporting resurgence of sense that nothing is real (ie that we inhabit a video game) as well as intrusive HI, starting from saturday. slept well last night, however. concerned it was the DC of zyprexa and start of seroquel that caused the change. asks to start high potency neuroleptic, agrees to begin with fluphenazine 5 mg QHS as of tonight. R/B discussed, incl akathisia and dystonia. draw labs tonight. 06/09: lithium 0.83, VPA 77.7. other labs reassuring. slept well. +intrusive HI thoughts, no AVH. increase prolixin to 5 BID as of tomorrow. decrease seroquel to 300 as of tonight. family mtg had with pt's mother. 06/10: pt notes h/o Spice use, as recently as 1.5 months ago. 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 poor sleep last night, increase seroquel back to 400 mg at HS. 06/11: c/o agitation on prolixin. declines to add cogentin or benadryl. DC prolixin, restart zyprexa 30 mg QHS. decrease seroquel to 300 QHS, plan to taper off entirely. 06/12: declined interview. c/o poor sleep. ativan 2 mg added for HS. otherwise continue current mgmt. 06/13: Continue current treatment plan. 06/14: Guarded. Patient reports feeling good today; does not report any issues. Patient stated, I like to keep to myself. I just want asleep . Denies SI/HI/VH/AH. Per nursing, patient has been lying in bed most of the day and refusing to shower. Continue current treatment plan. 06/15: no change. declines interview. continue current mgmt. 06/16: no change. declines interview. begin taper of VPA and lithium. VPA from 1000 mg to 750 mg tonight. lithium from 1200 mg daily to 1050 mg daily as of tomorrow. otherwise continue current mgmt. 06/17: denies AH, intrusive thoughts, imagery. appears sedated, continues to refuse to get out of bed. continue taper of mood stabilizers, now add seroquel taper. decrease VPA from 750 to 500 QHS. decrease lithium from 1050 daily to 900 daily. decrease seroquel from 300 QHS to 200 QHS. 06/18: taper VPA to 250 QHS, lithium to 300 BID, and seroquel to 100 QHS. less sedated, up and out of bed for interview today for the first time in a week. discussed status with pt's mother. 06/19: taper lithium to 150 BID through 06/21 morning, then DC. continue VPA 250 QHS through 06/21 [place], then DC. seroquel 50 tonight, then 25 tomorrow night, then DC. orders entered. in bed today, but reporting he continues to feel better. less sedated. 06/20 CTP 06/22: up and out of bed today. remains without HI/AVH. continues to experience derealization. asking for seroquel 200 QHS PRN. decrease ativan to 1 mg QHS. planning to DC reji or fri. Reason for continued inpatient stay Substantial Risk for: inability to function Time Spent With Patient Time: Total time managing care of this patient today __25__ minutes.
[2024-06-22 19:50] VITALS: BP 139/84; PULSE 106; RESP 18; TEMP 37; O2SAT 97
[2024-06-22] MEDS: OLANZapine 10 MG TABLET 30 MG PO (20:00)
[2024-06-22] MEDS: QUEtiapine Fumarate 200 MG TABLET PO (20:00)
[2024-06-22] MEDS: LORazepam 1 MG TABLET PO (20:00)
[2024-06-23] MEDS: Nicotine 21 MG PATCH.TD24 TRANSDERMA (08:30)
[2024-06-23] MEDS: Ammonium Lactate 12 % Lotion 226 GM BOTTLE 1 APPL TOPICAL (16:18)
--- NOTE | 2024-06-23 16:27 | P.PNPSI_ITS ---
Subjective Subjective Date of Service: 06/23/24 Reason For Visit: HI/psychosis Interim History: in bed, declines to get up. reports he is sleeping better. aware of ativan taper. per staff, DC saturday. taking meds. denies Sx. limited interactions with staff and peers. slept all NOC. Mental Status Exam Mental Status Exam Narrative: under blanket in bed. cooperative but declining interview. no PMA/PMR. speech nml rate, amount, loudness, latency. flattened tone. thoughts linear and logical; thought disorder appears improved, better executive and memory function. mood anxious. no SI/HI/VH expressed. denies AH. Diagnostics Vital Signs (24Hr): Vital Signs - 24 hr 06/22/24 19:50 Temperature 98.6 F Pulse Rate 106 H Respiratory Rate 18 Blood Pressure 139/84 Pulse Oximetry 97 Oxygen Delivery Method Room Air BMI result Body Mass Index 26.2 Labs 06/03/24 20:38 06/08/24 19:55 Imaging Radiology Impressions: ITS Impressions Chest X-Ray 05/24/24 16:15 IMPRESSION: No evidence of acute disease Electronically signed by: Cholo Lopez MD 05/24/2024 04:32 PM EDT RP Brain MRI 05/29/24 11:29 IMPRESSION: Unremarkable contrast enhanced MRI of the brain. Electronically signed by: Misha Spears MD 05/29/2024 12:43 PM EDT RP Medications Medications Current Medications Acetaminophen (Acetaminophen 325 Mg Tablet) 650 mg PO Q6H PRN PRN Reason: Headache/Pain Mild Scale (1-3) Last Admin: 06/06/24 12:15 Dose: 650 mg Al Hydroxide/Mg Hydroxide (Magnesium Hydrox/Alum Hydrox 30 Ml Oral.Susp) 30 ml PO Q6H PRN PRN Reason: Heartburn/Nausea Last Admin: 06/06/24 18:17 Dose: 30 ml Albuterol Sulfate (Albuterol Sulfate 90 Mcg 8 Gm Inhaler) 2 puff INHALE RQ4H PRN PRN Reason: Shortness of Breath Last Admin: 06/09/24 12:47 Dose: 2 puff Calcium Carbonate (Calcium Carbonate 750 Mg Tab.Chew) 750 mg PO Q6H PRN PRN Reason: Heartburn Docusate Sodium (Docusate Sodium 100 Mg Capsule) 100 mg PO BID [facility] Last Admin: 06/23/24 08:31 Dose: Not Given Hydroxyzine HCl (Hydroxyzine Hcl 25 Mg Tablet) 25 mg PO Q6H PRN PRN Reason: Anxiety Last Admin: 06/06/24 20:07 Dose: 25 mg Lactic Acid (Ammonium Lactate 12 % Lotion 226 Gm Bottle) 1 appl TOPICAL DAILY [facility]; Protocol Last Admin: 06/23/24 16:18 Dose: 1 appl Loratadine (Loratadine 10 Mg Tablet) 10 mg PO DAILY [facility] Last Admin: 06/23/24 08:31 Dose: Not Given Lorazepam (Lorazepam 1 Mg Tablet) 1 mg PO BEDTIME [facility] Last Admin: 06/22/24 20:00 Dose: 1 mg Magnesium Hydroxide (Milk Of Magnesia 30 Ml Oral.Susp) 30 ml PO DAILY PRN PRN Reason: Constipation Last Admin: 06/04/24 17:38 Dose: 30 ml Nicotine (Nicotine 21 Mg Patch.Td24) 21 mg TRANSDERMA DAILY [facility] Last Admin: 06/23/24 08:30 Dose: 21 mg Nicotine Polacrilex (Nicotine Polacrilex 2 Mg Gum) 4 mg BUCCAL Q2H PRN PRN Reason: Nicotine Cravings Last Admin: 06/17/24 23:58 Dose: 4 mg Olanzapine (Olanzapine 10 Mg Tablet) 30 mg PO BEDTIME [facility] Last Admin: 06/22/24 20:00 Dose: 30 mg Quetiapine Fumarate (Quetiapine Fumarate 200 Mg Tablet) 200 mg PO BEDTIME PRN PRN Reason: insomnia Last Admin: 06/22/24 20:00 Dose: 200 mg Simethicone (Simethicone 80 Mg Tab.Chew) 80 mg PO QIDWMHS PRN PRN Reason: Gas Last Admin: 05/31/24 10:34 Dose: 80 mg Allergies Allergies Allergy/AdvReac Type Severity Reaction Status Date / Time morphine Allergy Rash Verified 05/23/24 09:54 oxycodone Allergy Rash Verified 05/23/24 09:54 Assessment & Plan Assessment & Plan (1) Encephalopathy: Qualifiers: Encephalopathy type: unspecified encephalopathy Qualified Code(s): G 93.40 - Encephalopathy, unspecified Status: Acute Code(s): G93.40 - Encephalopathy, unspecified Assessment and Plan: 23 years old man who reported right-sided headache for last few months. He was admitted with 1st episode of psychosis but he also reported that he had been to emergency room and had CT scan of brain done. Apparently that did not reveal any significant abnormality. If his history is correct, an MRI of brain with and without contrast is warranted. (2) Psychosis: Status: Acute Code(s): F29 - Unspecified psychosis not due to a substance or known physiological condition Plan Admit to M3, conditional voluntary, 15 minute checks TSH, B12, Folate, A1C, Lipid Panel Continue Clonidine, Lorazepam prn, Trazodone prn, recent Olanzapine increase Haldol 5 mg bid to target psychotic thought process 05/28: pt refusing haldol. order DCed. reports only feels worse with zyprexa dosing increase. very anxious and tense. agrees to mood stabilizer trial, VPA. also c/o right FERRIS/burning sensation for months, seen by neuro, who recommended MRI. so ordered. 05/29: MRI WNL. slight improvement in anxiety this morning. continue VPA trial. discussed mgmt with pt's mother. 05/30 continue tx. 05/31 continue tx. 06/01: taper zyprexa, titrate seroquel per pt preference. zyprexa to 15 mg tonight, start seroquel at 300 QHS tonight. labs weds [facility] - VPA. reporting hearing voices telling him they are telepathically communicating with him, but he does not believe it. also reporting non-stop imagery in his head all day. 06/02: poor sleep overnight. keep zyprexa at 15 and increase seroquel to 600. per pt's strong request, start lithium immediately, at 600 BID. check VPA- related labs tomorrow night. remains feeling very uncomfortable. 06/03: DC zyprexa as pt sedated this morning. continue meds otherwise. check labs tonight. 06/04: VPA 95. denies AH, HI, non-stop imagery presently. feeling too heavy, slow, forgetful. notes improvement with start of lithium. agrees to decrease VPA to 1250 and seroquel to 500 at HS. 06/05: c/o poor sleep. positive Sx remain absent. c/o feeling overwhelmed, is fairly flat, some thought disorder appears to be present (poor information retention). asking to increase seroquel back to 600, which is done. also askikng to continue VPA taper, which is agreed to, with VPA being cur back to 1000 mg QHS. labs ordered for saturday night. family mtg held with mother. 06/06: Continue current regimen and plans 06/07: Continue current regimen and plans. Decreased nighttime Seroquel by 200 mg 06/08: reporting resurgence of sense that nothing is real (ie that we inhabit a video game) as well as intrusive HI, starting from saturday. slept well last night, however. concerned it was the DC of zyprexa and start of seroquel that caused the change. asks to start high potency neuroleptic, agrees to begin with fluphenazine 5 mg QHS as of tonight. R/B discussed, incl akathisia and dystonia. draw labs tonight. 06/09: lithium 0.83, VPA 77.7. other labs reassuring. slept well. +intrusive HI thoughts, no AVH. increase prolixin to 5 BID as of tomorrow. decrease seroquel to 300 as of tonight. family mtg had with pt's mother. 06/10: pt notes h/o Spice use, as recently as 1.5 months ago. 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 poor sleep last night, increase seroquel back to 400 mg at HS. 06/11: c/o agitation on prolixin. declines to add cogentin or benadryl. DC prolixin, restart zyprexa 30 mg QHS. decrease seroquel to 300 QHS, plan to taper off entirely. 06/12: declined interview. c/o poor sleep. ativan 2 mg added for HS. otherwise continue current mgmt. 06/13: Continue current treatment plan. 06/14: Guarded. Patient reports feeling good today; does not report any issues. Patient stated, I like to keep to myself. I just want asleep . Denies SI/HI/VH/AH. Per nursing, patient has been lying in bed most of the day and refusing to shower. Continue current treatment plan. 06/15: no change. declines interview. continue current mgmt. 06/16: no change. declines interview. begin taper of VPA and lithium. VPA from 1000 mg to 750 mg tonight. lithium from 1200 mg daily to 1050 mg daily as of tomorrow. otherwise continue current mgmt. 06/17: denies AH, intrusive thoughts, imagery. appears sedated, continues to refuse to get out of bed. continue taper of mood stabilizers, now add seroquel taper. decrease VPA from 750 to 500 QHS. decrease lithium from 1050 daily to 900 daily. decrease seroquel from 300 QHS to 200 QHS. 06/18: taper VPA to 250 QHS, lithium to 300 BID, and seroquel to 100 QHS. less sedated, up and out of bed for interview today for the first time in a week. discussed status with pt's mother. 06/19: taper lithium to 150 BID through 06/21 morning, then DC. continue VPA 250 QHS through 06/21 [place], then DC. seroquel 50 tonight, then 25 tomorrow night, then DC. orders entered. in bed today, but reporting he continues to feel better. less sedated. 06/20 CTP 06/22: up and out of bed today. remains without HI/AVH. continues to experience derealization. asking for seroquel 200 QHS PRN. decrease ativan to 1 mg QHS. planning to DC sat or sat. 06/23: in bed. sleeping better. DC saturday. DC ativan today. Reason for continued inpatient stay Substantial Risk for: inability to function Time Spent With Patient Time: Total time managing care of this patient today ____ minutes.
[2024-06-23 20:00] VITALS: BP 150/85; PULSE 92; RESP 16; TEMP 36.9; O2SAT 97
[2024-06-23] MEDS: QUEtiapine Fumarate 200 MG TABLET PO (20:06)
[2024-06-23] MEDS: OLANZapine 10 MG TABLET 30 MG PO (20:06)
[2024-06-23] MEDS: Docusate Sodium 100 MG CAPSULE PO (20:06)
[2024-06-24] MEDS: Nicotine 21 MG PATCH.TD24 TRANSDERMA (08:41)
[2024-06-24] MEDS: Ammonium Lactate 12 % Lotion 226 GM BOTTLE 1 APPL TOPICAL (13:41)
--- NOTE | 2024-06-24 15:55 | HO.PSYCHPN ---
Subjective Subjective Date of Service: 06/24/24 Reason For Visit: HI/psychosis Interim History: cooperative. came to interview room. c/o resurgence of derealization. asking to restart lithium, which is agreed to. otherwise Sx remain under control. poor sleep, wants to continue seroquel 200 as well. per staff, feeling more agitated yesterday. none of this feels real. visible most of eves in milieu. Mental Status Exam Mental Status Exam Narrative: under blanket in bed. cooperative, came out for interview. no PMA/PMR. speech nml rate, amount, loudness, latency. flattened tone. thoughts linear and logical; thought disorder appears improved, better executive and memory function. mood anxious. no SI expressed. denies AVH, HI. Diagnostics Vital Signs (24Hr): Vital Signs - 24 hr 06/23/24 20:00 Temperature 98.4 F Pulse Rate 92 Respiratory Rate 16 Blood Pressure 150/85 H Pulse Oximetry 97 Oxygen Delivery Method Room Air BMI result Body Mass Index 26.2 Labs 06/03/24 20:38 06/08/24 19:55 Imaging Radiology Impressions: ITS Impressions Chest X-Ray 05/24/24 16:15 IMPRESSION: No evidence of acute disease Electronically signed by: Cholo Lopez MD 05/24/2024 04:32 PM EDT RP Brain MRI 05/29/24 11:29 IMPRESSION: Unremarkable contrast enhanced MRI of the brain. Electronically signed by: Misha Spears MD 05/29/2024 12:43 PM EDT RP Medications Medications Current Medications Acetaminophen (Acetaminophen 325 Mg Tablet) 650 mg PO Q6H PRN PRN Reason: Headache/Pain Mild Scale (1-3) Last Admin: 06/06/24 12:15 Dose: 650 mg Al Hydroxide/Mg Hydroxide (Magnesium Hydrox/Alum Hydrox 30 Ml Oral.Susp) 30 ml PO Q6H PRN PRN Reason: Heartburn/Nausea Last Admin: 06/06/24 18:17 Dose: 30 ml Albuterol Sulfate (Albuterol Sulfate 90 Mcg 8 Gm Inhaler) 2 puff INHALE RQ4H PRN PRN Reason: Shortness of Breath Last Admin: 06/09/24 12:47 Dose: 2 puff Calcium Carbonate (Calcium Carbonate 750 Mg Tab.Chew) 750 mg PO Q6H PRN PRN Reason: Heartburn Docusate Sodium (Docusate Sodium 100 Mg Capsule) 100 mg PO BID [facility] Last Admin: 06/24/24 08:55 Dose: Not Given Hydroxyzine HCl (Hydroxyzine Hcl 25 Mg Tablet) 25 mg PO Q6H PRN PRN Reason: Anxiety Last Admin: 06/06/24 20:07 Dose: 25 mg Lactic Acid (Ammonium Lactate 12 % Lotion 226 Gm Bottle) 1 appl TOPICAL DAILY RAVEN; Protocol Last Admin: 06/24/24 13:41 Dose: 1 appl Cleves Carbonate (Cleves Carbonate Er 300 Mg Tablet.Er) 1,200 mg PO BEDTIME RAVEN Loratadine (Loratadine 10 Mg Tablet) 10 mg PO DAILY [facility] Last Admin: 06/24/24 08:55 Dose: Not Given Magnesium Hydroxide (Milk Of Magnesia 30 Ml Oral.Susp) 30 ml PO DAILY PRN PRN Reason: Constipation Last Admin: 06/04/24 17:38 Dose: 30 ml Nicotine (Nicotine 21 Mg Patch.Td24) 21 mg TRANSDERMA DAILY [facility] Last Admin: 06/24/24 08:41 Dose: 21 mg Nicotine Polacrilex (Nicotine Polacrilex 2 Mg Gum) 4 mg BUCCAL Q2H PRN PRN Reason: Nicotine Cravings Last Admin: 06/17/24 23:58 Dose: 4 mg Olanzapine (Olanzapine 10 Mg Tablet) 30 mg PO BEDTIME RAVEN Last Admin: 06/23/24 20:06 Dose: 30 mg Quetiapine Fumarate (Quetiapine Fumarate 200 Mg Tablet) 200 mg PO BEDTIME PRN PRN Reason: insomnia Last Admin: 06/23/24 20:06 Dose: 200 mg Simethicone (Simethicone 80 Mg Tab.Chew) 80 mg PO QIDWMHS PRN PRN Reason: Gas Last Admin: 05/31/24 10:34 Dose: 80 mg Allergies Allergies Allergy/AdvReac Type Severity Reaction Status Date / Time morphine Allergy Rash Verified 05/23/24 09:54 oxycodone Allergy Rash Verified 05/23/24 09:54 Assessment & Plan Assessment & Plan (1) Encephalopathy: Qualifiers: Encephalopathy type: unspecified encephalopathy Qualified Code(s): G93.40 - Encephalopathy, unspecified Status: Acute Code(s): G93.40 - Encephalopathy, unspecified Assessment and Plan: 23 years old man who reported right-sided headache for last few months. He was admitted with 1st episode of psychosis but he also reported that he had been to emergency room and had CT scan of brain done. Apparently that did not reveal any significant abnormality. If his history is correct, an MRI of brain with and without contrast is warranted. (2) Psychosis: Status: Acute Code(s): F29 - Unspecified psychosis not due to a substance or known physiological condition Plan Admit to M3, conditional voluntary, 15 minute checks TSH, B12, Folate, A1C, Lipid Panel Continue Clonidine, Lorazepam prn, Trazodone prn, recent Olanzapine increase Haldol 5 mg bid to target psychotic thought process 05/28: pt refusing haldol. order DCed. reports only feels worse with zyprexa dosing increase. very anxious and tense. agrees to mood stabilizer trial, VPA. also c/o right FERRIS/burning sensation for months, seen by neuro, who recommended MRI. so ordered. 05/29: MRI WNL. slight improvement in anxiety this morning. continue VPA trial. discussed mgmt with pt's mother. 05/30 continue tx. 05/31 continue tx. 06/01: taper zyprexa, titrate seroquel per pt preference. zyprexa to 15 mg tonight, start seroquel at 300 QHS tonight. labs weds for[facility] - VPA. reporting hearing voices telling him they are telepathically communicating with him, but he does not believe it. also reporting non-stop imagery in his head all day. 06/02: poor sleep overnight. keep zyprexa at 15 and increase seroquel to 600. per pt's strong request, start lithium immediately, at 600 BID. check VPA-related labs tomorrow night. remains feeling very uncomfortable. 06/03: DC zyprexa as pt sedated this morning. continue meds otherwise. check labs tonight. 06/04: VPA 95. denies AH, HI, non-stop imagery presently. feeling too heavy, slow, forgetful. notes improvement with start of lithium. agrees to decrease VPA to 1250 and seroquel to 500 at HS. 06/05: c/o poor sleep. positive Sx remain absent. c/o feeling overwhelmed, is fairly flat, some thought disorder appears to be present (poor information retention). asking to increase seroquel back to 600, which is done. also askikng to continue VPA taper, which is agreed to, with VPA being cur back to 1000 mg QHS. labs ordered for saturday night. family mtg held with mother. 06/06: Continue current regimen and plans 06/07: Continue current regimen and plans. Decreased nighttime Seroquel by 200 mg 06/08: reporting resurgence of sense that nothing is real (ie that we inhabit a video game) as well as intrusive HI, starting from saturday. slept well last night, however. concerned it was the DC of zyprexa and start of seroquel that caused the change. asks to start high potency neuroleptic, agrees to begin with fluphenazine 5 mg QHS as of tonight. R/B discussed, incl akathisia and dystonia. draw labs tonight. 06/09: lithium 0.83, VPA 77.7. other labs reassuring. slept well. +intrusive HI thoughts, no AVH. increase prolixin to 5 BID as of tomorrow. decrease seroquel to 300 as of tonight. family mtg had with pt's mother. 06/10: pt notes h/o Spice use, as recently as 1.5 months ago. 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 poor sleep last night, increase seroquel back to 400 mg at HS. 06/11: c/o agitation on prolixin. declines to add cogentin or benadryl. DC prolixin, restart zyprexa 30 mg QHS. decrease seroquel to 300 QHS, plan to taper off entirely. 06/12: declined interview. c/o poor sleep. ativan 2 mg added for HS. otherwise continue current mgmt. 06/13: Continue current treatment plan. 06/14: Guarded. Patient reports feeling good today; does not report any issues. Patient stated, I like to keep to myself. I just want asleep . Denies SI/HI/VH/AH. Per nursing, patient has been lying in bed most of the day and refusing to shower. Continue current treatment plan. 06/15: no change. declines interview. continue current mgmt. 06/16: no change. declines interview. begin taper of VPA and lithium. VPA from 1000 mg to 750 mg tonight. lithium from 1200 mg daily to 1050 mg daily as of tomorrow. otherwise continue current mgmt. 06/17: denies AH, intrusive thoughts, imagery. appears sedated, continues to refuse to get out of bed. continue taper of mood stabilizers, now add seroquel taper. decrease VPA from 750 to 500 QHS. decrease lithium from 1050 daily to 900 daily. decrease seroquel from 300 QHS to 200 QHS. 06/18: taper VPA to 250 QHS, lithium to 300 BID, and seroquel to 100 QHS. less sedated, up and out of bed for interview today for the first time in a week. discussed status with pt's mother. 06/19: taper lithium to 150 BID through 06/21 morning, then DC. continue VPA 250 QHS through 06/21 [place], then DC. seroquel 50 tonight, then 25 tomorrow night, then DC. orders entered. in bed today, but reporting he continues to feel better. less sedated. 06/20 CTP 06/22: up and out of bed today. remains without HI/AVH. continues to experience derealization. asking for seroquel 200 QHS PRN. decrease ativan to 1 mg QHS. planning to DC sat or sat. 06/23: in bed. sleeping better. DC saturday. DC ativan today. 06/24: calm, cooperative. increase in derealization. asking to restart lithium; ordered at 1200 mg QHS. still poor sleep, continue seroquel PRN. planning for saturday discharge. 30 min phone convo with mother. Reason for continued inpatient stay Substantial Risk for: inability to function Time Spent With Patient Time: Total time managing care of this patient today __55__ minutes.
[2024-06-24 20:00] VITALS: BP 144/86; PULSE 100; RESP 16; TEMP 37.6; O2SAT 96
[2024-06-24] MEDS: Acetaminophen 325 MG TABLET 650 MG PO (20:01)
[2024-06-24] MEDS: QUEtiapine Fumarate 200 MG TABLET PO (20:01)
[2024-06-24] MEDS: Docusate Sodium 100 MG CAPSULE PO (20:01)
[2024-06-24] MEDS: Lithium Carbonate ER 300 MG TABLET.ER 1200 MG PO (20:02)
[2024-06-24] MEDS: OLANZapine 10 MG TABLET 30 MG PO (20:02)
[2024-06-25 08:00] VITALS: BP 135/75; PULSE 66; RESP 16; TEMP 36.9; O2SAT 97
[2024-06-25] MEDS: Nicotine 21 MG PATCH.TD24 TRANSDERMA (08:40)
--- NOTE | 2024-06-25 12:43 | PC.NURSE ---
Patient submitted 3 day notice.
--- NOTE | 2024-06-25 15:51 | P.PNPSI_ITS ---
Subjective Subjective Date of Service: 06/25/24 Reason For Visit: HI/psychosis Interim History: worsening of Sx today, resembling the first week of his stay. now c/o pressure or burning sensation in his brain which radiates down his body. also GI complaints. feeling a little agitated today. endorses HI, denies AH or imagery. reports he was having HI yesterday as well. reluctantly agrees to stay for the weekend, then takes it back. informed he will remain and can sign a 3-day notice, which he does. per staff, denies SI/HI. nothing feels real or right. more visible in milieu. taking meds. slept 8 hours. c/o tremor. Mental Status Exam Mental Status Exam Narrative: under blanket in bed. cooperative, came out for interview. no PMA/PMR. speech nml rate, amount, loudness, latency. flattened tone. thoughts linear and logical; thought disorder appears improved, better executive and memory function. mood a little agitated. denies SI/SIBI/AVH. endorses HI. Diagnostics Vital Signs (24Hr): Vital Signs - 24 hr 06/24/24 20:00 06/25/24 08:00 Temperature 99.6 F 98.4 F Pulse Rate 100 66 Respiratory Rate 16 16 Blood Pressure 144/86 H 135/75 Pulse Oximetry 96 97 Oxygen Delivery Method Room Air Room Air BMI result Body Mass Index 26.2 Labs 06/03/24 20:38 06/08/24 19:55 Imaging Radiology Impressions: ITS Impressions Chest X-Ray 05/24/24 16:15 IMPRESSION: No evidence of acute disease Electronically signed by: Cholo Lopez MD 05/24/2024 04:32 PM EDT RP Brain MRI 05/29/24 11:29 IMPRESSION: Unremarkable contrast enhanced MRI of the brain. Electronically signed by: Misha Spears MD 05/29/2024 12:43 PM EDT Medications Medications Current Medications Acetaminophen (Acetaminophen 325 Mg Tablet) 650 mg PO Q6H PRN PRN Reason: Headache/Pain Mild Scale (1-3) Last Admin: 06/24/24 20:01 Dose: 650 mg Al Hydroxide/Mg Hydroxide (Magnesium Hydrox/Alum Hydrox 30 Ml Oral.Susp) 30 ml PO Q6H PRN PRN Reason: Heartburn/Nausea Last Admin: 06/06/24 18:17 Dose: 30 ml Albuterol Sulfate (Albuterol Sulfate 90 Mcg 8 Gm Inhaler) 2 puff INHALE RQ4H PRN PRN Reason: Shortness of Breath Last Admin: 06/09/24 12:47 Dose: 2 puff Calcium Carbonate (Calcium Carbonate 750 Mg Tab.Chew) 750 mg PO Q6H PRN PRN Reason: Heartburn Docusate Sodium (Docusate Sodium 100 Mg Capsule) 100 mg PO BID RAVEN Last Admin: 06/25/24 08:42 Dose: Not Given Hydroxyzine HCl (Hydroxyzine Hcl 25 Mg Tablet) 25 mg PO Q6H PRN PRN Reason: Anxiety Last Admin: 06/06/24 20:07 Dose: 25 mg Lactic Acid (Ammonium Lactate 12 % Lotion 226 Gm Bottle) 1 appl TOPICAL DAILY RAVEN; Protocol Last Admin: 06/25/24 09:54 Dose: Not Given Thornton Carbonate (Thornton Carbonate Er 300 Mg Tablet.Er) 1,200 mg PO BEDTIME RAVEN Last Admin: 06/24/24 20:02 Dose: 1,200 mg Loratadine (Loratadine 10 Mg Tablet) 10 mg PO DAILY RAVEN Last Admin: 06/25/24 08:42 Dose: Not Given Magnesium Hydroxide (Milk Of Magnesia 30 Ml Oral.Susp) 30 ml PO DAILY PRN PRN Reason: Constipation Last Admin: 06/04/24 17:38 Dose: 30 ml Nicotine (Nicotine 21 Mg Patch.Td24) 21 mg TRANSDERMA DAILY [facility] Last Admin: 06/25/24 08:40 Dose: 21 mg Nicotine Polacrilex (Nicotine Polacrilex 2 Mg Gum) 4 mg BUCCAL Q2H PRN PRN Reason: Nicotine Cravings Last Admin: 06/17/24 23:58 Dose: 4 mg Olanzapine (Olanzapine 10 Mg Tablet) 30 mg PO BEDTIME RAVEN Last Admin: 06/24/24 20:02 Dose: 30 mg Quetiapine Fumarate (Quetiapine Fumarate 200 Mg Tablet) 200 mg PO BEDTIME PRN PRN Reason: insomnia Last Admin: 06/24/24 20:01 Dose: 200 mg Simethicone (Simethicone 80 Mg Tab.Chew) 80 mg PO QIDWMHS PRN PRN Reason: Gas Last Admin: 05/31/24 10:34 Dose: 80 mg Allergies Allergies Allergy/AdvReac Type Severity Reaction Status Date / Time morphine Allergy Rash Verified 05/23/24 09:54 oxycodone Allergy Rash Verified 05/23/24 09:54 Assessment & Plan Assessment & Plan (1) Encephalopathy: Qualifiers: Encephalopathy type: unspecified encephalopathy Qualified Code(s): G 93.40 - Encephalopathy, unspecified Status: Acute Code(s): G93.40 - Encephalopathy, unspecified Assessment and Plan: 23 years old man who reported right-sided headache for last few months. He was admitted with 1st episode of psychosis but he also reported that he had been to emergency room and had CT scan of brain done. Apparently that did not reveal any significant abnormality. If his history is correct, an MRI of brain with and without contrast is warranted. (2) Psychosis: Status: Acute Code(s): F29 - Unspecified psychosis not due to a substance or known physiological condition Plan Admit to M3, conditional voluntary, 15 minute checks TSH, B12, Folate, A1C, Lipid Panel Continue Clonidine, Lorazepam prn, Trazodone prn, recent Olanzapine increase Haldol 5 mg bid to target psychotic thought process 05/28: pt refusing haldol. order DCed. reports only feels worse with zyprexa dosing increase. very anxious and tense. agrees to mood stabilizer trial, VPA. also c/o right FERRIS/burning sensation for months, seen by neuro, who recommended MRI. so ordered. 05/29: MRI WNL. slight improvement in anxiety this morning. continue VPA trial. discussed mgmt with pt's mother. 05/30 continue tx. 05/31 continue tx. 06/01: taper zyprexa, titrate seroquel per pt preference. zyprexa to 15 mg tonight, start seroquel at 300 QHS tonight. labs weds [facility] - VPA. reporting hearing voices telling him they are telepathically communicating with him, but he does not believe it. also reporting non-stop imagery in his head all day. 06/02: poor sleep overnight. keep zyprexa at 15 and increase seroquel to 600. per pt's strong request, start lithium immediately, at 600 BID. check VPA- related labs tomorrow night. remains feeling very uncomfortable. 06/03: DC zyprexa as pt sedated this morning. continue meds otherwise. check labs tonight. 06/04: VPA 95. denies AH, HI, non-stop imagery presently. feeling too heavy, slow, forgetful. notes improvement with start of lithium. agrees to decrease VPA to 1250 and seroquel to 500 at HS. 06/05: c/o poor sleep. positive Sx remain absent. c/o feeling overwhelmed, is fairly flat, some thought disorder appears to be present (poor information retention). asking to increase seroquel back to 600, which is done. also askikng to continue VPA taper, which is agreed to, with VPA being cur back to 1000 mg QHS. labs ordered for saturday night. family mtg held with mother. 06/06: Continue current regimen and plans 06/07: Continue current regimen and plans. Decreased nighttime Seroquel by 200 mg 06/08: reporting resurgence of sense that nothing is real (ie that we inhabit a video game) as well as intrusive HI, starting from saturday. slept well last night, however. concerned it was the DC of zyprexa and start of seroquel that caused the change. asks to start high potency neuroleptic, agrees to begin with fluphenazine 5 mg QHS as of tonight. R/B discussed, incl akathisia and dystonia. draw labs tonight. 06/09: lithium 0.83, VPA 77.7. other labs reassuring. slept well. +intrusive HI thoughts, no AVH. increase prolixin to 5 BID as of tomorrow. decrease seroquel to 300 as of tonight. family mtg had with pt's mother. 06/10: pt notes h/o Spice use, as recently as 1.5 months ago. 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 poor sleep last night, increase seroquel back to 400 mg at HS. 06/11: c/o agitation on prolixin. declines to add cogentin or benadryl. DC prolixin, restart zyprexa 30 mg QHS. decrease seroquel to 300 QHS, plan to taper off entirely. 06/12: declined interview. c/o poor sleep. ativan 2 mg added for HS. otherwise continue current mgmt. 06/13: Continue current treatment plan. 06/14: Guarded. Patient reports feeling good today; does not report any issues. Patient stated, I like to keep to myself. I just want asleep . Denies SI/HI/VH/AH. Per nursing, patient has been lying in bed most of the day and refusing to shower. Continue current treatment plan. 06/15: no change. declines interview. continue current mgmt. 06/16: no change. declines interview. begin taper of VPA and lithium. VPA from 1000 mg to 750 mg tonight. lithium from 1200 mg daily to 1050 mg daily as of tomorrow. otherwise continue current mgmt. 06/17: denies AH, intrusive thoughts, imagery. appears sedated, continues to refuse to get out of bed. continue taper of mood stabilizers, now add seroquel taper. decrease VPA from 750 to 500 QHS. decrease lithium from 1050 daily to 900 daily. decrease seroquel from 300 QHS to 200 QHS. 06/18: taper VPA to 250 QHS, lithium to 300 BID, and seroquel to 100 QHS. less sedated, up and out of bed for interview today for the first time in a week. discussed status with pt's mother. 06/19: taper lithium to 150 BID through 06/21 morning, then DC. continue VPA 250 QHS through 06/21 [place], then DC. seroquel 50 tonight, then 25 tomorrow night, then DC. orders entered. in bed today, but reporting he continues to feel better. less sedated. 06/20 CTP 06/22: up and out of bed today. remains without HI/AVH. continues to experience derealization. asking for seroquel 200 QHS PRN. decrease ativan to 1 mg QHS. planning to DC sat or sat. 06/23: in bed. sleeping better. DC saturday. DC ativan today. 06/24: calm, cooperative. increase in derealization. asking to restart lithium; ordered at 1200 mg QHS. still poor sleep, continue seroquel PRN. planning for saturday discharge. 30 min phone convo with mother. 06/25: resurgence of Sx today. will stay until saturday for observation as lithium restarts. signed 3-day notice. having somatic Sx again, which have been gone since the early stages of his hospitalization. Reason for continued inpatient stay Substantial Risk for: inability to function and rapid decompensation Time Spent With Patient Time: Total time managing care of this patient today _35___ minutes.
[2024-06-25] MEDS: QUEtiapine Fumarate 200 MG TABLET PO (20:06)
[2024-06-25] MEDS: OLANZapine 10 MG TABLET 30 MG PO (20:06)
[2024-06-25] MEDS: Acetaminophen 325 MG TABLET 650 MG PO (20:06)
[2024-06-25] MEDS: Docusate Sodium 100 MG CAPSULE PO (20:07)
[2024-06-25] MEDS: Lithium Carbonate ER 300 MG TABLET.ER 1200 MG PO (20:07)
[2024-06-25 20:10] VITALS: BP 138/95; PULSE 126; RESP 16; TEMP 37; O2SAT 96
[2024-06-25 21:30] VITALS: BP 162/94; PULSE 97; RESP 18
[2024-06-25] MEDS: hydrOXYzine HCL 25 MG TABLET PO (21:37)
[2024-06-25 22:00] VITALS: BP 141/82; PULSE 103; RESP 18
[2024-06-26] MEDS: Nicotine 21 MG PATCH.TD24 TRANSDERMA (08:40)
[2024-06-26 13:15] VITALS: BP 131/84; PULSE 103; RESP 16; TEMP 37.2; O2SAT 99
[2024-06-26 15:46] VITALS: BP 140/94; PULSE 107; RESP 16; TEMP 37.2; O2SAT 96
--- NOTE | 2024-06-26 16:03 | P.PNPSI_ITS ---
Subjective Subjective Date of Service: 06/26/24 Reason For Visit: HI/psychosis Interim History: c/o insomnia. somatically preoccupied. agrees, reluctantly, to increase HS seroquel to 300 mg nightly PRN insomnia. planning to discharge saturday. per staff, 3-day up . +meds. +1 grp. D/C saturday. anx 8 eves. crabby. intrusive thoughts. BP 162/94, decreased to 141/82 with atarax. P 103. Mental Status Exam Mental Status Exam Narrative: under blanket in bed. cooperative, came out for interview. no PMA/PMR. speech nml rate, amount, loudness, latency. flattened tone. thoughts linear and logical; thought disorder appears improved, better executive and memory function. mood crabby. no SI/SIBI/AVH. endorses HI. Diagnostics Vital Signs (24Hr): Vital Signs - 24 hr 06/25/24 20:10 06/25/24 21:30 06/25/24 22:00 Temperature 98.6 F Pulse Rate 126 H 97 103 H Respiratory Rate 16 18 18 Blood Pressure 138/95 H 162/94 H 141/82 H Pulse Oximetry 96 Oxygen Delivery Method Room Air 06/26/24 13:15 06/26/24 15:46 Temperature 99.0 F 98.9 F Pulse Rate 103 H 107 H Respiratory Rate 16 16 Blood Pressure 131/84 140/94 H Pulse Oximetry 99 96 Oxygen Delivery Method Room Air Room Air BMI result Body Mass Index 26.2 Labs 06/03/24 20:38 06/08/24 19:55 Imaging Radiology Impressions: ITS Impressions Chest X-Ray 05/24/24 16:15 IMPRESSION: No evidence of acute disease Electronically signed by: Cholo Lopez MD 05/24/2024 04:32 PM EDT RP Brain MRI 05/29/24 11:29 IMPRESSION: Unremarkable contrast enhanced MRI of the brain. Electronically signed by: Misha Spears MD 05/29/2024 12:43 PM EDT RP Medications Medications Current Medications Acetaminophen (Acetaminophen 325 Mg Tablet) 650 mg PO Q6H PRN PRN Reason: Headache/Pain Mild Scale (1-3) Last Admin: 06/25/24 20:06 Dose: 650 mg Al Hydroxide/Mg Hydroxide (Magnesium Hydrox/Alum Hydrox 30 Ml Oral.Susp) 30 ml PO Q6H PRN PRN Reason: Heartburn/Nausea Last Admin: 06/06/24 18:17 Dose: 30 ml Albuterol Sulfate (Albuterol Sulfate 90 Mcg 8 Gm Inhaler) 2 puff INHALE RQ4H PRN PRN Reason: Shortness of Breath Last Admin: 06/09/24 12:47 Dose: 2 puff Calcium Carbonate (Calcium Carbonate 750 Mg Tab.Chew) 750 mg PO Q6H PRN PRN Reason: Heartburn Docusate Sodium (Docusate Sodium 100 Mg Capsule) 100 mg PO BID [facility] Last Admin: 06/26/24 08:41 Dose: Not Given Hydroxyzine HCl (Hydroxyzine Hcl 25 Mg Tablet) 25 mg PO Q6H PRN PRN Reason: Anxiety Last Admin: 06/25/24 21:37 Dose: 25 mg Lactic Acid (Ammonium Lactate 12 % Lotion 226 Gm Bottle) 1 appl TOPICAL DAILY [facility]; Protocol Last Admin: 06/26/24 08:41 Dose: Not Given [place] Carbonate ([place] Carbonate Er 300 Mg Tablet.Er) 1,200 mg PO BEDTIME [facility] Last Admin: 06/25/24 20:07 Dose: 1,200 mg Loratadine (Loratadine 10 Mg Tablet) 10 mg PO DAILY [facility] Last Admin: 06/26/24 08:41 Dose: Not Given Magnesium Hydroxide (Milk Of Magnesia 30 Ml Oral.Susp) 30 ml PO DAILY PRN PRN Reason: Constipation Last Admin: 06/04/24 17:38 Dose: 30 ml Nicotine (Nicotine 21 Mg Patch.Td24) 21 mg TRANSDERMA DAILY [facility] Last Admin: 06/26/24 08:40 Dose: 21 mg Nicotine Polacrilex (Nicotine Polacrilex 2 Mg Gum) 4 mg BUCCAL Q2H PRN PRN Reason: Nicotine Cravings Last Admin: 06/17/24 23:58 Dose: 4 mg Olanzapine (Olanzapine 10 Mg Tablet) 30 mg PO BEDTIME [facility] Last Admin: 06/25/24 20:06 Dose: 30 mg Quetiapine Fumarate (Quetiapine Fumarate 300 Mg Tablet) 300 mg PO BEDTIME PRN PRN Reason: insomnia Simethicone (Simethicone 80 Mg Tab.Chew) 80 mg PO QIDWMHS PRN PRN Reason: Gas Last Admin: 05/31/24 10:34 Dose: 80 mg Allergies Allergies Allergy/AdvReac Type Severity Reaction Status Date / Time morphine Allergy Rash Verified 05/23/24 09:54 oxycodone Allergy Rash Verified 05/23/24 09:54 Assessment & Plan Assessment & Plan (1) Encephalopathy: Qualifiers: Encephalopathy type: unspecified encephalopathy Qualified Code(s): G 93.40 - Encephalopathy, unspecified Status: Acute Code(s): G93.40 - Encephalopathy, unspecified Assessment and Plan: 23 years old man who reported right-sided headache for last few months. He was admitted with 1st episode of psychosis but he also reported that he had been to emergency room and had CT scan of brain done. Apparently that did not reveal any significant abnormality. If his history is correct, an MRI of brain with and without contrast is warranted. (2) Psychosis: Status: Acute Code(s): F29 - Unspecified psychosis not due to a substance or known physiological condition Plan Admit to M3, conditional voluntary, 15 minute checks TSH, B12, Folate, A1C, Lipid Panel Continue Clonidine, Lorazepam prn, Trazodone prn, recent Olanzapine increase Haldol 5 mg bid to target psychotic thought process 05/28: pt refusing haldol. order DCed. reports only feels worse with zyprexa dosing increase. very anxious and tense. agrees to mood stabilizer trial, VPA. also c/o right FERRIS/burning sensation for months, seen by neuro, who recommended MRI. so ordered. 05/29: MRI WNL. slight improvement in anxiety this morning. continue VPA trial. discussed mgmt with pt's mother. 05/30 continue tx. 05/31 continue tx. 06/01: taper zyprexa, titrate seroquel per pt preference. zyprexa to 15 mg tonight, start seroquel at 300 QHS tonight. labs weds for[place] - VPA. reporting hearing voices telling him they are telepathically communicating with him, but he does not believe it. also reporting non-stop imagery in his head all day. 06/02: poor sleep overnight. keep zyprexa at 15 and increase seroquel to 600. per pt's strong request, start lithium immediately, at 600 BID. check VPA- related labs tomorrow night. remains feeling very uncomfortable. 06/03: DC zyprexa as pt sedated this morning. continue meds otherwise. check labs tonight. 06/04: VPA 95. denies AH, HI, non-stop imagery presently. feeling too heavy, slow, forgetful. notes improvement with start of lithium. agrees to decrease VPA to 1250 and seroquel to 500 at HS. 06/05: c/o poor sleep. positive Sx remain absent. c/o feeling overwhelmed, is fairly flat, some thought disorder appears to be present (poor information retention). asking to increase seroquel back to 600, which is done. also askikng to continue VPA taper, which is agreed to, with VPA being cur back to 1000 mg QHS. labs ordered for saturday night. family mtg held with mother. 06/06: Continue current regimen and plans 06/07: Continue current regimen and plans. Decreased nighttime Seroquel by 200 mg 06/08: reporting resurgence of sense that nothing is real (ie that we inhabit a video game) as well as intrusive HI, starting from saturday. slept well last night, however. concerned it was the DC of zyprexa and start of seroquel that caused the change. asks to start high potency neuroleptic, agrees to begin with fluphenazine 5 mg QHS as of tonight. R/B discussed, incl akathisia and dystonia. draw labs tonight. 06/09: lithium 0.83, VPA 77.7. other labs reassuring. slept well. +intrusive HI thoughts, no AVH. increase prolixin to 5 BID as of tomorrow. decrease seroquel to 300 as of tonight. family mtg had with pt's mother. 06/10: pt notes h/o Spice use, as recently as 1.5 months ago. 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 poor sleep last night, increase seroquel back to 400 mg at HS. 06/11: c/o agitation on prolixin. declines to add cogentin or benadryl. DC prolixin, restart zyprexa 30 mg QHS. decrease seroquel to 300 QHS, plan to taper off entirely. 06/12: declined interview. c/o poor sleep. ativan 2 mg added for HS. otherwise continue current mgmt. 06/13: Continue current treatment plan. 06/14: Guarded. Patient reports feeling good today; does not report any issues. Patient stated, I like to keep to myself. I just want asleep . Denies SI/HI/VH/AH. Per nursing, patient has been lying in bed most of the day and refusing to shower. Continue current treatment plan. 06/15: no change. declines interview. continue current mgmt. 06/16: no change. declines interview. begin taper of VPA and lithium. VPA from 1000 mg to 750 mg tonight. lithium from 1200 mg daily to 1050 mg daily as of tomorrow. otherwise continue current mgmt. 06/17: denies AH, intrusive thoughts, imagery. appears sedated, continues to refuse to get out of bed. continue taper of mood stabilizers, now add seroquel taper. decrease VPA from 750 to 500 QHS. decrease lithium from 1050 daily to 900 daily. decrease seroquel from 300 QHS to 200 QHS. 06/18: taper VPA to 250 QHS, lithium to 300 BID, and seroquel to 100 QHS. less sedated, up and out of bed for interview today for the first time in a week. discussed status with pt's mother. 06/19: taper lithium to 150 BID through 06/21 morning, then DC. continue VPA 250 QHS through 06/21 [place], then DC. seroquel 50 tonight, then 25 tomorrow night, then DC. orders entered. in bed today, but reporting he continues to feel better. less sedated. 06/20 CTP 06/22: up and out of bed today. remains without HI/AVH. continues to experience derealization. asking for seroquel 200 QHS PRN. decrease ativan to 1 mg QHS. planning to DC sat or sat. 06/23: in bed. sleeping better. DC saturday. DC ativan today. 06/24: calm, cooperative. increase in derealization. asking to restart lithium; ordered at 1200 mg QHS. still poor sleep, continue seroquel PRN. planning for saturday discharge. 30 min phone convo with mother. 06/25: resurgence of Sx today. will stay until saturday for observation as lithium restarts. signed 3-day notice. having somatic Sx again, which have been gone since the early stages of his hospitalization. 06/26: anxious, somatically preoccupied. some HTN and tachycardia in recent days. has had lithium for 2 nights now, no improvement noted. due to concern for VPA withdrawal after rather rapid taper, give valium 10 mg now and T/C valium taper through discharge. planning for saturday discharge. intrusive HI continues. Reason for continued inpatient stay Substantial Risk for: harm to self, harm to others, inability to function and rapid decompensation Time Spent With Patient Time: Total time managing care of this patient today __35__ minutes.
[2024-06-26] MEDS: diazePAM 5 MG TABLET 10 MG PO (17:26)
[2024-06-26 19:21] VITALS: BP 144/92; PULSE 101; RESP 16; TEMP 36.8; O2SAT 98
[2024-06-26] MEDS: cloNIDine HCL 0.1 MG TABLET PO (19:31)
[2024-06-26] MEDS: QUEtiapine Fumarate 300 MG TABLET PO (19:45)
[2024-06-26 19:46] VITALS: BP 144/92; PULSE 101; RESP 16; TEMP 36.8; O2SAT 98
[2024-06-26] MEDS: Lithium Carbonate ER 300 MG TABLET.ER 1200 MG PO (19:46)
[2024-06-26] MEDS: OLANZapine 10 MG TABLET 30 MG PO (19:46)
[2024-06-26] MEDS: Docusate Sodium 100 MG CAPSULE PO (19:46)
[2024-06-27] MEDS: Nicotine 21 MG PATCH.TD24 TRANSDERMA (09:15)
[2024-06-27 19:49] VITALS: BP 146/89; PULSE 106; RESP 16; TEMP 36.9; O2SAT 98
[2024-06-27] MEDS: OLANZapine 10 MG TABLET 30 MG PO (20:05)
[2024-06-27] MEDS: Lithium Carbonate ER 300 MG TABLET.ER 1200 MG PO (20:05)
[2024-06-27 20:06] VITALS: BP 146/89
[2024-06-27] MEDS: QUEtiapine Fumarate 300 MG TABLET PO (20:06)
[2024-06-27] MEDS: cloNIDine HCL 0.1 MG TABLET PO (20:06)
--- NOTE | 2024-06-27 20:22 | P.PNPSI_ITS ---
Subjective Subjective Date of Service: 06/27/24 Reason For Visit: HI/psychosis Interim History: not bad. everything is better. per staff, anxious and paranoid. eating well. no breakfast or lunch saturday. +meds. slept about 9 hours. Mental Status Exam Mental Status Exam Narrative: under blanket in bed. cooperative. no PMA/PMR. speech nml rate, amount, loudness, latency. flattened tone. thoughts linear and logical; thought disorder appears improved, better executive and memory function. mood better. no SI/HI/SIBI/AVH expressed. Diagnostics Vital Signs (24Hr): Vital Signs - 24 hr 06/27/24 19:49 06/27/24 20:06 Temperature 98.4 F Pulse Rate 106 H Respiratory Rate 16 Blood Pressure 146/89 H 146/89 H Pulse Oximetry 98 Oxygen Delivery Method Room Air BMI result Body Mass Index 26.2 Labs 06/03/24 20:38 06/08/24 19:55 Imaging Radiology Impressions: ITS Impressions Chest X-Ray 05/24/24 16:15 IMPRESSION: No evidence of acute disease Electronically signed by: Cholo Lopez MD 05/24/2024 04:32 PM EDT RP Brain MRI 05/29/24 11:29 IMPRESSION: Unremarkable contrast enhanced MRI of the brain. Electronically signed by: Misha Spears MD 05/29/2024 12:43 PM EDT RP Medications Medications Current Medications Acetaminophen (Acetaminophen 325 Mg Tablet) 650 mg PO Q6H PRN PRN Reason: Headache/Pain Mild Scale (1-3) Last Admin: 06/25/24 20:06 Dose: 650 mg Al Hydroxide/Mg Hydroxide (Magnesium Hydrox/Alum Hydrox 30 Ml Oral.Susp) 30 ml PO Q6H PRN PRN Reason: Heartburn/Nausea Last Admin: 06/06/24 18:17 Dose: 30 ml Albuterol Sulfate (Albuterol Sulfate 90 Mcg 8 Gm Inhaler) 2 puff INHALE RQ4H PRN PRN Reason: Shortness of Breath Last Admin: 06/09/24 12:47 Dose: 2 puff Calcium Carbonate (Calcium Carbonate 750 Mg Tab.Chew) 750 mg PO Q6H PRN PRN Reason: Heartburn Clonidine HCl (Clonidine Hcl 0.1 Mg Tablet) 0.1 mg PO Q4H PRN; Protocol PRN Reason: severe anxiety Last Admin: 06/27/24 20:06 Dose: 0.1 mg Docusate Sodium (Docusate Sodium 100 Mg Capsule) 100 mg PO BID [facility] Last Admin: 06/27/24 20:13 Dose: Not Given Hydroxyzine HCl (Hydroxyzine Hcl 25 Mg Tablet) 25 mg PO Q6H PRN PRN Reason: Anxiety Last Admin: 06/25/24 21:37 Dose: 25 mg Lactic Acid (Ammonium Lactate 12 % Lotion 226 Gm Bottle) 1 appl TOPICAL DAILY [facility]; Protocol Last Admin: 06/27/24 09:16 Dose: Not Given [place] Carbonate ([place] Carbonate Er 300 Mg Tablet.Er) 1,200 mg PO BEDTIME [facility] Last Admin: 06/27/24 20:05 Dose: 1,200 mg Loratadine (Loratadine 10 Mg Tablet) 10 mg PO DAILY [facility] Last Admin: 06/27/24 09:16 Dose: Not Given Magnesium Hydroxide (Milk Of Magnesia 30 Ml Oral.Susp) 30 ml PO DAILY PRN PRN Reason: Constipation Last Admin: 06/04/24 17:38 Dose: 30 ml Nicotine (Nicotine 21 Mg Patch.Td24) 21 mg TRANSDERMA DAILY [facility] Last Admin: 06/27/24 09:15 Dose: 21 mg Nicotine Polacrilex (Nicotine Polacrilex 2 Mg Gum) 4 mg BUCCAL Q2H PRN PRN Reason: Nicotine Cravings Last Admin: 06/17/24 23:58 Dose: 4 mg Olanzapine (Olanzapine 10 Mg Tablet) 30 mg PO BEDTIME [facility] Last Admin: 06/27/24 20:05 Dose: 30 mg Quetiapine Fumarate (Quetiapine Fumarate 300 Mg Tablet) 300 mg PO BEDTIME PRN PRN Reason: insomnia Last Admin: 06/27/24 20:06 Dose: 300 mg Simethicone (Simethicone 80 Mg Tab.Chew) 80 mg PO QIDWMHS PRN PRN Reason: Gas Last Admin: 05/31/24 10:34 Dose: 80 mg Allergies Allergies Allergy/AdvReac Type Severity Reaction Status Date / Time morphine Allergy Rash Verified 05/23/24 09:54 oxycodone Allergy Rash Verified 05/23/24 09:54 Assessment & Plan Assessment & Plan (1) Encephalopathy: Qualifiers: Encephalopathy type: unspecified encephalopathy Qualified Code(s): G 93.40 - Encephalopathy, unspecified Status: Acute Code(s): G93.40 - Encephalopathy, unspecified Assessment and Plan: 23 years old man who reported right-sided headache for last few months. He was admitted with 1st episode of psychosis but he also reported that he had been to emergency room and had CT scan of brain done. Apparently that did not reveal any significant abnormality. If his history is correct, an MRI of brain with and without contrast is warranted. (2) Psychosis: Status: Acute Code(s): F29 - Unspecified psychosis not due to a substance or known physiological condition Plan Admit to M3, conditional voluntary, 15 minute checks TSH, B12, Folate, A1C, Lipid Panel Continue Clonidine, Lorazepam prn, Trazodone prn, recent Olanzapine increase Haldol 5 mg bid to target psychotic thought process 05/28: pt refusing haldol. order DCed. reports only feels worse with zyprexa dosing increase. very anxious and tense. agrees to mood stabilizer trial, VPA. also c/o right FERRIS/burning sensation for months, seen by neuro, who recommended MRI. so ordered. 05/29: MRI WNL. slight improvement in anxiety this morning. continue VPA trial. discussed mgmt with pt's mother. 05/30 continue tx. 05/31 continue tx. 06/01: taper zyprexa, titrate seroquel per pt preference. zyprexa to 15 mg tonight, start seroquel at 300 QHS tonight. labs weds [facility] - VPA. reporting hearing voices telling him they are telepathically communicating with him, but he does not believe it. also reporting non-stop imagery in his head all day. 06/02: poor sleep overnight. keep zyprexa at 15 and increase seroquel to 600. per pt's strong request, start lithium immediately, at 600 BID. check VPA- related labs tomorrow night. remains feeling very uncomfortable. 06/03: DC zyprexa as pt sedated this morning. continue meds otherwise. check labs tonight. 06/04: VPA 95. denies AH, HI, non-stop imagery presently. feeling too heavy, slow, forgetful. notes improvement with start of lithium. agrees to decrease VPA to 1250 and seroquel to 500 at HS. 06/05: c/o poor sleep. positive Sx remain absent. c/o feeling overwhelmed, is fairly flat, some thought disorder appears to be present (poor information retention). asking to increase seroquel back to 600, which is done. also askikng to continue VPA taper, which is agreed to, with VPA being cur back to 1000 mg QHS. labs ordered for saturday night. family mtg held with mother. 06/06: Continue current regimen and plans 06/07: Continue current regimen and plans. Decreased nighttime Seroquel by 200 mg 06/08: reporting resurgence of sense that nothing is real (ie that we inhabit a video game) as well as intrusive HI, starting from saturday. slept well last night, however. concerned it was the DC of zyprexa and start of seroquel that caused the change. asks to start high potency neuroleptic, agrees to begin with fluphenazine 5 mg QHS as of tonight. R/B discussed, incl akathisia and dystonia. draw labs tonight. 06/09: lithium 0.83, VPA 77.7. other labs reassuring. slept well. +intrusive HI thoughts, no AVH. increase prolixin to 5 BID as of tomorrow. decrease seroquel to 300 as of tonight. family mtg had with pt's mother. 06/10: pt notes h/o Spice use, as recently as 1.5 months ago. 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 poor sleep last night, increase seroquel back to 400 mg at HS. 06/11: c/o agitation on prolixin. declines to add cogentin or benadryl. DC prolixin, restart zyprexa 30 mg QHS. decrease seroquel to 300 QHS, plan to taper off entirely. 06/12: declined interview. c/o poor sleep. ativan 2 mg added for HS. otherwise continue current mgmt. 06/13: Continue current treatment plan. 06/14: Guarded. Patient reports feeling good today; does not report any issues. Patient stated, I like to keep to myself. I just want asleep . Denies SI/HI/VH/AH. Per nursing, patient has been lying in bed most of the day and refusing to shower. Continue current treatment plan. 06/15: no change. declines interview. continue current mgmt. 06/16: no change. declines interview. begin taper of VPA and lithium. VPA from 1000 mg to 750 mg tonight. lithium from 1200 mg daily to 1050 mg daily as of tomorrow. otherwise continue current mgmt. 06/17: denies AH, intrusive thoughts, imagery. appears sedated, continues to refuse to get out of bed. continue taper of mood stabilizers, now add seroquel taper. decrease VPA from 750 to 500 QHS. decrease lithium from 1050 daily to 900 daily. decrease seroquel from 300 QHS to 200 QHS. 06/18: taper VPA to 250 QHS, lithium to 300 BID, and seroquel to 100 QHS. less sedated, up and out of bed for interview today for the first time in a week. discussed status with pt's mother. 06/19: taper lithium to 150 BID through 06/21 morning, then DC. continue VPA 250 QHS through 06/21 [place], then DC. seroquel 50 tonight, then 25 tomorrow night, then DC. orders entered. in bed today, but reporting he continues to feel better. less sedated. 06/20 CTP 06/22: up and out of bed today. remains without HI/AVH. continues to experience derealization. asking for seroquel 200 QHS PRN. decrease ativan to 1 mg QHS. planning to DC sat or sat. 06/23: in bed. sleeping better. DC saturday. DC ativan today. 06/24: calm, cooperative. increase in derealization. asking to restart lithium; ordered at 1200 mg QHS. still poor sleep, continue seroquel PRN. planning for saturday discharge. 30 min phone convo with mother. 06/25: resurgence of Sx today. will stay until saturday for observation as lithium restarts. signed 3-day notice. having somatic Sx again, which have been gone since the early stages of his hospitalization. 06/26: anxious, somatically preoccupied. some HTN and tachycardia in recent days. has had lithium for 2 nights now, no improvement noted. due to concern for VPA withdrawal after rather rapid taper, give valium 10 mg now and T/C valium taper through discharge. planning for saturday discharge. intrusive HI continues. 06/27: feeling roundly improved. continue current mgmt. Reason for continued inpatient stay Substantial Risk for: inability to function and rapid decompensation Time Spent With Patient Time: Total time managing care of this patient today ____ minutes.
[2024-06-28] MEDS: Nicotine 21 MG PATCH.TD24 TRANSDERMA (09:19)
--- NOTE | 2024-06-28 17:59 | HO.PSYCHPN ---
Subjective Subjective Date of Service: 06/28/24 Reason For Visit: HI/psychosis Interim History: pt reports he is feeling better, no issues. reminded of labs tonight. per staff, denies dep/anx. guarded, visible. denying Sx. telling staff he's dealing with something medical, won't say what. slept 10 hours. Mental Status Exam Mental Status Exam Narrative: under blanket in bed. cooperative. no PMA/PMR. speech nml rate, amount, loudness, latency. flattened tone. thoughts linear and logical; thought disorder appears improved, better executive and memory function. mood better. no SI/HI/SIBI/AVH expressed. Diagnostics Vital Signs (24Hr): Vital Signs - 24 hr 06/27/24 19:49 06/27/24 20:06 Temperature 98.4 F Pulse Rate 106 H Respiratory Rate 16 Blood Pressure 146/89 H 146/89 H Pulse Oximetry 98 Oxygen Delivery Method Room Air BMI result Body Mass Index 26.2 Labs 06/03/24 20:38 06/08/24 19:55 Imaging Radiology Impressions: ITS Impressions Chest X-Ray 05/24/24 16:15 IMPRESSION: No evidence of acute disease Electronically signed by: Cholo Lopez MD 05/24/2024 04:32 PM EDT RP Brain MRI 05/29/24 11:29 IMPRESSION: Unremarkable contrast enhanced MRI of the brain. Electronically signed by: Misha Spears MD 05/29/2024 12:43 PM EDT RP Medications Medications Current Medications Acetaminophen (Acetaminophen 325 Mg Tablet) 650 mg PO Q6H PRN PRN Reason: Headache/Pain Mild Scale (1-3) Last Admin: 06/25/24 20:06 Dose: 650 mg Al Hydroxide/Mg Hydroxide (Magnesium Hydrox/Alum Hydrox 30 Ml Oral.Susp) 30 ml PO Q6H PRN PRN Reason: Heartburn/Nausea Last Admin: 06/06/24 18:17 Dose: 30 ml Albuterol Sulfate (Albuterol Sulfate 90 Mcg 8 Gm Inhaler) 2 puff INHALE RQ4H PRN PRN Reason: Shortness of Breath Last Admin: 06/09/24 12:47 Dose: 2 puff Calcium Carbonate (Calcium Carbonate 750 Mg Tab.Chew) 750 mg PO Q6H PRN PRN Reason: Heartburn Clonidine HCl (Clonidine Hcl 0.1 Mg Tablet) 0.1 mg PO Q4H PRN; Protocol PRN Reason: severe anxiety Last Admin: 06/27/24 20:06 Dose: 0.1 mg Docusate Sodium (Docusate Sodium 100 Mg Capsule) 100 mg PO BID RAVEN Last Admin: 06/28/24 09:21 Dose: Not Given Hydroxyzine HCl (Hydroxyzine Hcl 25 Mg Tablet) 25 mg PO Q6H PRN PRN Reason: Anxiety Last Admin: 06/25/24 21:37 Dose: 25 mg Lactic Acid (Ammonium Lactate 12 % Lotion 226 Gm Bottle) 1 appl TOPICAL DAILY RAVEN; Protocol Last Admin: 06/28/24 09:22 Dose: Not Given [place] Carbonate ([place]umwood Carbonate Er 300 Mg Tablet.Er) 1,200 mg PO BEDTIME RAVEN Last Admin: 06/27/24 20:05 Dose: 1,200 mg Loratadine (Loratadine 10 Mg Tablet) 10 mg PO DAILY RAVEN Last Admin: 06/28/24 09:21 Dose: Not Given Magnesium Hydroxide (Milk Of Magnesia 30 Ml Oral.Susp) 30 ml PO DAILY PRN PRN Reason: Constipation Last Admin: 06/04/24 17:38 Dose: 30 ml Nicotine (Nicotine 21 Mg Patch.Td24) 21 mg TRANSDERMA DAILY RAVEN Last Admin: 06/28/24 09:19 Dose: 21 mg Nicotine Polacrilex (Nicotine Polacrilex 2 Mg Gum) 4 mg BUCCAL Q2H PRN PRN Reason: Nicotine Cravings Last Admin: 06/17/24 23:58 Dose: 4 mg Olanzapine (Olanzapine 10 Mg Tablet) 30 mg PO BEDTIME RAVEN Last Admin: 06/27/24 20:05 Dose: 30 mg Quetiapine Fumarate (Quetiapine Fumarate 300 Mg Tablet) 300 mg PO BEDTIME PRN PRN Reason: insomnia Last Admin: 06/27/24 20:06 Dose: 300 mg Simethicone (Simethicone 80 Mg Tab.Chew) 80 mg PO QIDWMHS PRN PRN Reason: Gas Last Admin: 05/31/24 10:34 Dose: 80 mg Allergies Allergies Allergy/AdvReac Type Severity Reaction Status Date / Time morphine Allergy Rash Verified 05/23/24 09:54 oxycodone Allergy Rash Verified 05/23/24 09:54 Assessment & Plan Assessment & Plan (1) Encephalopathy: Qualifiers: Encephalopathy type: unspecified encephalopathy Qualified Code(s): G93.40 - Encephalopathy, unspecified Status: Acute Code(s): G93.40 - Encephalopathy, unspecified Assessment and Plan: 23 years old man who reported right-sided headache for last few months. He was admitted with 1st episode of psychosis but he also reported that he had been to emergency room and had CT scan of brain done. Apparently that did not reveal any significant abnormality. If his history is correct, an MRI of brain with and without contrast is warranted. (2) Psychosis: Status: Acute Code(s): F29 - Unspecified psychosis not due to a substance or known physiological condition Plan Admit to M3, conditional voluntary, 15 minute checks TSH, B12, Folate, A1C, Lipid Panel Continue Clonidine, Lorazepam prn, Trazodone prn, recent Olanzapine increase Haldol 5 mg bid to target psychotic thought process 05/28: pt refusing haldol. order DCed. reports only feels worse with zyprexa dosing increase. very anxious and tense. agrees to mood stabilizer trial, VPA. also c/o right FERRIS/burning sensation for months, seen by neuro, who recommended MRI. so ordered. 05/29: MRI WNL. slight improvement in anxiety this morning. continue VPA trial. discussed mgmt with pt's mother. 05/30 continue tx. 05/31 continue tx. 06/01: taper zyprexa, titrate seroquel per pt preference. zyprexa to 15 mg tonight, start seroquel at 300 QHS tonight. labs weds ford - VPA. reporting hearing voices telling him they are telepathically communicating with him, but he does not believe it. also reporting non-stop imagery in his head all day. 06/02: poor sleep overnight. keep zyprexa at 15 and increase seroquel to 600. per pt's strong request, start lithium immediately, at 600 BID. check VPA-related labs tomorrow night. remains feeling very uncomfortable. 06/03: DC zyprexa as pt sedated this morning. continue meds otherwise. check labs tonight. 06/04: VPA 95. denies AH, HI, non-stop imagery presently. feeling too heavy, slow, forgetful. notes improvement with start of lithium. agrees to decrease VPA to 1250 and seroquel to 500 at HS. 06/05: c/o poor sleep. positive Sx remain absent. c/o feeling overwhelmed, is fairly flat, some thought disorder appears to be present (poor information retention). asking to increase seroquel back to 600, which is done. also askikng to continue VPA taper, which is agreed to, with VPA being cur back to 1000 mg QHS. labs ordered for saturday night. family mtg held with mother. 06/06: Continue current regimen and plans 06/07: Continue current regimen and plans. Decreased nighttime Seroquel by 200 mg 06/08: reporting resurgence of sense that nothing is real (ie that we inhabit a video game) as well as intrusive HI, starting from saturday. slept well last night, however. concerned it was the DC of zyprexa and start of seroquel that caused the change. asks to start high potency neuroleptic, agrees to begin with fluphenazine 5 mg QHS as of tonight. R/B discussed, incl akathisia and dystonia. draw labs tonight. 06/09: lithium 0.83, VPA 77.7. other labs reassuring. slept well. +intrusive HI thoughts, no AVH. increase prolixin to 5 BID as of tomorrow. decrease seroquel to 300 as of tonight. family mtg had with pt's mother. 06/10: pt notes h/o Spice use, as recently as 1.5 months ago. 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 poor sleep last night, increase seroquel back to 400 mg at HS. 06/11: c/o agitation on prolixin. declines to add cogentin or benadryl. DC prolixin, restart zyprexa 30 mg QHS. decrease seroquel to 300 QHS, plan to taper off entirely. 06/12: declined interview. c/o poor sleep. ativan 2 mg added for HS. otherwise continue current mgmt. 06/13: Continue current treatment plan. 06/14: Guarded. Patient reports feeling good today; does not report any issues. Patient stated, I like to keep to myself. I just want asleep . Denies SI/HI/VH/AH. Per nursing, patient has been lying in bed most of the day and refusing to shower. Continue current treatment plan. 06/15: no change. declines interview. continue current mgmt. 06/16: no change. declines interview. begin taper of VPA and lithium. VPA from 1000 mg to 750 mg tonight. lithium from 1200 mg daily to 1050 mg daily as of tomorrow. otherwise continue current mgmt. 06/17: denies AH, intrusive thoughts, imagery. appears sedated, continues to refuse to get out of bed. continue taper of mood stabilizers, now add seroquel taper. decrease VPA from 750 to 500 QHS. decrease lithium from 1050 daily to 900 daily. decrease seroquel from 300 QHS to 200 QHS. 06/18: taper VPA to 250 QHS, lithium to 300 BID, and seroquel to 100 QHS. less sedated, up and out of bed for interview today for the first time in a week. discussed status with pt's mother. 06/19: taper lithium to 150 BID through 06/21 morning, then DC. continue VPA 250 QHS through 06/21 ford, then DC. seroquel 50 tonight, then 25 tomorrow night, then DC. orders entered. in bed today, but reporting he continues to feel better. less sedated. 06/20 CTP 06/22: up and out of bed today. remains without HI/AVH. continues to experience derealization. asking for seroquel 200 QHS PRN. decrease ativan to 1 mg QHS. planning to DC sat or sat. 06/23: in bed. sleeping better. DC saturday. DC ativan today. 06/24: calm, cooperative. increase in derealization. asking to restart lithium; ordered at 1200 mg QHS. still poor sleep, continue seroquel PRN. planning for saturday discharge. 30 min phone convo with mother. 06/25: resurgence of Sx today. will stay until saturday for observation as lithium restarts. signed 3-day notice. having somatic Sx again, which have been gone since the early stages of his hospitalization. 06/26: anxious, somatically preoccupied. some HTN and tachycardia in recent days. has had lithium for 2 nights now, no improvement noted. due to concern for VPA withdrawal after rather rapid taper, give valium 10 mg now and T/C valium taper through discharge. planning for saturday discharge. intrusive HI continues. 06/27: feeling roundly improved. continue current mgmt. 06/28: as for yesterday. Reason for continued inpatient stay Substantial Risk for: inability to function and rapid decompensation Time Spent With Patient Time: Total time managing care of this patient today ____ minutes.
[2024-06-28 19:47] VITALS: BP 147/90; PULSE 101; RESP 16; TEMP 37.8; O2SAT 97
[2024-06-28] MEDS: QUEtiapine Fumarate 300 MG TABLET PO (20:23)
[2024-06-28] MEDS: Lithium Carbonate ER 300 MG TABLET.ER 1200 MG PO (20:23)
[2024-06-28] MEDS: OLANZapine 10 MG TABLET 30 MG PO (20:23)
[2024-06-28 20:25] VITALS: BP 147/90
[2024-06-28] MEDS: cloNIDine HCL 0.1 MG TABLET PO (20:25)
[2024-06-29] MEDS: Nicotine 21 MG PATCH.TD24 TRANSDERMA (08:16)
--- NOTE | 2024-06-29 10:02 | PM.PSYDC ---
DS: Providers Provider Date of Service: 06/29/24 Date of admission: 05/26/24 14:14 Primary care physician: Randall Hicks DNP Consults: 05/28/24 12:23 Consult to Neurology Routine Consulting Provider: [facility] Reason for consultation: new onset psychosis with c/o right side FERRIS, pressure, burning. dizziness. Has provider been notified: No DS: Diagnosis Discharge Diagnosis (1) Encephalopathy: Status: Acute (2) Psychosis: Status: Acute DS: Medications Discharge Medications Home Medications: Home Medications ?Medication ?Instructions ?Recorded ?Confirmed fluticasone propionate 50 2 spray intranasal BID 05/24/24 05/24/24 mcg/actuation nasal spray,suspension Previous Rx's ?Medication ?Instructions ?Recorded lithium carbonate 300 mg 1,200 mg (4 x 300 mg) PO BEDTIME 06/29/24 tablet,extended release 30 days #120 tabs nicotine 21 mg/24 hr daily 1 patch topical DAILY 28 days #28 06/29/24 transdermal patch ea olanzapine 10 mg tablet 30 mg (3 x 10 mg) PO BEDTIME 30 06/29/24 days #90 tabs quetiapine 300 mg tablet 300 mg PO BEDTIME PRN insomnia 30 06/29/24 days #30 tabs Mental Status Exam Mental Status Exam Narrative: under blanket in bed. cooperative. no PMA/PMR. speech decr rate, amount, loudness. incr latency. flattened tone. thoughts linear and logical; thought disorder appears improved, better executive and memory function. mood OK. no SI/HI/SIBI/AVH. Data Imaging Diagnostic Imaging Impressions Chest X-Ray 05/24/24 16:15 IMPRESSION: No evidence of acute disease Electronically signed by: Cholo Lopez MD 05/24/2024 04:32 PM EDT RP Brain MRI 05/29/24 11:29 IMPRESSION: Unremarkable contrast enhanced MRI of the brain. Electronically signed by: Misha Spears MD 05/29/2024 12:43 PM EDT RP DS: Summary Hospital Course Hospital Course: per 05/27 admission note: HPI Subjective Notes: Craft Warning and Conditional Voluntary Narrative: 23 yo male, to ER with mother due to increasing sx of intrusive thoughts to kill his dog, CAH telling him to harm others, HI toward grandmother whom he lives with, difficulty with ADL's (mom reports no shower~3 days), paranoia, decrease in focus, and feeling others are watching him, listening to him and reading his thoughts. Reports CAH telling him to act on intrusive homicidal thoughts. Reports poor sleep, appetite. Pt tells team he wants help. Mother reports pt went to [place] impulsively to live with a friend, returning 1.5 months ago. While there, he rented a vehicle, refused to return it, tinted the windows and attempted to keep it. He was asked to leave friends apartment, so he went to [place] and lived on the [place]. Met with pt today who reports he does think that others are watching him, listening to him, saying critical things about him and he is having intrusive thoughts to harm his family. Reports these sx have been present for a few months, and the intrusive thoughts have just started. Reports symptoms of memory loss, concentration decrease, decrease in social skills, I feel like I am losing myself to psychosis. I think I will need to stay a long while. 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 Next appt 06/08/24 Fuad Estrada [phone] EMDR- scheduled for 05/27/24 to begin PHP: Hx Trials: Lexapro- makes me feel wierd , causes pressure headache, Sertraline, Lamictal, Vyvanse, Olanzapine- I think it should increase Medical Evaluation Reviewed: Yes [facility] Medical History (Updated 05/27/24 @ 15:45 by Balbina Martínez, RAMONA) Psychosis Narrative: Neuro appt scheduled 05/27/24 for pressure,pain in his head --CAT Scan x 2 with [facility] Denies seizure, denies migraine hx SOB- it can be hard to breathe when I talk Family History: Denies Social History: Born in [place] Raised by his mother No siblings Graduated high school, did one semester of college Lives with grandmother and her partner 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 TSH, B12, Folate, A1C, Lipid Panel. Continue Clonidine, Lorazepam prn, Trazodone prn, recent Olanzapine increase Haldol 5 mg bid to target psychotic thought process. 05/28: pt refusing haldol. order DCed. reports only feels worse with zyprexa dosing increase. very anxious and tense. agrees to mood stabilizer trial, VPA. also c/o right FERRIS/burning sensation for months, seen by neuro, who recommended MRI. so ordered. 05/29: MRI WNL. slight improvement in anxiety this morning. continue VPA trial. discussed mgmt with pt's mother. 05/30 continue tx. 05/31 continue tx. 06/01: taper zyprexa, titrate seroquel per pt preference. zyprexa to 15 mg tonight, start seroquel at 300 QHS tonight. labs weds [facility] - VPA. reporting hearing voices telling him they are telepathically communicating with him, but he does not believe it. also reporting non-stop imagery in his head all day. 06/02: poor sleep overnight. keep zyprexa at 15 and increase seroquel to 600. per pt's strong request, start lithium immediately, at 600 BID. check VPA-related labs tomorrow night. remains feeling very uncomfortable. 06/03: DC zyprexa as pt sedated this morning. continue meds otherwise. check labs tonight. 06/04: VPA 95. denies AH, HI, non-stop imagery presently. feeling too heavy, slow, forgetful. notes improvement with start of lithium. agrees to decrease VPA to 1250 and seroquel to 500 at HS. 06/05: c/o poor sleep. positive Sx remain absent. c/o feeling overwhelmed, is fairly flat, some thought disorder appears to be present (poor information retention). asking to increase seroquel back to 600, which is done. also askikng to continue VPA taper, which is agreed to, with VPA being cur back to 1000 mg QHS. labs ordered for saturday night. family mtg held with mother. 06/06: Continue current regimen and plans 06/07: Continue current regimen and plans. Decreased nighttime Seroquel by 200 mg 06/08: reporting resurgence of sense that nothing is real (ie that we inhabit a video game) as well as intrusive HI, starting from saturday. slept well last night, however. concerned it was the DC of zyprexa and start of seroquel that caused the change. asks to start high potency neuroleptic, agrees to begin with fluphenazine 5 mg QHS as of tonight. R/B discussed, incl akathisia and dystonia. draw labs tonight. 06/09: lithium 0.83, VPA 77.7. other labs reassuring. slept well. +intrusive HI thoughts, no AVH. increase prolixin to 5 BID as of tomorrow. decrease seroquel to 300 as of tonight. family mtg had with pt's mother. 06/10: pt notes h/o Spice use, as recently as 1.5 months ago. 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 poor sleep last night, increase seroquel back to 400 mg at HS. 06/11: c/o agitation on prolixin. declines to add cogentin or benadryl. DC prolixin, restart zyprexa 30 mg QHS. decrease seroquel to 300 QHS, plan to taper off entirely. 06/12: declined interview. c/o poor sleep. ativan 2 mg added for HS. otherwise continue current mgmt. 06/13: Continue current treatment plan. 06/14: Guarded. Patient reports feeling good today; does not report any issues. Patient stated, I like to keep to myself. I just want asleep . Denies SI/HI/VH/AH. Per nursing, patient has been lying in bed most of the day and refusing to shower. Continue current treatment plan. 06/15: no change. declines interview. continue current mgmt. 06/16: no change. declines interview. begin taper of VPA and lithium. VPA from 1000 mg to 750 mg tonight. lithium from 1200 mg daily to 1050 mg daily as of tomorrow. otherwise continue current mgmt. 06/17: denies AH, intrusive thoughts, imagery. appears sedated, continues to refuse to get out of bed. continue taper of mood stabilizers, now add seroquel taper. decrease VPA from 750 to 500 QHS. decrease lithium from 1050 daily to 900 daily. decrease seroquel from 300 QHS to 200 QHS. 06/18: taper VPA to 250 QHS, lithium to 300 BID, and seroquel to 100 QHS. less sedated, up and out of bed for interview today for the first time in a week. discussed status with pt's mother. 06/19: taper lithium to 150 BID through 06/21 morning, then DC. continue VPA 250 QHS through 06/21 ford, then DC. seroquel 50 tonight, then 25 tomorrow night, then DC. orders entered. in bed today, but reporting he continues to feel better. less sedated. 06/20 CTP 06/22: up and out of bed today. remains without HI/AVH. continues to experience derealization. asking for seroquel 200 QHS PRN. decrease ativan to 1 mg QHS. planning to DC sat or sat. 06/23: in bed. sleeping better. DC saturday. DC ativan today. 06/24: calm, cooperative. increase in derealization. asking to restart lithium; ordered at 1200 mg QHS. still poor sleep, continue seroquel PRN. planning for saturday discharge. 30 min phone convo with mother. 06/25: resurgence of Sx today. will stay until saturday for observation as lithium restarts. signed 3-day notice. having somatic Sx again, which have been gone since the early stages of his hospitalization. 06/26: anxious, somatically preoccupied. some HTN and tachycardia in recent days. has had lithium for 2 nights now, no improvement noted. due to concern for VPA withdrawal after rather rapid taper, give valium 10 mg now and T/C valium taper through discharge. planning for saturday discharge. intrusive HI continues. 06/27: feeling roundly improved. continue current mgmt. 06/28: as for yesterday. 06/29: continues to feel improved. denies target Sx. non-trough lithium level 1.40; likely due to taking all medication at HS and labs being done in the morning. no signs or symptoms of toxicity, BMP not concerning. continue current mgmt. meds reviewed, reconciled, prescribed. aftercare in place. no safety concerns. discharged as per plan. Time Spent with Patient Time attestation: Total time managing care of this patient today __35__ minutes. Discharge Plan Discharge Anticipated Discharge Date/Time: 06/29/24 11:00 Patient Disposition: Home, Self-Care Discharge Diagnosis: Substance Induced Psychotic Disorder Referrals: Ant London (Psychiatry) [Other] - 07/01/24 11:15 am (This appointment will take place over the phone. ) Therapy [Other] - 1 Week (*During your appointment with Ant, he will complete the referral for therapy through the agency. You will be set up with a therapist through the agency listed above within 1-2 weeks. ) Randall Hicks, JEANE [Primary Care Provider] - Discharge Medications: New quetiapine 300 mg Tablet 300 mg PO BEDTIME PRN (Reason: insomnia) 30 Days Qty: 30 0RF olanzapine 10 mg Tablet 30 mg PO BEDTIME 30 Days Qty: 90 0RF lithium carbonate 300 mg Tablet Extended Release 1,200 mg PO BEDTIME 30 Days Qty: 120 0RF Continued fluticasone propionate 50 mcg/actuation [place],Suspension 2 spray INTRANASAL BID nicotine 21 mg/24 hr patch 24 hour 1 patch topical DAILY 28 Days Qty: 28 0RF Discontinued clonidine HCl 0.1 mg tablet 0.1 mg PO QID olanzapine 20 mg tablet 20 mg PO BEDTIME escitalopram oxalate 5 mg tablet 5 mg PO DAILY Discharge Orders: Discharge Order (Routine); Ordered 06/29/24 Ordered By: Jovan White Diet: Advance to usual diet Activity on Discharge: As tolerated Stand Alone Forms: Patient Portal Discharge page, Community Support Print Language: Austrian Care Plan Goals: remain safe and stable in the outpatient treatment setting Health Concerns: none Plan of Treatment: take medications as prescribed, attend appointments as scheduled Assessment: not at imminent risk of harm to self or others Discharge Date/Time: 06/29/24 11:00
[2024-06-29 10:31] LABS: Anion Gap 12 (12-20); Blood Urea Nitrogen 18 mg/dL (9-16); Calcium 10.1 mg/dL (8.4-10.2); Carbon Dioxide 28 mmol/L (22-29); Chloride 105 mmol/L (96-108); Creatinine Clr Calc Pharmacy 129.4; Estimated Glomerular Filt Rate > 60; Glucose Random 93 mg/dL (60-115); Potassium 4.2 mmol/L (3.3-5.1); Sodium 141 mmol/L (135-145)
== END 2024-06-29 11:00 | disposition home or self-care (01) | DRG 751 ==
LOC: HO.ED 05-26 14:19 → HO.PADLT16 05-26 15:05
PROVIDERS: Physician Assistant Medical; Admitting Provider Psychiatry & Neurology Psychiatry; Emergency Provider Emergency Medicine Emergency Medical Services; PCP Nurse Practitioner Family; Visit Provider Psychiatry & Neurology Psychiatry
DX: F29 Unspecified psychosis not due to a substance or known physiological condition (principal); G93.40 Encephalopathy, unspecified; R45.850 Homicidal ideations; F17.210 Nicotine dependence, cigarettes, uncomplicated; Z20.822 Contact with and (suspected) exposure to COVID-19; Z71.6 Tobacco abuse counseling; Z79.51 Long term (current) use of inhaled steroids; Z79.899 Other long term (current) drug therapy
CPT/HCPCS: 0241U; 36415; 70553; 71046; 80048; 80053; 80061; 80076; 80164; 80178; 80307; 81003; 82140; 82607; 82746; 82947; 83036; 84439; 84443; 85025; 86617; 86618; 86780; 87468; 87469; 87478; 87484; 87798; 93005; 99285; A9585; S9485

== ENCOUNTER → 2024-05-26 14:14 | Outpatient (BNV) | payer BC, MEDICAID, SELFPAY | PROVIDERS: Admitting Provider Psychiatry & Neurology Psychiatry; Emergency Provider Emergency Medicine Emergency Medical Services; PCP Nurse Practitioner Family; Visit Provider Psychiatry & Neurology Neurology | DX: G93.40 Encephalopathy, unspecified (principal) | CPT/HCPCS: 99222 ==

== ENCOUNTER → 2024-05-26 14:14 | Outpatient (BNV) | payer BC, MEDICAID, SELFPAY | PROVIDERS: Admitting Provider Psychiatry & Neurology Psychiatry; Emergency Provider Emergency Medicine Emergency Medical Services; PCP Nurse Practitioner Family; Visit Provider Clinical Nurse Specialist Psychiatric/Mental Health, Adult | DX: F29 Unspecified psychosis not due to a substance or known physiological condition (principal); G93.40 Encephalopathy, unspecified | CPT/HCPCS: 90792; 99231; 99232; 99233; 99239 ==